=== PATIENT | male | born 1950 | race Asian ===

== ENCOUNTER 2016-05-01 07:50 | Outpatient (CLI) | payer MEDICARE, OTHER | END 2016-05-01 07:51 | disposition home or self-care (01) | DX: E78.5 Hyperlipidemia, unspecified (principal) ==

== ENCOUNTER 2016-05-29 14:27 | Outpatient (CLI) | payer MEDICARE, OTHER | END 2016-05-29 14:28 | disposition home or self-care (01) | DX: S50.02XA Contusion of left elbow, initial encounter (principal); R93.7 Abnormal findings on diagnostic imaging of other parts of musculoskeletal system ==

== ENCOUNTER 2017-12-27 07:02 | Outpatient (CLI) | payer MEDICARE, OTHER ==
[2017-12-27 12:17] LABS: BASOPHILS % (AUTO) 0.5 %; EOSINOPHILS # (AUTO) 0.2 10^3/uL (0.0-0.7); EOSINOPHILS % (AUTO) 2.2 %; LYMPHOCYTES # (AUTO) 3.1 10^3/uL (1.5-3.5); LYMPHOCYTES % (AUTO) 39.8 %; MEAN CORPUSCULAR HEMOGLOBIN 30.8 pg (27.0-31.0); MEAN CORPUSCULAR VOLUME 90.7 fL (80.0-94.0); MEAN PLATELET VOLUME 8.4 fL (7.4-11.4); MONOCYTES # (AUTO) 0.5 10^3/uL (0.0-1.0); MONOCYTES % (AUTO) 6.5 %; RED BLOOD COUNT 4.87 10^6/uL (4.70-6.10); RED CELL DISTRIBUTION WIDTH 14.1 % (12.0-15.0); WHITE BLOOD COUNT 7.8 x10^3/uL (4.8-10.8)
[2017-12-27 12:31] LABS: ALBUMIN 4.2 g/dL (3.2-5.5); ALBUMIN/GLOBULIN RATIO 1.6 (1.0-2.2); ALKALINE PHOSPHATASE 44 IU/L (42-121); ALT ALANINE AMINOTRANSFERASE 23 IU/L (10-60); AST ASPARTATE AMINOTRANSFERASE 22 IU/L (10-42); BILIRUBIN,TOTAL 1.3 mg/dL (0.2-1.0); BUN - BLOOD UREA NITROGEN 20 mg/dL (6-20); CALCIUM 8.8 mg/dL (8.5-10.3); CARBON DIOXIDE - CO2 26 mmol/L (21-32); CHLORIDE 106 mmol/L (101-111); CHOL/HDL RATIO 2.5 (<5.0); CHOLESTEROL 246 mg/dL; CREATININE 1.1 mg/dL (0.6-1.2); GFR - MDRD 67 (>89); GLUCOSE 80 mg/dL (70-100); HDL CHOLESTEROL 100 mg/dL; LDL CHOLESTEROL,CALCULATED 124 mg/dL; LDL/HDL RATIO 1.2 (<3.6); SODIUM 141 mmol/L (135-145); TOTAL PROTEIN 6.8 g/dL (6.7-8.2); VLDL CHOLESTEROL 22 mg/dL
[2017-12-27 18:37] LABS: HB2 TOTAL 15.9 g/dL; HEMOGLOBIN A1C 0.57 g/dL; HEMOGLOBIN A1C % 5.4 % (4.6-6.2)
== END 2017-12-27 07:03 | disposition home or self-care (01) ==
LOC: LAB.WCP 07:02
PROVIDERS: ATTEND Family Medicine
DX: E78.5 Hyperlipidemia, unspecified (principal); R73.01 Impaired fasting glucose
CPT/HCPCS: 36415; 80053; 80061; 83036; 83721; 84443; 85025

== ENCOUNTER 2020-03-07 09:33 | Outpatient (CLI) | payer MEDICARE, OTHER ==
[2020-03-07 12:28] LABS: BASOPHILS % (AUTO) 0.4 %; EOSINOPHILS # (AUTO) 0.2 10^3/uL (0.0-0.7); EOSINOPHILS % (AUTO) 1.8 %; HGB - HEMOGLOBIN 15.2 g/dL (14.0-18.0); LYMPHOCYTES % (AUTO) 18.8 %; MEAN CORPUSCULAR HGB CONC 33.5 g/dL (32.0-36.0); MEAN CORPUSCULAR VOLUME 92.5 fL (80.0-94.0); MONOCYTES # (AUTO) 0.7 10^3/uL (0.0-1.0); NEUTROPHILS # (AUTO) 7.4 10^3/uL (1.5-6.6); NEUTROPHILS % (AUTO) 71.6 %; PLT - PLATELET COUNT 70 10^3/uL (130-450); RED BLOOD COUNT 4.91 10^6/uL (4.70-6.10); RED CELL DISTRIBUTION WIDTH 13.3 % (12.0-15.0); WHITE BLOOD COUNT 10.4 x10^3/uL (4.8-10.8)
[2020-03-07 13:13] LABS: ALBUMIN 4.1 g/dL (3.2-5.5); ALBUMIN/GLOBULIN RATIO 1.5 (1.0-2.2); ALKALINE PHOSPHATASE 49 IU/L (42-121); ALT ALANINE AMINOTRANSFERASE 23 IU/L (10-60); AST ASPARTATE AMINOTRANSFERASE 22 IU/L (10-42); BILIRUBIN,TOTAL 1.1 mg/dL (0.2-1.0); BUN - BLOOD UREA NITROGEN 17 mg/dL (6-20); CALCIUM 9.4 mg/dL (8.5-10.3); CARBON DIOXIDE - CO2 26 mmol/L (21-32); CHLORIDE 105 mmol/L (101-111); CHOL/HDL RATIO 3.1 (<5.0); CHOLESTEROL 239 mg/dL; CREATININE 1.5 mg/dL (0.6-1.2); GLUCOSE 110 mg/dL (70-100); HDL CHOLESTEROL 76 mg/dL; LDL CHOLESTEROL,CALCULATED 138 mg/dL; LDL/HDL RATIO 1.8 (<3.6); SODIUM 143 mmol/L (135-145); TOTAL PROTEIN 6.8 g/dL (6.7-8.2); VLDL CHOLESTEROL 25 mg/dL
== END 2020-03-07 23:59 | disposition home or self-care (01) ==
LOC: LAB.WCP 09:33
PROVIDERS: ATTEND Family Medicine
DX: E78.5 Hyperlipidemia, unspecified (principal)
CPT/HCPCS: 36415; 80053; 80061; 83721; 84443; 85025

== ENCOUNTER 2020-03-09 10:49 | Emergency (ER) | payer MEDICARE ==
--- NOTE | 2020-03-09 11:15 | ED Physician Documentation ---
PD HPI ABD PAIN - Stated complaint Stated Complaint: ABDOMINAL PX - Chief complaint Chief Complaint: Abd Pain - History obtained from History obtained from: Patient - History of Present Illness Timing - onset: How many weeks ago (1) Timing - duration: Weeks (1) Timing - details: Gradual onset, Still present, Waxing and waning Quality: Cramping, Aching, Pain Location: RLQ Radiation: Other (right inguinal/scrotal area), Right flank Improved by: No: Eating Worsened by: No: Eating, Moving, Position Associated symptoms: Nausea. No: Fever, Vomiting, Diarrhea, Constipation, Dysuria, Hematuria Similar symptoms before: Has not had sx before Review of Systems Constitutional: denies: Fever, Chills Nose: denies: Rhinorrhea / runny nose, Congestion Throat: denies: Sore throat Cardiac: denies: Chest pain / pressure Respiratory: denies: Cough GI: denies: Nausea, Vomiting, Diarrhea : reports: Testicular pain (feels pain radiates to testicle at times, but not tender nor swelling in scrotum per se.). denies: Dysuria, Frequency, Testicular mass PD PAST MEDICAL HISTORY - Past Medical History Cardiovascular: None Respiratory: None Neuro: None Endocrine/Autoimmune: None - Present Medications Home Medications: Ambulatory Orders Medication Instructions Recorded Confirmed HYDROcod/ACETAM 5/325 [[place] 5/325] 1 ea PO Q6H PRN #18 tablet 03/09/20 Naproxen [EC-Naproxen] 500 mg PO BID #20 tablet. 03/09/20 Ondansetron Odt [Zofran] 4 mg TL Q6H PRN #10 tablet 03/09/20 - Allergies Allergies/Adverse Reactions: Allergies Allergy/AdvReac Type Severity Reaction Status Date / Time No Known Drug Allergies Allergy Verified 03/09/20 11:02 - Living Situation Living Arrangement: reports: At home - Social History Does the pt drink ETOH?: No - Family History Family history: denies: Aortic aneursym, Aortic dissection PD ED PE NORMAL - Vitals Vital signs reviewed: Yes - General General: Alert and oriented X 3, Well developed/nourished, Other (appears uncomfortable, standing in room and pacing some. ) - Neck Neck: Supple, no meningeal sign, No adenopathy - Cardiac Cardiac: RRR, No murmur - Respiratory Respiratory: Clear bilaterally - Abdomen Abdomen: Normal bowel sounds, Soft, Non distended, No organomegaly, Other (some tender without guarding RLQ. No inguinal masses nor hernias. ) - Male Male : Other (scrotum and testicle not tender and without any swelling. ) - Back Back: Other (mild right CVA tender. No rash nor sores. ) - Derm Derm: Normal color, Warm and dry Results - Vitals Vitals: Vital Signs - 24 hr 03/09/20 03/09/20 10:58 11:27 Temperature 35.6 C L Heart Rate 60 66 Respiratory 16 20 Rate Blood Pressure 177/94 H 151/103 H O2 Saturation 95 95 Oxygen O2 Source Room air - Labs Labs: Laboratory Tests 03/09/20 03/09/20 03/09/20 11:15 11:15 11:55 WBC 13.5 H RBC 4.94 Hgb 15.1 Hct 44.9 MCV 90.9 MCH 30.6 MCHC 33.6 RDW 13.1 Plt Count 222 MPV 9.8 Neut # (Auto) 11.3 H Lymph # (Auto) 1.4 L [place] # (Auto) 0.6 Eos # (Auto) 0.0 Baso # (Auto) 0.1 Absolute Nucleated RBC 0.00 Nucleated RBC % 0.0 Sodium 138 Potassium 3.5 Chloride 103 Carbon Dioxide 23 Anion Gap 12.0 BUN 17 Creatinine 1.4 H Estimated GFR (MDRD) 50 L Glucose 139 H Calcium 9.1 Total Bilirubin 0.9 AST 22 ALT 23 Alkaline Phosphatase 52 Total Protein 7.0 Albumin 4.3 Globulin 2.7 Albumin/Globulin Ratio 1.6 Lipase 22 Urine Color DARK YELLOW Urine Clarity CLEAR Urine pH 5.5 Ur Specific [place] >=1.030 H Urine Protein NEGATIVE Urine Glucose (UA) NEGATIVE Urine Ketones NEGATIVE Urine Occult Blood NEGATIVE Urine Nitrite NEGATIVE Urine Bilirubin NEGATIVE Urine Urobilinogen 0.2 (NORMAL) Ur Leukocyte Esterase NEGATIVE Ur Microscopic Review NOT INDICATED Urine Culture Comments NOT INDICATED - Rads (name of study) abd/pelvic CT Radiology: Prelim report reviewed (normal appendix, no acute process, no stones nor hydronephrosis. ), EMP read contemporaneously (I see some stranding around right kidney and I believe there is 4 mm stone distal right ureter just about to bladder. Differs from Rad reading. ), See rad report PD MEDICAL DECISION MAKING - ED course Complexity details: reviewed results, considered differential (His pain is really right lower quadrant with radiation to the scrotum/testicle and also the right flank. Consideration for kidney stone versus hernia versus right-sided diverticulitis or appendicitis.), d/w patient Departure - Departure Disposition: 01 Home, Self Care Clinical Impression: Abdominal pain Qualifiers: Abdominal location: right lower quadrant Qualified Code(s): R10.31 - Right l ower quadrant pain Condition: Stable Record reviewed to determine appropriate education?: Yes Instructions: ED Abdominal Pain Unkn Cause, ED Stone Renal W Colic Follow-Up: [place] [Provider Group] Prescriptions: Naproxen [EC-Naproxen] 500 mg PO BID #20 tablet. HYDROcod/ACETAM 5/325 [[place] 5/325] 1 ea PO Q6H PRN #18 tablet PRN Reason: Pain Ondansetron Odt [Zofran] 4 mg TL Q6H PRN #10 tablet PRN Reason: Nausea / Vomiting Comments: Urine is normal without any signs of infection. The CT scan read by the radiologist did not show any obvious abnormality to account for the pain. However a slight difference of opinion, I believe I am seeing a small stone at the distal ureter suggesting your pain is coming from passing a kidney stone. At this point it is reasonable to treat your symptoms with anti-inflammatories of naproxen twice daily for 5 to 7 days. Ondansetron if needed for nausea. Stay well-hydrated. Add Tylenol every 4-6 hours or hydrocodone if needed for worse pain. Recheck if not improved well/resolved over the next 2 to 3 days and return sooner if worsening. Discharge Date/Time: 03/09/20 14:11
[2020-03-09 11:23] LABS: BASOPHILS # (AUTO) 0.1 10^3/uL (0.0-0.1); BASOPHILS % (AUTO) 0.4 %; EOSINOPHILS % (AUTO) 0.1 %; HGB - HEMOGLOBIN 15.1 g/dL (14.0-18.0); LYMPHOCYTES # (AUTO) 1.4 10^3/uL (1.5-3.5); LYMPHOCYTES % (AUTO) 10.2 %; MEAN CORPUSCULAR HEMOGLOBIN 30.6 pg (27.0-31.0); MEAN CORPUSCULAR HGB CONC 33.6 g/dL (32.0-36.0); MEAN CORPUSCULAR VOLUME 90.9 fL (80.0-94.0); MEAN PLATELET VOLUME 9.8 fL (7.4-11.4); MONOCYTES # (AUTO) 0.6 10^3/uL (0.0-1.0); MONOCYTES % (AUTO) 4.5 %; NEUTROPHILS # (AUTO) 11.3 10^3/uL (1.5-6.6); NEUTROPHILS % (AUTO) 84.3 %; PLT - PLATELET COUNT 222 10^3/uL (130-450); RED BLOOD COUNT 4.94 10^6/uL (4.70-6.10); RED CELL DISTRIBUTION WIDTH 13.1 % (12.0-15.0); WHITE BLOOD COUNT 13.5 x10^3/uL (4.8-10.8)
[2020-03-09 11:28] VITALS: BP 151/103
[2020-03-09 11:36] LABS: ALBUMIN 4.3 g/dL (3.2-5.5); ALBUMIN/GLOBULIN RATIO 1.6 (1.0-2.2); BILIRUBIN,TOTAL 0.9 mg/dL (0.2-1.0); CALCIUM 9.1 mg/dL (8.5-10.3); CREATININE 1.4 mg/dL (0.6-1.2)
[2020-03-09] MEDS ORDERED: KETOROLAC 30 MG/ML VIAL IVP STA (11:37)
[2020-03-09] MEDS ORDERED: HYDROmorphone 1 MG/ML CARPUJECT IVP STA ×2 (11:37→13:29)
[2020-03-09] MEDS ORDERED: SODIUM CHLORIDE 0.9% 1,000 ML IV STA (11:37)
[2020-03-09 12:31] LABS: BILIRUBIN,URINE NEGATIVE (NEGATIVE); GLUCOSE, URINE (UA) NEGATIVE (NEGATIVE); KETONES,URINE (UA) NEGATIVE (NEGATIVE); LEUKOCYTE ESTERASE, URINE NEGATIVE (NEGATIVE); NITRITE,URINE NEGATIVE (NEGATIVE); OCCULT BLOOD,URINE NEGATIVE (NEGATIVE); PH,URINE 5.5 PH (5.0-7.5); PROTEIN,URINE NEGATIVE (NEGATIVE); UROBILINOGEN,URINE 0.2 (NORMAL) E.U./dL (NORMAL)
[2020-03-09 12:32] LABS: CLARITY,URINE CLEAR (CLEAR)
--- NOTE | 2020-03-09 12:50 | CT Report ---
PROCEDURE: Abdomen/Pelvis WO INDICATIONS: RLQ abd pain TECHNIQUE: Noncontrast 5 mm thick sections acquired from the diaphragms to the symphysis. 5 mm coronal and sagi ttal reformats were then performed. For radiation dose reduction, the following was used: automated exposure control, adjustment of mA and/or kV according to patient size. COMPARISON: None. FINDINGS: Image quality: Somewhat limited by absence of both oral and intravenous contrast. ABDOMEN: Lung bases: Lung bases are clear. Heart size is normal. Solid organs: Liver and spleen are normal in size. Gallbladder appears normal Pancreas is normal i n contours. No adrenal nodules. Kidneys are normal in size, without hydronephrosis or nephrolithias is. Peritoneum and bowel: Unenhanced bowel loops demonstrate normal wall thickness and caliber. No free fluid or air. Nodes and vessels: No retroperitoneal or mesenteric adenopathy by size criteria. Aorta and inferior vena cava are normal in caliber. Miscellaneous: No ventral hernias. PELVIS: Genitourinary: Bladder wall thickness is normal. Miscellaneous: No inguinal hernias or adenopathy. A normal appendix was found at the right lower qu adrant. Additionally, several pelvic phleboliths were seen within the retroperitoneum but no definite urinary tract stone is found. Bones: No suspicious bony lesions. No vertebral body compression fractures. IMPRESSION: No hydronephrosis or nephrolithiasis seen. A normal appendix was found at the right lower quadrant. S ource of current reported right lower quadrant pain is not identified. Reviewed by: Ugo Argueta MD on 03/09/2020 12:49 PM PST Approved by: Ugo Argueta MD on 03/09/2020 12:49 PM PST Station ID: [id number]
== END 2020-03-09 14:11 | disposition home or self-care (01) ==
LOC: ED 10:49
DX: R10.31 Right lower quadrant pain (principal)
CPT/HCPCS: 36415; 74176; 80053; 81003; 83690; 85025; 96374; 96375; 99284; J1170; 81001; 87086

== ENCOUNTER 2020-03-11 08:00 | Outpatient (CLI) | payer MEDICARE, OTHER | END 2020-03-11 23:59 | disposition home or self-care (01) | LOC: LAB.R 08:00 | PROVIDERS: ATTEND Internal Medicine | DX: Z12.11 Encounter for screening for malignant neoplasm of colon (principal) | CPT/HCPCS: 82274 ==

== ENCOUNTER 2020-03-11 08:00 | Outpatient (CLI) | payer MEDICARE, OTHER ==
[2020-03-11 18:46] LABS: BILIRUBIN,URINE NEGATIVE (NEGATIVE); GLUCOSE, URINE (UA) NEGATIVE (NEGATIVE); KETONES,URINE (UA) NEGATIVE (NEGATIVE); LEUKOCYTE ESTERASE, URINE NEGATIVE (NEGATIVE); NITRITE,URINE NEGATIVE (NEGATIVE); OCCULT BLOOD,URINE TRACE-INTA (NEGATIVE); PROTEIN,URINE NEGATIVE (NEGATIVE); UROBILINOGEN,URINE 0.2 (NORMAL) E.U./dL (NORMAL)
[2020-03-11 19:38] LABS: BACTERIA,URINE None Seen /HPF (None Seen); CLARITY,URINE CLEAR (CLEAR); MUCUS,URINE Few Strands; RBC,URINE 0-5 /HPF (0-5); SQUAMOUS EPITHELIAL CELL,UR RARE Squamous (<= Few)
== END 2020-03-11 23:59 | disposition home or self-care (01) ==
LOC: LAB.WCP 08:00
PROVIDERS: ATTEND Internal Medicine
DX: R10.31 Right lower quadrant pain (principal)
CPT/HCPCS: 81001; 87086

== ENCOUNTER 2020-03-14 13:20 | Outpatient (CLI) | payer MEDICARE, OTHER ==
[2020-03-14 09:35] LABS: ABNORMAL LYMPHS % (MANUAL) 0 %; BAND NEUTROPHILS % (MANUAL) 0 %
[2020-03-14 11:38] LABS: BASOPHILS # (AUTO) 0.1 10^3/uL (0.0-0.1); BASOPHILS % (AUTO) 0.6 %; EOSINOPHILS # (AUTO) 0.3 10^3/uL (0.0-0.7); EOSINOPHILS % (AUTO) 3.2 %; HGB - HEMOGLOBIN 15.3 g/dL (14.0-18.0); LYMPHOCYTES # (AUTO) 2.2 10^3/uL (1.5-3.5); LYMPHOCYTES % (AUTO) 23.6 %; MEAN CORPUSCULAR HEMOGLOBIN 30.9 pg (27.0-31.0); MEAN CORPUSCULAR HGB CONC 33.3 g/dL (32.0-36.0); MEAN CORPUSCULAR VOLUME 92.7 fL (80.0-94.0); MEAN PLATELET VOLUME 10.4 fL (7.4-11.4); MONOCYTES # (AUTO) 0.7 10^3/uL (0.0-1.0); NEUTROPHILS # (AUTO) 6.2 10^3/uL (1.5-6.6); NEUTROPHILS % (AUTO) 65.3 %; RED BLOOD COUNT 4.95 10^6/uL (4.70-6.10); WHITE BLOOD COUNT 9.5 x10^3/uL (4.8-10.8)
[2020-03-14 12:11] LABS: EOSINOPHILS # (MANUAL) 0.4 10^3/uL (0-0.7); LYMPHOCYTES # (MANUAL) 2.9 10^3/uL (1.5-3.5); LYMPHOCYTES % (MANUAL) 30 %; MONOCYTES # (MANUAL) 0.5 10^3/uL (0.0-1.0); PLATELET MORPHOLOGY PLATELET CLUMPING (NORMAL); RBC MORPHOLOGY (MULTIPLE) NORMAL APPEARANCE (NORMAL)
[2020-03-14 12:12] LABS: PLATELET ESTIMATE, MANUAL NORMAL (130-450,000) (NORMAL)
[2020-03-14 12:21] LABS: CALCIUM 8.7 mg/dL (8.5-10.3); CREATININE 1.4 mg/dL (0.6-1.2)
[2020-03-14 12:33] LABS: FOLATE 10.08 ng/mL (5.90 - >24.8)
[2020-03-15 12:17] LABS: HEPATITIS B SURFACE ANTIGEN NON-REACTIVE (NON-REACTIVE)
[2020-03-15 12:18] LABS: HEPATITIS C ANTIBODY NON-REACTIVE (NON-REACTIVE)
[2020-03-15 14:01] LABS: HIV AG/AB 4TH GEN NON-REACTIVE (NON-REACTIVE)
== END 2020-03-14 23:58 | disposition home or self-care (01) ==
LOC: LAB.WCP 13:20
PROVIDERS: ATTEND Internal Medicine
DX: R10.31 Right lower quadrant pain (principal); D69.6 Thrombocytopenia, unspecified
CPT/HCPCS: 36415; 80048; 82607; 82746; 85025; 86704; 86803; 87340; G0475; 87389

== ENCOUNTER 2020-03-23 07:57 | Outpatient (CLI) | payer MEDICARE ==
[2020-03-23] MEDS ORDERED: IOVERSOL 320 100 ML VIAL IVP ONE ×2 (08:09→13:53)
[2020-03-23] MEDS ORDERED: IOVERSOL 320 50 ML VIAL ONE (08:09)
--- NOTE | 2020-03-23 10:10 | CT Report ---
PROCEDURE: Abdomen/Pelvis W INDICATIONS: RT LOWER QUAD ABD PAIN CONTRAST: IV CONTRAST: Optiray 320 ml: 100 PO CONTRAST: Optiray 320 ml50 TECHNIQUE: After the administration of iodonated contrast, 5 mm thick sections acquired from the diaphragms to t he symphysis. 5 mm thick coronal and sagittal reformats were acquired. For radiation dose reduction , the following was used: automated exposure control, adjustment of mA and/or kV according to patien t size. COMPARISON: None. FINDINGS: Image quality: Excellent. ABDOMEN: Lung bases: Lung bases are clear. Heart size is normal. Solid organs: Liver and spleen are normal in size and enhancement. Gallbladder is normal. Biliar y system is non dilated. Pancreas enhances normally. No adrenal nodules. Kidneys demonstrate nilesh l size and enhancement, without hydronephrosis. Peritoneum and bowel: Bowel loops demonstrate normal wall thickness and caliber. No free fluid or a ir. There is diverticulosis without evidence of diverticulitis. Nodes and vessels: No retroperitoneal or mesenteric adenopathy by size criteria. The aorta has mild atherosclerosis. Aorta and inferior vena cava are normal in size. Miscellaneous: No ventral hernias. PELVIS: Genitourinary: Bladder wall thickness is normal. Miscellaneous: No inguinal hernias or adenopathy. Bones: No suspicious bony lesions. No vertebral body compression fractures. IMPRESSION: 1. No acute abdominal or pelvic abnormality. 2. Normal appendix. 3. No nephroureteral calculi. 4. Diverticulosis without evidence of diverticulitis. Reviewed by: Johnny Hinojosa on 03/23/2020 10:09 AM [facility] Approved by: Johnny Hinojosa on 03/23/2020 10:09 AM [facility] Station ID: [id number]
[2020-03-23] MEDS ORDERED: IOVERSOL 320 50 ML VIAL PO ONE (13:53)
== END 2020-03-23 07:58 | disposition home or self-care (01) ==
LOC: DI 07:57
PROVIDERS: ATTEND Internal Medicine
DX: K57.90 Diverticulosis of intestine, part unspecified, without perforation or abscess without bleeding (principal)
CPT/HCPCS: 74177; Q9967

== ENCOUNTER 2020-05-13 11:04 | Day surgery (SDC) | payer MEDICARE, OTHER ==
[2020-05-13] MEDS ORDERED: LACTATED RINGERS 1,000 ML IV ONE (11:43)
[2020-05-13] MEDS ORDERED: MIDAZOLAM 2 MG/2 ML VIAL ONE ×2 (14:00→14:26)
[2020-05-13] MEDS ORDERED: fentaNYL 250 MCG/5 ML VIAL ONE (14:00)
--- NOTE | 2020-05-13 14:06 | HISTORY & PHYSICAL EXAMINATION ---
Chief Complaint - Chief Complaint Chief Complaint: right lower quadrant pain Abdominal Pain HPI - History Obtained From History obtained from: Patient Exam limitations: No limitations - History of Present Illness Severity at the worst: Moderate (pain improving) HPI Comment/Other: He has musculoskeletal pain. He has known diverticulosis. He has never had colon cancer screening PMH/PSH - Past Medical History Cardiovascular: positive: None Respiratory: positive: None Neuro: positive: None Endocrine/Autoimmune: positive: None MRSA Hx?: No - Past Surgical History General: positive: Other Social & Family Hx - Social History Does the pt smoke?: No Smoking Status: Never smoker Does the pt drink ETOH?: No Meds/Allgy - Home Medications Home Medications: Ambulatory Orders Medication Instructions Recorded Confirmed Atorvastatin [Lipitor] 20 mg PO DAILY 05/13/20 05/13/20 Finasteride [Proscar] 1.25 mg PO DAILY 05/13/20 05/13/20 - Allergies Allergies/Adverse Reactions: Allergies Allergy/AdvReac Type Severity Reaction Status Date / Time No Known Drug Allergies Allergy Verified 03/09/20 11:02 Review of Systems - Other Findings Other Findings: 10 pt ros as above otherwise unremarkable Exam - Vital Signs Reviewed Vital Signs: Yes Vital Signs: Vital Signs x48h Temp Pulse Resp BP Pulse Ox 05/13/20 11:46 16 126/94 H 05/13/20 11:19 36.1 C L 64 16 139/101 H 98 - Physical Exam General Appearance: positive: No acute distress, Alert Eyes Bilateral: positive: Normal inspection, PERRL, EOMI ENT: positive: No signs of dehydration Neck: positive: No JVD, Trachea midline Respiratory: positive: No respiratory distress Cardiovascular: positive: Regular rate & rhythm Abdomen: positive: Non-tender, No distention Neurologic/Psychiatric: positive: Oriented x3 Impression/Plan - Problem List Problem List: He presents for colon cancer screening. parq held and consent obtained
[2020-05-13] MEDS ORDERED: LACTATED RINGERS 600 ML IV ONE (14:31)
[2020-05-13 15:12] VITALS: BP 108/86
== END 2020-05-13 11:05 | disposition home or self-care (01) ==
LOC: SDS 11:04
PROVIDERS: ATTEND Surgery
DX: R10.31 Right lower quadrant pain (principal); K57.30 Diverticulosis of large intestine without perforation or abscess without bleeding
CPT/HCPCS: 45378; J3010; J7120

== ENCOUNTER 2020-11-30 08:00 | Outpatient (CLI) | payer MEDICARE, OTHER ==
[2020-11-30 12:43] LABS: ESTIMATED AVERAGE GLUCOSE 117 mg/dL (70-100); HEMOGLOBIN A1c% 5.7 % (4.27-6.07)
[2020-11-30 12:52] LABS: ALT ALANINE AMINOTRANSFERASE 36 IU/L (10-60); BUN - BLOOD UREA NITROGEN 20 mg/dL (6-20); CARBON DIOXIDE - CO2 26 mmol/L (21-32); CHLORIDE 108 mmol/L (101-111); CHOL/HDL RATIO 2.3 (<5.0); CHOLESTEROL 186 mg/dL; CREATININE 1.1 mg/dL (0.6-1.2); GFR - MDRD 66 (>89); GLUCOSE 103 mg/dL (70-100); HDL CHOLESTEROL 81 mg/dL; LDL CHOLESTEROL,CALCULATED 90 mg/dL; LDL/HDL RATIO 1.1 (<3.6); POTASSIUM 3.9 mmol/L (3.5-5.0); SODIUM 142 mmol/L (135-145); TRIGLYCERIDES 73 mg/dL; VLDL CHOLESTEROL 15 mg/dL
== END 2020-11-30 23:59 | disposition home or self-care (01) ==
LOC: LAB.WCP 08:00
PROVIDERS: ATTEND Internal Medicine
DX: E78.5 Hyperlipidemia, unspecified (principal); R73.01 Impaired fasting glucose
CPT/HCPCS: 36415; 80048; 80061; 83036; 83721; 84460

== ENCOUNTER 2024-07-01 18:13 | Inpatient (IN) ==
[2024-07-01 21:06] LABS: BASOPHILS # (AUTO) 0.1 10^3/uL (0.0-0.1); BASOPHILS % (AUTO) 0.7 %; EOSINOPHILS # (AUTO) 1.2 10^3/uL (0.0-0.7); EOSINOPHILS % (AUTO) 12.9 %; HCT - HEMATOCRIT 37.5 % (42.0-52.0); HGB - HEMOGLOBIN 12.4 g/dL (14.0-18.0); LYMPHOCYTES # (AUTO) 0.9 10^3/uL (1.5-3.5); LYMPHOCYTES % (AUTO) 9.4 %; MEAN CORPUSCULAR HEMOGLOBIN 31.1 pg (27.0-31.0); MEAN CORPUSCULAR HGB CONC 33.1 g/dL (32.0-36.0); MEAN PLATELET VOLUME 9.1 fL (7.4-11.4); MONOCYTES % (AUTO) 10.3 %; NEUTROPHILS # (AUTO) 6.2 10^3/uL (1.5-6.6); NEUTROPHILS % (AUTO) 66.4 %; PLT - PLATELET COUNT 153 10^3/uL (130-450); RED BLOOD COUNT 3.99 10^6/uL (4.70-6.10); RED CELL DISTRIBUTION WIDTH 19.2 % (12.0-15.0); WHITE BLOOD COUNT 9.4 x10^3/uL (4.8-10.8)
[2024-07-01 21:19] LABS: ALBUMIN 2.7 g/dL (3.2-5.5); CALCIUM 7.5 mg/dL (8.5-10.3); CREATININE 0.9 mg/dL (0.6-1.3); POTASSIUM 3.7 mmol/L (3.5-4.5); TOTAL PROTEIN 5.4 g/dL (6.4-8.9)
[2024-07-01 21:20] LABS: INR 1.4 (0.8-1.2); PT - PROTHROMBIN TIME 14.7 secs (9.9-12.6)
[2024-07-01] MEDS ORDERED: iohexoL-300 100 ML VIAL ONE (21:20)
[2024-07-01 21:34] LABS: DIFFERENTIAL COMMENT MANUAL=AUTO DIFF; PLATELET ESTIMATE, MANUAL NORMAL (130-450,000) (NORMAL); PLATELET MORPHOLOGY NORMAL APPEARANCE (NORMAL); RBC MORPHOLOGY (MULTIPLE) 1+ OVALOCYTES (NORMAL); WBC MORPHOLOGY (MULTIPLE) 1+ SMUDGE CELLS (NORMAL)
[2024-07-01] MEDS: iohexoL-300 100 ML VIAL IVP ONE (21:55)
--- NOTE | 2024-07-01 22:04 | ED Physician Documentation ---
History of Present Illness Stated complaint Stated Complaint: BILAT LEG PX Chief complaint Chief Complaint: Ext Problem History obtained from History obtained from: Patient and Family (spouse who is present in the room) Additonal information Additional information: Patient is a 73-year-old male presenting to the emergency department with bilateral lower leg swelling. Patient has past medical history remarkable for stage IV lung cancer. Patient was only diagnosed a few months ago. He was diagnosed with non-small cell lung carcinoma he is currently undergoing palliative radiation and chemotherapy of capmatinib with Dr. Olmedo's office. Patient has mets to L-spine and T-spine on PET scan in April. He has findings of right lung collapse secondary to pleural effusion as well. He has had bilateral lower leg swelling going on for about a week but notes is at the worst it can be at this point. He can walk but has significant swelling associated with that he was scheduled for an ultrasound of his lower extremities today. The residential pest control technician saw significant bilateral clot burden and called the ER where he was sent after significant finding. Patient is not on blood thinners no adverse reactions to blood thinners in the past no history of GI bleeds. He has some shortness of breath that has been going on for about a week as well. He has no fevers or chills no redness to his legs. No numbness or tingling. Meds/Allgy Home Medications Ambulatory Orders Medication Instructions Recorded Confirmed magnesium gluconate 27 mg 27 mg PO BID 02/17/24 06/24/24 magnesium (500 mg) tablet mv-mn-folic 200 mcg-vit K 15 1 cap PO DAILY 02/17/24 06/24/24 mcg-lutein 5 mg-zeaxanthin 1 mg capsule (PreserVision AREDS 2 Plus Multivit) omega-3 fatty acids 1,000 mg 1,000 mg PO QDAY 02/17/24 06/24/24 capsule vit B complex 100 combo no.2 100 1 tab PO DAILY 02/17/24 06/24/24 mg tablet,extended release (B-100 Complex ER) finasteride 5 mg tablet 1.25 mg PO DAILY 02/18/24 06/24/24 magnesium oxide-magnesium amino 4 cap PO QDAY 03/23/24 06/24/24 acid chelate 300 mg capsule pantoprazole 40 mg tablet,delayed 40 mg PO BID #90 tabs 03/25/24 06/24/24 release (Protonix) folic acid 1 mg tablet 1 mg PO QDAY #90 tabs 05/01/24 06/24/24 lorazepam 0.5 mg tablet 0.5 mg PO ONCE PRN anxiety #7 tabs 05/05/24 06/24/24 oxycodone 10 mg tablet 20 mg (2 x 10 mg) PO Q3H PRN pain 05/08/24 06/24/24 #480 tabs capmatinib 150 mg tablet 300 mg (2 x 150 mg) PO BID #120 05/26/24 06/24/24 tabs Permanent Disabled Placard #1 ea 05/27/24 06/24/24 prochlorperazine maleate 10 mg 10 mg PO Q6H PRN nausea and 06/07/24 06/24/24 tablet vomiting #120 tabs fentanyl 100 mcg/hr transdermal 1 patch transdermal Q72H #10 ea 06/08/24 06/24/24 patch ondansetron 4 mg disintegrating 4 mg PO Q6H PRN nausea and 06/08/24 06/24/24 tablet vomiting #60 tabs fentanyl 75 mcg/hr transdermal 1 patch transdermal Q72H #5 ea 06/19/24 06/24/24 patch fluconazole 100 mg tablet 100 mg PO QDAY #1 tab 06/19/24 06/24/24 (Diflucan) nystatin 100,000 unit/mL oral 5 ml PO QID #200 mL 06/19/24 06/24/24 suspension sucralfate 1 gram tablet See Rx Instructions .Route 06/30/24 .COMPLEX #400 tabs Allergies Allergies Allergy/AdvReac Type Severity Reaction Status Date / Time No Known Drug Allergies Allergy Verified 07/01/24 18:26 PFSH Active Problems All Active Problems Encounter for antineoplastic chemotherapy (Acute) Leg swelling (Acute) Dyspnea (Acute) Muscle weakness (generalized) (Acute) Stage II pressure ulcer of buttock (Acute) Oral candidiasis (Acute) Obstructive pneumonia (Acute) Obstructive airway disease (Acute) Dehydration (Acute) Back pain (Acute) Collapse of right lung (Acute) Non-small cell lung cancer metastatic to liver (Acute) Spondylosis (Acute) Advance care planning (Acute) Cancer associated pain (Acute) Healthcare maintenance (Acute) 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(Acute) Anxiety (Acute) Constipation due to opioid therapy (Acute) Caregiver burden (Acute) Counseling regarding advance care planning and goals of care (Acute) Anorexia (Acute) Endobronchial mass (Acute) Helicobacter pylori gastritis (Acute) Epigastric pain (Acute) Allergic arthritis of right knee (Acute) Acute arthritis (Acute) Rotator cuff impingement syndrome (Acute) Diverticulitis, colon (Acute) Thrombocytopenia (Acute) DJD (degenerative joint disease), lumbar (Acute) Mixed hyperlipidemia (Acute) Medical History Medical History Gastritis Skin nodule Angular cheilitis Inflamed seborrheic keratosis Onychomycosis Chronic rhinitis Right upper quadrant abdominal pain Male pattern alopecia Exposure to hepatitis B 02/2020, + core antibody and - surface antigen Degenerative joint disease (DJD) of lumbar spine Hyperlipidemia History of diverticulosis Surgical History Surgical History H/O endoscopy History of esophagogastroduodenoscopy (EGD) (~03/25/24) gastritis, no ulcer History of hydrocelectomy History of colonoscopy Family History Family History Mother Diabetes Father CVA (cerebral vascular accident) Brother Diabetes Aunt Breast cancer Son Arthritis Social History Social History Smoking Status: Former smoker If you are a former smoker, when did you quit? (Date/Year): 1999 Number of Years Smoked: 20 How many cigarettes a day do you smoke? (20 cigarettes=1 Pk): 10 Second hand tobacco smoke exposure: No Do you dip or chew tobacco?: No Do you vape?: No Initiate information on smoking cessation: No Living arrangement: At home Marital Status: Living Condition: With spouse/s.o. 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: Yes Known occupational exposures/hazards (Current/Previous): toxins w/ pest control work Service: No POLST Patient has POLST: No Exam Constitutional normal general appearance HENMT normocephalic, head/scalp atraumatic and hearing grossly normal bilaterally Eyes PERRL, EOMs intact bilaterally and conjunctivae normal Neck/C-Spine visual inspection normal Lymph no lymphadenopathy noted Chest inspection of chest normal Respiratory breath sounds equal bilaterally and normal respiratory effort Diminished breath sound on right lungs, no pitting edema, no crackles, no wheeze or rales Cardiovascular normal heart rate noted, regular rhythm noted and no gallop Gastrointestinal abdomen normal to inspection Extremities . Patient 17-year-old female brought in by her boyfriend after she was trying to get into the car when she slipped and fell rolled her ankle and her knee. She thought her patella dislocated. She notes this happened before but when she was picked by up by her boyfriend she felt it pop back into place she has persistent pain to her left knee and left ankle. No numbness sensation no previous injury to this knee but she did dislocate her patella on her right leg. She took 2 ibuprofen before coming to the ER no head injury no LOC. Patient denies being . Capillary refill intact Skin skin color normal Results Vitals Vitals: Vital Signs - 24 hr 07/01/24 18:26 07/01/24 21:14 Temperature 37 C Temperature Source Temporal Artery Scan Pulse Rate 85 87 Respiratory Rate 18 16 Blood Pressure 107/78 111/72 O2 Saturation 98 95 O2 Source Room air Room air Pain Intensity 9 6 Oxygen O2 Source Room air Labs Labs: Laboratory Tests 07/01/24 21:00 WBC 9.4 RBC 3.99 L Hgb 12.4 L Hct 37.5 L MCV 94.0 MCH 31.1 H MCHC 33.1 RDW 19.2 H Plt Count 153 MPV 9.1 Neut # (Auto) 6.2 Lymph # (Auto) 0.9 L [place] # (Auto) 1.0 Eos # (Auto) 1.2 H Baso # (Auto) 0.1 Absolute Nucleated RBC 0.00 Band Neuts % (Manual) Not Reportable Abnorm Lymph % (Manual) Not Reportable Nucleated RBC % 0.0 Neutrophils # (Manual) Not Reportable Lymphocytes # (Manual) Not Reportable Monocytes # (Manual) Not Reportable Eosinophils # (Manual) Not Reportable Basophils # (Manual) Not Reportable Differential Comment MANUAL=AUTO DIFF WBC Morphology 1+ SMUDGE CELLS Platelet Estimate NORMAL (130-450,000) Platelet Morphology NORMAL APPEARANCE RBC Morph Micro Appear 1+ OVALOCYTES PT 14.7 H INR 1.4 H Sodium 135 Potassium 3.7 Chloride 104 Carbon Dioxide 28 Anion Gap 3.0 L BUN 16 Creatinine 0.9 Estimated GFR (MDRD) 82 L Glucose 139 H Calcium 7.5 L Total Bilirubin 1.0 AST 20 ALT 20 Alkaline Phosphatase 538 H Troponin I High Sens 11.3 Total Protein 5.4 L Albumin 2.7 L Globulin 2.7 Albumin/Globulin Ratio 1.0 Rads (name of study) CT/PE: Relevant Findings:: Prelim report reviewed and EMP independent interpretation of test PD Medical Decision Making ED course Complexity details: reviewed old records and reviewed results ED course: Patient 73-year-old male presents with bilateral lower leg swelling he had an ultrasound done outpatient for swelling going on for the past week that did show significant clots in bilateral legs. Patient has been having shortness of breath so he was sent to the ER. He has no chest pain only increased shortness of breath he is able to walk on bilateral lower legs he has extensive metastatic cancer from stage IV non-small cell lung cancer. He is currently undergoing palliative treatment at this time with Dr. Olmedo's office. CBC and CMP are unremarkable. CTA chest: Left lower lobe subsegmental pulmonary emboli. RV LV ratios is greater than 1, which can be a CT sign of right heart strain. This was called to the [facility] emergency department. Moderate right pleural effusion is new. This may be malignant. Right middle lobe collapse with bronchial occlusion again seen. Liver lesions, adrenal nodule, diffuse bone metastases again seen, not well evaluated on this study. Consider dedicated future oncologic surveillance imaging. ROMARIO score pending based on the troponin. Patient in no acute distress. Patient signed out to Dr. Valero. Discharge Plan Discharge Prescriptions: No Action finasteride 5 mg tablet 1.25 mg PO DAILY oxycodone 10 mg tablet 20 mg PO Q3H PRN (Reason: pain) Qty: 480 0RF capmatinib 150 mg tablet 300 mg PO BID Qty: 120 5RF prochlorperazine maleate 10 mg tablet 10 mg PO Q6H PRN (Reason: nausea and vomiting) Qty: 120 0RF fluconazole [Diflucan] 100 mg tablet 100 mg PO QDAY Qty: 1 0RF nystatin 100,000 unit/mL suspension 5 ml PO QID Qty: 200 2RF Rx Instructions: swish and swallow new RX today fentanyl 75 mcg/hr patch 72 hour 1 patch transdermal Q72H Qty: 5 0RF sucralfate 1 gram tablet See Rx Instructions .ROUTE .COMPLEX Qty: 400 6RF Dose Instruction: take 1 tablet by mouth before meals and at bedtime TOTAL 4 TIMES DAILY Rx Instructions: take 1 tablet by mouth before meals and at bedtime TOTAL 4 TIMES DAILY pantoprazole [Protonix] 40 mg tablet,delayed release (DR/EC) 40 mg PO BID Qty: 90 3RF folic acid 1 mg tablet 1 mg PO QDAY Qty: 90 1RF magnesium gluconate 27 mg magnesium (500 mg) tablet 27 mg PO BID B-100 Complex 100 mg tablet extended release 1 tab PO DAILY omega-3 fatty acids 1,000 mg capsule 1,000 mg PO QDAY PreserVision AREDS 2 Plus MV 200 mcg-15 mcg- 5 mg-1 mg capsule 1 cap PO DAILY magnesium oxide-Mg AA chelate 300 mg capsule 4 cap PO QDAY lorazepam 0.5 mg tablet 0.5 mg PO ONCE PRN (Reason: anxiety) Qty: 7 0RF Rx Instructions: to use one hour before imaging or procedures for anxiety (DME) Permanent Disabled Placard Misc See Rx Instructions .ROUTE .MEDSUPPLY Qty: 1 0RF Rx Instructions: As directed ondansetron 4 mg tablet,disintegrating 4 mg PO Q6H PRN (Reason: nausea and vomiting) Qty: 60 3RF fentanyl 100 mcg/hr patch 72 hour 1 patch transdermal Q72H Qty: 10 0RF Print Language: [place] Stand Alone Forms: PCP List
--- NOTE | 2024-07-01 22:29 | CT Report ---
PROCEDURE: CT Angio Chest INDICATIONS: sob, with BE dvts CONTRAST: 70CC [id number] TECHNIQUE: After the administration of intravenous contrast, 2 mm axial images were acquired from the pulmonary apices to the posterior costophrenic angles during the arterial phase. In addition, 1 mm lung kernel and 5 mm soft tissue kernel reconstructions were performed. 3-dimensional coronal oblique maximum int ensity projection (MIP) reformats, 8 mm axial MIP, and 5 mm coronal and sagittal MPR reformats were t hen performed through the thorax. For radiation dose reduction, the following was used: automated exp osure control, adjustment of mA and/or kV according to patient size. COMPARISON: 03/31/2024 FINDINGS: Image quality: Diagnostic Lungs and pleura:Moderate right pleural effusion, new. Right middle lobe complete atelectasis again s een, with bronchial occlusion. No dense airspace disease in the left lung. Lingular scarring/atelecta sis is present. Mediastinum, heart, and esophagus: Left lower lobe subsegmental pulmonary emboli. Normal heart size. Prominent subcarinal lymph node measures 1.1 cm. RV LV ratios is greater than 1. Chest wall and thyroid: Unremarkable Upper abdomen: Liver lesions again seen, not well assessed on this study. Right adrenal nodule again seen Bones: Diffuse bone metastases. IMPRESSION: Left lower lobe subsegmental pulmonary emboli. RV LV ratios is greater than 1, which can be a CT sign of right heart strain. This was called to the [facility] emergency department. Moderate right pleural effusion is new. This may be malignant. Right middle lobe collapse with bronch ial occlusion again seen. Liver lesions, adrenal nodule, diffuse bone metastases again seen, not well evaluated on this study. Consider dedicated future oncologic surveillance imaging. Reviewed by: Rodri Negrete MD on 07/01/2024 10:27 PM PDT Approved by: Rodri Negrete MD on 07/01/2024 10:27 PM PDT Station ID: [id number]
[2024-07-01] MEDS: ENOXAPARIN 100 MG/ML SYRINGE SUBQ SCH (22:42)
[2024-07-01] MEDS ORDERED: SUCRALFATE 1 GM SCH (23:30)
--- NOTE | 2024-07-01 23:36 | HISTORY & PHYSICAL EXAMINATION ---
Chief Complaint Chief Complaint Chief Complaint: Leg swelling and shortness of breath History of Present Illness Admitted From Admitted From:: Home History Obtained From Records Reviewed: Yes History obtained from: patient, family at bedside,ED physician Exam Limitations: Telemedicine History of Present Illness HPI Comment/Other: Mr. Christian presented to the ED for follow up of lower extremity swelling. Doppler ultrasound demonstrated bilateral lower extremity DVTs. Patient also reported shortness of breath that has been associated with his lower extremity edema and has progressively worsened over the past week. He denied cough or chest pain. CT was obtained in the ED and demonstrated right subsegmental PE. patient vitals were stable on room air, he was without chest pain. Troponin and EKG within normal limits. Hospitalist asked to admit for observation and intiation of anticoagulation. Review of Systems Status of ROS: 10 or more systems reviewed and unremarkable except as noted in history and below PFSH Active Problems All Active Problems (Updated 07/01/24 @ 23:15 by Amena Newsome PA-C) Pulmonary embolism on left (Acute) Acute bilateral deep vein thrombosis (DVT) of popliteal veins (Acute) Encounter for antineoplastic chemotherapy (Acute) Leg swelling (Acute) Dyspnea (Acute) Muscle weakness (generalized) (Acute) Stage II pressure ulcer of buttock (Acute) Oral candidiasis (Acute) Obstructive pneumonia (Acute) Obstructive airway disease (Acute) Dehydration (Acute) Back pain (Acute) Collapse of right lung (Acute) Non-small cell lung cancer metastatic to liver (Acute) Spondylosis (Acute) Advance care planning (Acute) Cancer associated pain (Acute) Healthcare maintenance (Acute) 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(Acute) Anxiety (Acute) Constipation due to opioid therapy (Acute) Caregiver burden (Acute) Counseling regarding advance care planning and goals of care (Acute) Anorexia (Acute) Endobronchial mass (Acute) Helicobacter pylori gastritis (Acute) Epigastric pain (Acute) Allergic arthritis of right knee (Acute) Acute arthritis (Acute) Rotator cuff impingement syndrome (Acute) Diverticulitis, colon (Acute) Thrombocytopenia (Acute) DJD (degenerative joint disease), lumbar (Acute) Mixed hyperlipidemia (Acute) Medical History Medical History (Updated 07/01/24 @ 23:15 by Amena Newsome PA-C) Gastritis Skin nodule Angular cheilitis Inflamed seborrheic keratosis Onychomycosis Chronic rhinitis Right upper quadrant abdominal pain Male pattern alopecia Exposure to hepatitis B 02/2020, + core antibody and - surface antigen Degenerative joint disease (DJD) of lumbar spine Hyperlipidemia History of diverticulosis Surgical History Surgical History H/O endoscopy History of esophagogastroduodenoscopy (EGD) (~03/25/24) gastritis, no ulcer History of hydrocelectomy History of colonoscopy Family History Family History Mother Diabetes Father CVA (cerebral vascular accident) Brother Diabetes Aunt Breast cancer Son Arthritis Social History Social History Smoking Status: Former smoker If you are a former smoker, when did you quit? (Date/Year): 1999 Number of Years Smoked: 20 How many cigarettes a day do you smoke? (20 cigarettes=1 Pk): 10 Second hand tobacco smoke exposure: No Do you dip or chew tobacco?: No Do you vape?: No Initiate information on smoking cessation: No Living arrangement: At home Marital Status: Living Condition: With spouse/s.o. 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 work Service: No POLST Patient has POLST: No Meds/Allgy Home Medications Ambulatory Orders Medication Instructions Recorded Confirmed magnesium gluconate 27 mg 27 mg PO BID 02/17/24 06/24/24 magnesium (500 mg) tablet mv-mn-folic 200 mcg-vit K 15 1 cap PO DAILY 02/17/24 06/24/24 mcg-lutein 5 mg-zeaxanthin 1 mg capsule (PreserVision AREDS 2 Plus Multivit) omega-3 fatty acids 1,000 mg 1,000 mg PO QDAY 02/17/24 06/24/24 capsule vit B complex 100 combo no.2 100 1 tab PO DAILY 02/17/24 06/24/24 mg tablet,extended release (B-100 Complex ER) finasteride 5 mg tablet 1.25 mg PO DAILY 02/18/24 06/24/24 magnesium oxide-magnesium amino 4 cap PO QDAY 03/23/24 06/24/24 acid chelate 300 mg capsule pantoprazole 40 mg tablet,delayed 40 mg PO BID #90 tabs 03/25/24 06/24/24 release (Protonix) folic acid 1 mg tablet 1 mg PO QDAY #90 tabs 05/01/24 06/24/24 lorazepam 0.5 mg tablet 0.5 mg PO ONCE PRN anxiety #7 tabs 05/05/24 06/24/24 oxycodone 10 mg tablet 20 mg (2 x 10 mg) PO Q3H PRN pain 05/08/24 06/24/24 #480 tabs capmatinib 150 mg tablet 300 mg (2 x 150 mg) PO BID #120 05/26/24 06/24/24 tabs Permanent Disabled Placard #1 ea 05/27/24 06/24/24 prochlorperazine maleate 10 mg 10 mg PO Q6H PRN nausea and 06/07/24 06/24/24 tablet vomiting #120 tabs fentanyl 100 mcg/hr transdermal 1 patch transdermal Q72H #10 ea 06/08/24 06/24/24 patch ondansetron 4 mg disintegrating 4 mg PO Q6H PRN nausea and 06/08/24 06/24/24 tablet vomiting #60 tabs fentanyl 75 mcg/hr transdermal 1 patch transdermal Q72H #5 ea 06/19/24 06/24/24 patch fluconazole 100 mg tablet 100 mg PO QDAY #1 tab 06/19/24 06/24/24 (Diflucan) nystatin 100,000 unit/mL oral 5 ml PO QID #200 mL 06/19/24 06/24/24 suspension sucralfate 1 gram tablet See Rx Instructions .Route 06/30/24 .COMPLEX #400 tabs Allergies Allergies Allergy/AdvReac Type Severity Reaction Status Date / Time No Known Drug Allergies Allergy Verified 07/01/24 18:26 Exam Exam Physical examination as recorded was obtained from patient reported information, finding reported by onsite staff, and peripheral observation. Constitutional no apparent distress Chest inspection of chest normal and palpation of chest normal Respiratory normal respiratory effort and no use of accessory muscles Cardiovascular normal heart rate noted and regular rhythm noted Extremities abnormal to inspection (bilateral edema to the level of the knee. No erythma noted), tenderness noted and full ROM Skin no rash Conclusion/Plan Problem List (1) Pulmonary embolism on left: Plan: Shortness of breath of acute onset, worsening for a week. CT reviewed by myself demonstrating subsegmental left lobe pulmonary emboli, with possible right heart strain. will continue to manage as follows: - initiate anticoagulation management with subcutaneous lovenox at 1mg/kg, monitor for clincial signs of bleeding, h and h, platelets and coags adjust to avoid toxicity -ECHO to evaluate further for right heart strain -close monitoring on continuous telmetry -supplemental oxygen as needed (2) Acute bilateral deep vein thrombosis (DVT) of popliteal veins: Plan: Progressive lower extremity swelling for a week. Outside Doppler ultrasound of bilateral lower extremity demonstrating DVTs in both legs, continue to manage as follows: -continue with anticoagulation with Lovenox, monitor as noted above -monitor peripheral pulses (3) Non-small cell lung cancer metastatic to liver: Plan: Metastatic stage 4.stable RML atelectasis, new effusion. On palliative chemoradiation -will continue prescribe regimen of capmatinib -continue pain mangement with fentanyl pathch and oxycodone, monitor vitals and clinical response to avoid toxicity -incentive spirometry and supplemental oxygen as tolerated. Lab Results 07/01/24 21:00 07/01/24 21:00 Core Measures Anticipated LOS I expect patient to be DC'd or transferred within 96 hours.: Yes DVT/VTE - Prophylaxis VTE/DVT Device ordered at admit?: Yes VTE/DVT Prophylaxis med ordered at admit?: Yes Telemedicine Consult Details Provider Location & Consult Time Telemedicine consultation conducted via videoconferencing?: Yes
[2024-07-01] MEDS: FENTANYL 75 MCG/HR TD SCH (23:53)
[2024-07-02] MEDS ORDERED: ACETAMINOPHEN 325 MG TABLET PO PRN (00:47)
[2024-07-02] MEDS ORDERED: SODIUM CHLORIDE FLUSH 0.9% 10 ML SYRINGE IVP PRN (00:47)
[2024-07-02] MEDS: oxyCODONE 5 MG TABLET PO PRN (01:19)
[2024-07-02] MEDS: ONDANSETRON 4 MG/2 ML VIAL IVP PRN (01:19)
[2024-07-02] MEDS: MIRTAZAPINE 15 MG TABLET PO SCH (01:58)
[2024-07-02] MEDS: SODIUM CHLORIDE FLUSH 0.9% 10 ML SYRINGE IVP SCH (01:59)
[2024-07-02 05:41] LABS: HCT - HEMATOCRIT 31.2 % (42.0-52.0); HGB - HEMOGLOBIN 10.4 g/dL (14.0-18.0); MEAN CORPUSCULAR HEMOGLOBIN 31.1 pg (27.0-31.0); MEAN CORPUSCULAR HGB CONC 33.3 g/dL (32.0-36.0); MEAN CORPUSCULAR VOLUME 93.4 fL (80.0-94.0); MEAN PLATELET VOLUME 9.9 fL (7.4-11.4); RED BLOOD COUNT 3.34 10^6/uL (4.70-6.10); RED CELL DISTRIBUTION WIDTH 19.1 % (12.0-15.0); WHITE BLOOD COUNT 8.3 x10^3/uL (4.8-10.8)
[2024-07-02 05:55] LABS: CALCIUM 6.9 mg/dL (8.5-10.3); CREATININE 0.8 mg/dL (0.6-1.3); POTASSIUM 3.8 mmol/L (3.5-4.5)
[2024-07-02] MEDS: SUCRALFATE 1 GM/10 ML UDC PO SCH (07:40)
[2024-07-02] MEDS: PANTOPRAZOLE 40 MG TABLET PO SCH (09:21)
[2024-07-02] MEDS: ENOXAPARIN 100 MG/ML SYRINGE SUBQ SCH (09:22)
[2024-07-02] MEDS ORDERED: ONDANSETRON ODT 4 MG TABLET PO PRN (09:41)
[2024-07-02] MEDS: fentaNYL 50 MCG PATCH TOP SCH (11:45)
[2024-07-02] MEDS: FOLIC ACID 1 MG TABLET PO SCH (11:45)
--- NOTE | 2024-07-02 12:22 | PROVIDER PROGRESS NOTE ---
Subjective Subjective Subjective: Patient is a 73-year-old male with a history of non-small cell lung cancer with widely metastatic disease who presented for dyspnea, lower extremity leg swelling. He was found to have bilateral DVTs, as well as left lower lobe segmental pulmonary embolism. CT also showed a moderate right pleural effusion, which is new. He also has a right middle lobe collapse with bronchial occlusion. He was started on therapeutic Lovenox. Echo was ordered to assess for right heart strain. Patient states that he noticed lower extremity swelling over the last few days. Then started having pain in his legs. He is also had worsening dyspnea, at rest and with exertion. This morning, he is very sleepy and tired. He is able to tell me the above history, but falls asleep mid conversation. His is at bedside. She spoke with palliative care today. The patient follows closely with palliative care. We did discuss hospice briefly, she would like more information about this. Mattrafat, with palliative care, was spoken with as well; she will speak with the . Current Medications Current Medications Current Medications: Current Medications Generic Name Dose Route Start Last Admin Trade Name Freq PRN Reason Stop Dose Admin Acetaminophen 650 mg 07/02/24 00:47 Acetaminophen 325 Mg Tablet PO Q4HR PRN Pain 1 to 4, or Fever Enoxaparin Sodium 70 mg 07/02/24 09:00 07/02/24 09:22 Enoxaparin 100 Mg/Ml Syringe 1 mg/kg (70 mg) 70 mg SUBQ Administration BID KINGS Fentanyl 2 patch 07/02/24 11:00 07/02/24 11:45 Fentanyl 50 Mcg Patch TOP 2 patch Q72H KINGS Administration Finasteride 1.25 mg 07/03/24 09:00 Finasteride 5 Mg Tablet PO DAILY KINGS Folic Acid 1 mg 07/02/24 10:00 07/02/24 11:45 Folic Acid 1 Mg Tablet PO 1 mg DAILY KINGS Administration Mirtazapine 15 mg 07/02/24 02:00 07/02/24 01:58 Mirtazapine 15 Mg Tablet PO 15 mg QPM KINGS Administration Nystatin 5 ml 07/02/24 13:00 Nystatin 934594 Units/5 Ml Udc PO QID KINGS Ondansetron HCl 4 mg 07/02/24 00:47 07/02/24 01:19 Ondansetron 4 Mg/2 Ml Vial IVP 4 mg Q6HR PRN Administration Nausea / Vomiting Ondansetron HCl 4 mg 07/02/24 09:41 Ondansetron Odt 4 Mg Tablet PO Q6H PRN nausea and vomiting Oxycodone HCl 20 mg 07/01/24 23:42 07/02/24 01:19 Oxycodone 5 Mg Tablet PO 20 mg Q3HR PRN Administration PAIN >8 Pantoprazole Sodium 40 mg 07/02/24 09:00 07/02/24 09:21 Pantoprazole 40 Mg Tablet PO 40 mg BID KINGS Administration Patient Own Med ( 2 each 07/02/24 11:30 07/02/24 11:45 Capmatinib 150 Mg PO 2 each Tablet) 1130,2200 KINGS Administration Sodium Chloride 10 ml 07/02/24 00:47 Sodium Chloride Flush 0.9% 10 Ml Syringe IVP PRN PRN NEEDED PER PROVIDER ORDERS Sodium Chloride 10 ml 07/02/24 01:00 07/02/24 09:22 Sodium Chloride Flush 0.9% 10 Ml Syringe IVP 10 ml 0100,0900,1700 KINGS Administration Sucralfate 1 gm 07/02/24 07:00 07/02/24 11:45 Sucralfate 1 Gm/10 Ml Udc PO 1 gm 0700,1100,1600,2200 KINGS Administration Objective Vital Signs/Intake & Output Reviewed Vital Signs: Yes Vital Signs: Vital Signs x48h Temp Pulse Resp BP Pulse Ox 07/02/24 08:48 98.8 F 82 18 111/73 95 07/02/24 05:37 97.9 F 92 20 99/61 93 Intake & Output: Intake & Output 06/29/24 06/30/24 07/01/24 07/02/24 23:59 23:59 23:59 23:59 Intake Total 200 / 200 Balance 200 / 200 Weight (kg) 67.132 kg 68 kg Objective General Appearance: positive No acute distress, Alert and Lethargic Eyes Bilateral: positive Normal inspection, PERRL, EOMI and Other (Cachectic in appearance) ENT: positive ENT inspection nml, Pharynx nml and No signs of dehydration Neck: positive Nml inspection, Thyroid nml and No JVD Respiratory: positive Chest non-tender, No respiratory distress and Other (Diminished breath sounds in right lung arguelles, upper and lower; diffuse mild Rales noted) Cardiovascular: positive Regular rate & rhythm and No murmur; negative Tachycardia Abdomen: positive Non-tender; negative Guarding, Rebound, Hepatomegaly, Splenomegaly or Mass Back: positive Nml inspection; negative CVA tenderness (R) or CVA tenderness (L) Skin: positive Color nml, No rash, Warm and Dry Extremities: positive Non-tender, Full ROM, Nml appearance and No pedal edema Neurologic/Psychiatric: positive Oriented x3, Motor nml, Sensation nml and Mood/affect nml Lab Results 07/02/24 04:56 07/02/24 04:56 Other Labs: Lab Results x24hrs 07/02/24 07/01/24 Range/Units 04:56 21:00 WBC 8.3 9.4 (4.8-10.8) x10^3/uL RBC 3.34 L 3.99 L (4.70-6.10) 10^6/uL Hgb 10.4 L 12.4 L (14.0-18.0) g/dL Hct 31.2 L 37.5 L (42.0-52.0) % MCV 93.4 94.0 (80.0-94.0) fL MCH 31.1 H 31.1 H (27.0-31.0) pg MCHC 33.3 33.1 (32.0-36.0) g/dL RDW 19.1 H 19.2 H (12.0-15.0) % Plt Count 128 L 153 (130-450) 10^3/uL MPV 9.9 9.1 (7.4-11.4) fL Neut # (Auto) 6.2 (1.5-6.6) 10^3/uL Lymph # (Auto) 0.9 L (1.5-3.5) 10^3/uL Amelia # (Auto) 1.0 (0.0-1.0) 10^3/uL Eos # (Auto) 1.2 H (0.0-0.7) 10^3/uL Baso # (Auto) 0.1 (0.0-0.1) 10^3/uL Absolute Nucleated RBC 0.00 x10^3/uL Band Neuts % (Manual) Not Reportable Abnorm Lymph % (Manual) Not Reportable Nucleated RBC % 0.0 /100WBC Neutrophils # (Manual) Not Reportable Lymphocytes # (Manual) Not Reportable Monocytes # (Manual) Not Reportable Eosinophils # (Manual) Not Reportable Basophils # (Manual) Not Reportable Differential Comment MANUAL=AUTO DIFF WBC Morphology 1+ SMUDGE CELLS (NORMAL) Platelet Estimate NORMAL (130-450,000) (NORMAL) Platelet Morphology NORMAL APPEARANCE (NORMAL) RBC Morph Micro Appear 1+ OVALOCYTES (NORMAL) PT 14.7 H (9.9-12.6) secs INR 1.4 H (0.8-1.2) Sodium 136 135 (135-145) mmol/L Potassium 3.8 3.7 (3.5-4.5) mmol/L Chloride 107 104 (101-111) mmol/L Carbon Dioxide 26 28 (21-32) mmol/L Anion Gap 3.0 L 3.0 L (6-13) BUN 14 16 (6-20) mg/dL Creatinine 0.8 0.9 (0.6-1.3) mg/dL Estimated GFR (MDRD) 94 82 L (>89) Glucose 116 H 139 H (74-104) mg/dL Calcium 6.9 L 7.5 L (8.5-10.3) mg/dL Total Bilirubin 1.0 (0.2-1.0) mg/dL AST 20 (10-42) IU/L ALT 20 (10-60) IU/L Alkaline Phosphatase 538 H (42-121) IU/L Troponin I High Sens 11.3 (2.3-19.7) ng/L B-Natriuretic Peptide 34 (5-100) pg/mL Total Protein 5.4 L (6.4-8.9) g/dL Albumin 2.7 L (3.2-5.5) g/dL Globulin 2.7 (2.1-4.2) g/dL Albumin/Globulin Ratio 1.0 (1.0-2.2) Diagnostic Imaging Diagnostic Imaging Results: positive Final report reviewed Assessment/Plan Problem List (1) Pulmonary embolism on left: Impression: Patient has history of non-small cell lung cancer with diffuse metastasis. Underlying hypercoagulable state. Ultrasound shows bilateral DVTs, as well as PE. Continue Lovenox. I have reached out to Dr. Olmedo, his oncologist, for further recommendations on anticoagulation moving forward. (2) Acute bilateral deep vein thrombosis (DVT) of popliteal veins: Impression: Patient has history of non-small cell lung cancer with diffuse metastasis. Underlying hypercoagulable state. Ultrasound shows bilateral DVTs, as well as PE. Continue Lovenox. I have reached out to Dr. Olmedo, his oncologist, for further recommendations on anticoagulation moving forward. (3) Non-small cell lung cancer metastatic to liver: Impression: Patient follows up with palliative care, as well as oncology, Dr. Olmedo. Currently on treatment. Patient has very poor functional reserve, appears very frail, and has stage IV disease. Likely great candidate for hospice. Awaiting discussion with palliative care. (4) Pleural effusion, right: Impression: New right-sided pleural effusion, likely postobstructive from cancer. Patient remains on room air, and has no dyspnea at rest. Continue to monitor. (5) Cancer associated pain: Impression: Continue fentanyl, oxycodone as needed, per home regimen. (6) Oral candidiasis: Impression: Continue nystatin.
--- NOTE | 2024-07-02 12:31 | PHARMACY PROGRESS NOTE ---
Best Possible Medication History Admit Date and Time: 07/02/24 1145 Home Medications Medication Instructions Recorded Confirmed Type magnesium gluconate 27 mg 27 mg PO BID 02/17/24 07/02/24 History magnesium (500 mg) tablet mv-mn-folic 200 mcg-vit K 15 1 cap PO DAILY 02/17/24 07/02/24 History mcg-lutein 5 mg-zeaxanthin 1 mg capsule (PreserVision AREDS 2 Plus Multivit) omega-3 fatty acids 1,000 mg 1,000 mg PO QDAY 02/17/24 07/02/24 History capsule vit B complex 100 combo no.2 100 1 tab PO DAILY 02/17/24 07/02/24 History mg tablet,extended release (B-100 Complex ER) magnesium oxide-magnesium amino 4 cap PO QDAY 03/23/24 07/02/24 History acid chelate 300 mg capsule pantoprazole 40 mg tablet,delayed 40 mg PO BID #90 tabs 03/25/24 07/02/24 Rx release (Protonix) folic acid 1 mg tablet 1 mg PO QDAY #90 tabs 05/01/24 07/02/24 Rx lorazepam 0.5 mg tablet 0.5 mg PO ONCE PRN anxiety #7 tabs 05/05/24 07/02/24 Rx capmatinib 150 mg tablet 300 mg (2 x 150 mg) PO BID #120 05/26/24 07/02/24 Rx tabs Permanent Disabled Placard #1 ea 05/27/24 06/24/24 Rx ondansetron 4 mg disintegrating 4 mg PO Q6H PRN nausea and 06/08/24 07/02/24 Rx tablet vomiting #60 tabs fentanyl 75 mcg/hr transdermal 1 patch transdermal Q72H #5 ea 06/19/24 07/02/24 Rx patch nystatin 100,000 unit/mL oral 5 ml PO QID #200 mL 06/19/24 07/02/24 Rx suspension sucralfate 1 gram tablet See Rx Instructions .Route 06/30/24 07/02/24 Rx .COMPLEX #400 tabs mirtazapine 15 mg tablet 15 mg PO QPM 07/02/24 07/02/24 History oxycodone 10 mg tablet 10 mg PO Q3H PRN pain 07/02/24 07/02/24 History Processed by: Pharmacy Medications reviewed in ED?: No Medication History completed: Yes Patient Interview: Completed Secondary Source(s): Spouse/Significant other, Pharmacy records and Insurance records [facility] Statement: As the person ultimately responsible for medication therapy, providers are able to order a medication from an existing home medication list in [facility] via the "Reconcile Routine" prior to Confirmation of that medication by network and threat support specialist. Such practice is discouraged except when the physician, in their clinical judgment, deems that a medical need exists for a medication without regard to previous use.
[2024-07-02] MEDS: NYSTATIN 500000 UNITS/5 ML UDC PO SCH (13:25)
[2024-07-02] MEDS: FENTANYL 75 MCG/HR TOP SCH (19:55)
[2024-07-03 05:37] LABS: HCT - HEMATOCRIT 30.8 % (42.0-52.0); HGB - HEMOGLOBIN 10.2 g/dL (14.0-18.0); MEAN CORPUSCULAR HEMOGLOBIN 31.2 pg (27.0-31.0); MEAN CORPUSCULAR HGB CONC 33.1 g/dL (32.0-36.0); MEAN CORPUSCULAR VOLUME 94.2 fL (80.0-94.0); RED BLOOD COUNT 3.27 10^6/uL (4.70-6.10); RED CELL DISTRIBUTION WIDTH 19.3 % (12.0-15.0)
[2024-07-03 06:01] LABS: CALCIUM 6.7 mg/dL (8.5-10.3); CREATININE 0.9 mg/dL (0.6-1.3); POTASSIUM 3.7 mmol/L (3.5-4.5)
[2024-07-03] MEDS: SENNA 8.6 MG TABLET PO SCH (10:01)
[2024-07-03] MEDS: FINASTERIDE 5 MG TABLET PO SCH (10:03)
--- NOTE | 2024-07-03 11:44 | Discharge Summary ---
"Discharge Summary Admit Date: 07/01/24 Discharge Date: 07/03/24 Discharging Provider: Dr. Ingris Romero Primary Care Provider: Dr. Olmedo - Oncology, Joyce Gómez - Palliative Code Status: Do Not Attempt Resuscitation Discharge Facility Name: Home with home health DIAGNOSES Admission Diagnoses: Pulmonary embolism on left Acute bilateral deep venous thrombosis of popliteal veins Non-small cell lung cancer with metastasis to the liver Discharge Diagnoses with Status of Each Condition: Pulmonary embolism on leftpatient has history of non-small cell lung cancer with diffuse metastasis. He spends more than half of his day in bed or in his reclining chair. Ultrasound shows bilateral DVTs as well as PE. Echo does not show any evidence of right heart strain. Lovenox was transition to oral Eliquis. He is to complete a week of Eliquis 10 mg twice a day, followed by 5 mg twice a day. He already has an appointment with his oncologist on Saturday, advised to keep this up appointment. Acute bilateral DVT of popliteal veinssee above. Non-small cell lung cancer with metastasis to the liverpatient does follow-up with palliative care, as well as oncology. He has stage IV disease, is on immunotherapy, and completed palliative radiation. I did have the hospice team speak with him and his , and provide information. They would like to talk with Dr. Olmedo first about neck steps prior to enrolling in hospice. Pleural effusion, rightnew right-sided pleural effusion likely postobstructive from cancer. Patient remains on room air and has no dyspnea at rest. Will hold off on thoracentesis, but may require therapeutic thoracentesis if continues to have dyspnea. Cancer associated paincontinue fentanyl, oxycodone as needed. Oral candidiasiscontinue nystatin. Severe protein calorie malnutritionpatient is on mirtazapine for appetite stimulation. He just has a poor appetite at this time. HPI History of Present Illness: Per Dr. Parker: Mr. Christian presented to the ED for follow up of lower extremity swelling. Doppler ultrasound demonstrated bilateral lower extremity DVTs. Patient also reported shortness of breath that has been associated with his lower extremity edema and has progressively worsened over the past week. He denied cough or chest pain. CT was obtained in the ED and demonstrated right subsegmental PE. patient vitals were stable on room air, he was without chest pain. Troponin and EKG within normal limits. Hospitalist asked to admit for observation and intiation of anticoagulation. 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 Ultrasound revealed DVT of bilateral lower extremities, and CTA showed pulmonary emboli. Echo was completed which does not demonstrate any heart strain. While he was here, goals of care discussion was had with him and his . Hospice informational was provided. Patient and his would like to speak with oncology, they have an appointment set up already for Saturday before making any further decisions. Patient was transition from Lovenox subcu to oral Eliquis on discharge. Spoke with his pharmacy, and it was covered. He will complete a 7-day loading dose of Eliquis with 10 mg twice daily, and then will be on 5 mg twice daily. He will likely need indefinite anticoagulation due to his high risk of clotting with his underlying malignancy. ALLERGIES Allergies Allergy/AdvReac Type Severity Reaction Status Date / Time No Known Drug Allergies Allergy Verified 07/01/24 18:26 MEDICATIONS Ambulatory Orders Medication Instructions Recorded Confirmed magnesium gluconate 27 mg 27 mg PO BID 02/17/24 07/02/24 magnesium (500 mg) tablet mv-mn-folic 200 mcg-vit K 15 1 cap PO DAILY 02/17/24 07/02/24 mcg-lutein 5 mg-zeaxanthin 1 mg capsule (PreserVision AREDS 2 Plus Multivit) omega-3 fatty acids 1,000 mg 1,000 mg PO QDAY 02/17/24 07/02/24 capsule vit B complex 100 combo no.2 100 1 tab PO DAILY 02/17/24 07/02/24 mg tablet,extended release (B-100 Complex ER) magnesium oxide-magnesium amino 4 cap PO QDAY 03/23/24 07/02/24 acid chelate 300 mg capsule pantoprazole 40 mg tablet,delayed 40 mg PO BID #90 tabs 03/25/24 07/02/24 release (Protonix) folic acid 1 mg tablet 1 mg PO QDAY #90 tabs 05/01/24 07/02/24 lorazepam 0.5 mg tablet 0.5 mg PO ONCE PRN anxiety #7 tabs 05/05/24 07/02/24 capmatinib 150 mg tablet 300 mg (2 x 150 mg) PO BID #120 05/26/24 07/02/24 tabs Permanent Disabled Placard #1 ea 05/27/24 06/24/24 ondansetron 4 mg disintegrating 4 mg PO Q6H PRN nausea and 06/08/24 07/02/24 tablet vomiting #60 tabs fentanyl 75 mcg/hr transdermal 1 patch transdermal Q72H #5 ea 06/19/24 07/02/24 patch nystatin 100,000 unit/mL oral 5 ml PO QID #200 mL 06/19/24 07/02/24 suspension sucralfate 1 gram tablet See Rx Instructions .Route 06/30/24 07/02/24 .COMPLEX #400 tabs mirtazapine 15 mg tablet 15 mg PO QPM 07/02/24 07/02/24 oxycodone 10 mg tablet 10 mg PO Q3H PRN pain 07/02/24 07/02/24 apixaban 5 mg tablet (Eliquis) 5 mg PO BID #60 tabs 07/03/24 apixaban 5 mg tablet (Eliquis) 10 mg (2 x 5 mg) PO BID 5 days #20 07/03/24 tabs PHYSICAL EXAM AT DISCHARGE General Appearance: positive No acute distress, Alert, Lethargic and Other (Cachectic in appearance); negative Anxious Eyes Bilateral: positive Normal inspection, PERRL, EOMI and Conjunctivae nml ENT: positive ENT inspection nml, Pharynx nml and Dry mucous membranes Neck: positive Nml inspection, Thyroid nml and No JVD Respiratory: positive Chest non-tender, No respiratory distress, Rhonchi and Other (diminished breath sounds in RLL) Cardiovascular: positive Regular rate & rhythm, No murmur and No gallop Peripheral Pulses: positive 2+ Abdomen: positive Non-tender; negative Tenderness, Guarding, Rebound, Splenomegaly or Mass Back: positive Nml inspection; negative CVA tenderness (R) or CVA tenderness (L) Skin: positive Color nml, No rash, Warm and Dry Extremities: positive Non-tender, Full ROM, Pedal edema and Calf tenderness Neurologic/Psychiatric: positive Oriented x3 and Mood/affect nml LABS 07/03/24 05:25 07/03/24 05:25 DIAGNOSTIC IMAGING Diagnostic Imaging Results: Final report reviewed FOLLOW UP Follow Up: Follow-up with oncology. Follow-up with primary care provider. Follow-up with palliative care. TIME SPENT Time Spent in Discharge (Minutes): 35 Discharge Plan Discharge Patient Disposition: 06 Home Health Service Condition: Stable Prescriptions: New Eliquis 5 mg Tablet 10 mg PO BID 5 Days Qty: 20 0RF Eliquis 5 mg tablet 5 mg PO BID Qty: 60 2RF Continued capmatinib 150 mg tablet 300 mg PO BID Qty: 120 5RF nystatin 100,000 unit/mL suspension 5 ml PO QID Qty: 200 2RF Rx Instructions: swish and swallow new RX today fentanyl 75 mcg/hr patch 72 hour 1 patch transdermal Q72H Qty: 5 0RF sucralfate 1 gram tablet See Rx Instructions .ROUTE .COMPLEX Qty: 400 6RF Dose Instruction: take 1 tablet by mouth before meals and at bedtime TOTAL 4 TIMES DAILY Rx Instructions: take 1 tablet by mouth before meals and at bedtime TOTAL 4 TIMES DAILY pantoprazole [Protonix] 40 mg tablet,delayed release (DR/EC) 40 mg PO BID Qty: 90 3RF mirtazapine 15 mg tablet 15 mg PO QPM oxycodone 10 mg tablet 10 mg PO Q3H PRN (Reason: pain) folic acid 1 mg tablet 1 mg PO QDAY Qty: 90 1RF magnesium gluconate 27 mg magnesium (500 mg) tablet 27 mg PO BID B-100 Complex 100 mg tablet extended release 1 tab PO DAILY omega-3 fatty acids 1,000 mg capsule 1,000 mg PO QDAY PreserVision AREDS 2 Plus MV 200 mcg-15 mcg- 5 mg-1 mg capsule 1 cap PO DAILY magnesium oxide-Mg AA chelate 300 mg capsule 4 cap PO QDAY lorazepam 0.5 mg tablet 0.5 mg PO ONCE PRN (Reason: anxiety) Qty: 7 0RF Rx Instructions: to use one hour before imaging or procedures for anxiety (DME) [place]ermanent Dis[place] [facility] [place] .ROUTE .MEDSUPPLY Qty: 1 0RF Rx Instructions: As directed ondansetron 4 mg tablet,disintegrating 4 mg PO Q6H PRN (Reason: nausea and vomiting) Qty: 60 3RF Activity Restrictions: Activity as Tolerated Diet: Regular Health Concerns: You came in because you had some swelling in your legs. You are found to have clots in both your legs, as well as a blood clot in your lungs. We started you on injections for this, and I have now switched you to a pill called Eliquis. You will take a higher dose 10 mg twice a day for 5 more days, as a loading dose. After this, you will be on your maintenance dose of 5 mg twice a day indefinitely. With such a large clot in your lungs, we worry about strain on your heart. As such, we got an ultrasound of your heart. We do not see evidence of this at this time. We talked about your goals of care, you mentioned that you wanted a little more information about hospice. We set up a hospice informational for you while you are here. We hope you continue to feel better. Thank you for allowing us to take care of you. Print Language: Kazakh Patient Instructions: Apixaban oral tablets, Embolism Pulmonary Dc Stand Alone Forms: PCP List Follow-up Care: Neil Stearns MD [Primary Care Provider] -"
[2024-07-03] MEDS: APIXABAN 5 MG TABLET PO SCH (11:59)
[2024-07-03] MEDS ORDERED: oxyCODONE 5 MG TABLET PO PRN (12:18)
[2024-07-03 14:50] VITALS: BP 96/62; TEMP 97.9; O2SAT 93
--- NOTE | 2024-07-03 16:53 | Palliative Care ---
CC HPI Chief Complaint Chief Complaint: fatigue, blood clots History Obtained From Records Reviewed: oncology notes; previous notes; labs History obtained from: and patient Exam Limitations: patient very quiet History of Present Illness HPI: This is a frail, 73-year-old elderly, gentleman with Stage IV Lung Cancer with extensive bone and liver mets, with obstructing tumor of RML. I am visiting Branden and , Chantal, inpatient. He is peacefully sleeping in bed. Chantal tells me everything started on Saturday. Branden continued to have increased swelling in both feet. Dr. Olmedo ordered a venous duplex US 06/24/24 and they finally went in 07/01/24 to have it done. US showed "extensive bilateral DVT. On the right, there is DVT which is near occlusive in the popliteal vein and occlusive over a long segment of the deep vein of the thigh (also known as the superficial femoral vein). On the left, there is popliteal vein DVT, and DVT involving veins." Chest XR 07/01/24 showed "left lower lobe subsegmental pulmonary emboli. Moderate right pleural effusion is new. This may be malignant. Right middle lobe collapse with bronchial occlusion again seen. Liver lesions, adrenal nodule, diffuse bone metastases again seen, not well evaluated on this study." He was then admitted from the ED straight to the hospital late Saturday night. He is currently receiving Lovenox injections and being held for monitoring. ECHO was ordered for possible right heart strain. This showed mild concentric LVH with normal systolic function EF 60-65% and mild pulmonary hypertension. He remains weak, fatigued, short of breath, and slightly painful. Rudy believes Branden is eating more and having less pain. States he is now able to eat half a bowl of soup with rice instead of just a couple bites. Chantal states she had to bring his oral cancer medication capmatinib to the hospital to give to him. This is a compound oral chemotherapy medication. She believes this is going to help heal him. Sacrum/tailbone wound is healed according to Chantal. Currently denies pain while lying in bed. Pain continues to be managed with fentanyl patch 100 mcg and oxycodone 10 mg every 3-4 hrs PRN. Chantal states her sister is coming from the [facility] next month and waiting for her work visa, so she can come and help Chantal take care of Branden. Chantal is his primary caregiver. I suggested she hire a formal caregiver, but she said not unless it is covered by Medicare. States she's already spent money to buy things at home to help with function and doesn't want to spend anymore. Chantal tells me about their 2 sons, 1 in his 40's lives in [place], and another son is in [place], [place] with his own children. Chantal states Brandne's brother and sister have been calling him from [place]. She also brings up their son, Flaco, who had committed suicide back in 2005 over a failed relationship with a high school girlfriend. This has been something in their family that continues to haunt them. Normal truly believes Branden is going to be healed by God. She has multiple prayer circles and churches praying for him. She donates money to the synagogue to make sure people are praying for him. She believes he is getting stronger and can "beat the cancer. I'm hoping for another 5 years. I am not ready yet," she states. States she made him promise her "not to give up, like their wedding vows; in sickness and in health." She states "I'm going to quote Joyce here; it's a failed medical system." She blames Branden's cancer getting worse if because he's had to wait so long for everything to get in motion and this is why Branden got so sick in the meantime. Her plan is to take him to [facility] at the end of September. "A holy place where they are having 40-years if shedding pain and suffering." She has been there in the past and wants to go again. She wants Branden to fly there with her and planning for him to travel. Branden wanted to get up and use the restroom. She started to help him and I said we need to call staff to help also. This was a 10 minute ordeal. He was exhausted by the time he got back into bed, and didn't have the strength to arrange himself in bed. He has no strength to be traveling. He states, " I have no strength to do therapy and I get short of breath easily. Normal tells him this will improve due to blood thinner that started. Meds/Allgy Home Medications Ambulatory Orders Medication Instructions Recorded Confirmed magnesium gluconate 27 mg 27 mg PO BID 02/17/24 07/02/24 magnesium (500 mg) tablet mv-mn-folic 200 mcg-vit K 15 1 cap PO DAILY 02/17/24 07/02/24 mcg-lutein 5 mg-zeaxanthin 1 mg capsule (PreserVision AREDS 2 Plus Multivit) omega-3 fatty acids 1,000 mg 1,000 mg PO QDAY 02/17/24 07/02/24 capsule vit B complex 100 combo no.2 100 1 tab PO DAILY 02/17/24 07/02/24 mg tablet,extended release (B-100 Complex ER) magnesium oxide-magnesium amino 4 cap PO QDAY 03/23/24 07/02/24 acid chelate 300 mg capsule pantoprazole 40 mg tablet,delayed 40 mg PO BID #90 tabs 03/25/24 07/02/24 release (Protonix) folic acid 1 mg tablet 1 mg PO QDAY #90 tabs 05/01/24 07/02/24 lorazepam 0.5 mg tablet 0.5 mg PO ONCE PRN anxiety #7 tabs 05/05/24 07/02/24 capmatinib 150 mg tablet 300 mg (2 x 150 mg) PO BID #120 05/26/24 07/02/24 tabs Permanent Disabled Placard #1 ea 05/27/24 06/24/24 ondansetron 4 mg disintegrating 4 mg PO Q6H PRN nausea and 06/08/24 07/02/24 tablet vomiting #60 tabs fentanyl 75 mcg/hr transdermal 1 patch transdermal Q72H #5 ea 06/19/24 07/02/24 patch nystatin 100,000 unit/mL oral 5 ml PO QID #200 mL 06/19/24 07/02/24 suspension sucralfate 1 gram tablet See Rx Instructions .Route 06/30/24 07/02/24 .COMPLEX #400 tabs mirtazapine 15 mg tablet 15 mg PO QPM 07/02/24 07/02/24 oxycodone 10 mg tablet 10 mg PO Q3H PRN pain 07/02/24 07/02/24 apixaban 5 mg tablet (Eliquis) 5 mg PO BID #60 tabs 07/03/24 apixaban 5 mg tablet (Eliquis) 10 mg (2 x 5 mg) PO BID 5 days #20 07/03/24 tabs Allergies Allergies Allergy/AdvReac Type Severity Reaction Status Date / Time No Known Drug Allergies Allergy Verified 07/01/24 18:26 Palliative Care Performance Status Performance status: Uses 4WW for ambulation. Continues to be extremely fatigued, malnourished, and not able to breathe as well now. Pain contributes to his fatigue and depressed mood. States she would like to have a wheelchair and hospital bed for him, but she is unable to pay for these. She is going to ask Dr. Stearns to provide a prescription so she can try to obtain them through Medicare. Palliative Care Discussion: I asked Chantal if she feels Branden has the strength to keep doing what he has been. She states "I hope he can get stronger and travel with me." I did bring up with the [facility] and hospice and she does not want either of those. I asked if she thought he was suffering at all. Chantal could not answer this question directly. We discussed the POLST form and she stated when they talked to the doctor on the video monitor Saturday night, Branden told the doctor he did not want to be resuscitated. I asked if she would honor his wishes if he passed in his sleep and she said "yes" she would. She does not want to go against his wishes. She explained everything to me that has been happening the past couple weeks since April 2024. Timeline might be slightly off, but she has a good memory with the chain of events that have occurred. She wants him to continue to take his oral chemo medication and hoping it works so he can live another 5 years. I did state stage IV cancer is palliative treatment, meaning he will always have to be doing some sort of treatment for the rest of his life while he is alive. This is what she wants him to do for her and seems he will to do so. Impression Impression: This is a 73-year-old elderly, gentleman who has metastatic lung cancer, widely spread metastatic disease, currently on oral cancer medication. Branden is now has bilateral DVTs in each of leg, PE in left lower lobe, and new right sided small pleural effusion. Having more difficulty breathing, but not on O2. Fluid and oral intake is still low. Palliative care will continue to provide weekly support for pain and symptom management, Advance care planning, coordination of care, and anticipatory guidance. Vitals Vital Signs 07/01/24 18:26 07/01/24 21:14 07/01/24 21:15 07/01/24 23:00 07/02/24 00:47 07/02/24 01:39 07/02/24 05:37 07/02/24 08:48 07/02/24 12:48 07/02/24 16:07 07/02/24 19:59 07/03/24 00:27 07/03/24 06:01 07/03/24 07:36 07/03/24 11:50 07/03/24 14:49 07/04/24 14:13 Height 5 ft 10 in 5 ft 10 in 5 ft 10 in Weight 67.132 kg 68 kg 68 kg BMI 21.5 BP 107/78 111/72 106/76 138/85 H 99/61 111/73 91/65 103/69 88/64 L 10 103/60 97/61 99/65 96/62 Respiration 18 16 12 24 20 18 16 16 16 18 16 18 18 16 Pulse 85 87 97 104 H 92 82 91 81 82 84 82 86 89 78 Temp 37 C 36.8 C 36.3 C L 36.6 C 37.1 C 37.1 C 36.9 C 36.6 C 36.9 C 36.5 C 37.2 C 36.9 C 36.6 C Temp Source Temporal Artery Scan Oral Skin Skin Temporal Artery Scan Tem poral Artery Scan Temporal Artery Scan Temporal Artery Scan Temporal Artery Scan Temporal Artery Scan Temporal Artery Scan Temporal Artery Scan Temporal Artery Scan Pulse Oximetry 98 95 94 95 93 95 95 94 93 92 91 L 92 92 93 PFSH Active Problems All Active Problems (Updated 07/04/24 @ 16:53 by MICHAEL Juilan) Edema of both lower extremities (Acute) Non-small cell cancer of right lung (Acute) Pleural effusion, right (Acute) Pulmonary embolism on left (Acute) Acute bilateral deep vein thrombosis (DVT) of popliteal veins (Acute) Encounter for antineoplastic chemotherapy (Acute) Leg swelling (Acute) Dyspnea (Acute) Muscle weakness (generalized) (Acute) Stage II pressure ulcer of buttock (Acute) Oral candidiasis (Acute) Obstructive pneumonia (Acute) Obstructive airway disease (Chronic) Dehydration (Acute) Back pain (Acute) Collapse of right lung (Acute) Non-small cell lung cancer metastatic to liver (Chronic) Spondylosis (Acute) Advance care planning (Acute) Cancer associated pain (Acute) Healthcare maintenance (Acute) 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(Chronic) Anxiety (Acute) Constipation due to opioid therapy (Acute) Caregiver burden (Acute) Counseling regarding advance care planning and goals of care (Acute) Anorexia (Acute) Endobronchial mass (Acute) Helicobacter pylori gastritis (Acute) Epigastric pain (Acute) Allergic arthritis of right knee (Acute) Acute arthritis (Acute) Rotator cuff impingement syndrome (Acute) Diverticulitis, colon (Acute) Thrombocytopenia (Acute) DJD (degenerative joint disease), lumbar (Acute) Mixed hyperlipidemia (Acute) Medical History Medical History (Updated 07/04/24 @ 16:53 by MICHAEL Julian) Gastritis Skin nodule Angular cheilitis Inflamed seborrheic keratosis Onychomycosis Chronic rhinitis Right upper quadrant abdominal pain Male pattern alopecia Exposure to hepatitis B 02/2020, + core antibody and - surface antigen Degenerative joint disease (DJD) of lumbar spine Hyperlipidemia History of diverticulosis Surgical History Surgical History H/O endoscopy History of esophagogastroduodenoscopy (EGD) (~03/25/24) gastritis, no ulcer History of hydrocelectomy History of colonoscopy Family History Family History Mother Diabetes Father CVA (cerebral vascular accident) Brother Diabetes Aunt Breast cancer Son Arthritis Social History Social History Smoking Status: Never smoker If you are a former smoker, when did you quit? (Date/Year): 1999 Number of Years Smoked: 20 How many cigarettes a day do you smoke? (20 cigarettes=1 Pk): 10 Second hand tobacco smoke exposure: No Do you dip or chew tobacco?: No Do you vape?: No Patient requests smoking cessation consult: No Initiate information on smoking cessation: No Living arrangement: At home Marital Status: Living Condition: With spouse/s.o. 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 control work Service: No POLST Patient has POLST: No Review of Systems Constitutional Reports: Fatigue, Changes in appetite or eating habits, Poor appetite and Weight loss; Denies: Fever Cardiovascular Reports: edema, swelling of feet/ankles, shortness of breath with exertion and shortness of breath when lying down Respiratory Reports: Shortness of breath, Pleuritic pain, SOB with exertion and other (bringing up less phelgm); Denies: Wheezing or Chest congestion Gastrointestinal Reports: Poor appetite, Constipation (2 day no BM) and other (anorexia) Musculoskeletal Reports: Back pain, Joint pain, Stiffness, Muscle pain, Muscle aches and Muscle weakness Neurological Reports: General weakness, Weakness in extremities, Abnormal gait and Lack of coordination; Denies: Headache or Numbness in extremities Psychiatric Reports: Difficulty concentrating Endocrine Reports: Fatigue and Cold intolerance Hematologic/Lymphatic Reports: Easy bruising and Blood clots Allergic/Immunologic Denies: Wheezing Exam Constitutional abnormal general appearance (chronically ill), (lethargic) and (frail appearing) Petite, elderly man lying in bed. Sleeping off and on, malaise HENMT Wearing camel colored Carhart stocking hat Eyes Eyes closed due to vision issues Neck/C-Spine visual inspection normal and supple Respiratory breath sounds equal bilaterally (very quiet breath sounds), abnormal respiratory effort (shallow breathing), clear to auscultation bilaterally, no wheezes, no rales and no use of accessory muscles Cardiovascular normal heart rate noted, regular rhythm noted, no murmur and peripheral pulses 2+ throughout 1+ edema BLE and right upper extremity Gastrointestinal abdomen soft to palpation, nontender to palpation and nondistended Decrease BT Extremities upper and lower extremity muscle wasting; needing assist from sitting to standing; amb short distances with walker Neurology Patient with weak voice, withdrawn, appears sedated, able to arouse. Appropriate responses when asked. Using walker for ambulation with help from Chantal and SALES [employer] SERVICE AGENT Psychiatry Depressed, sad affect Skin skin color normal, skin turgor normal and no jaundice Assessment & Plan Assessment & Plan (1) Pulmonary embolism on left: Code(s): I26.99 - Other pulmonary embolism without acute cor pulmonale Plan: New discovery on chest CT. Started on Lovenox injections and hospitals and will go home with apixaban 5 mg twice daily. Continue current plan of care. (2) Acute bilateral deep vein thrombosis (DVT) of popliteal veins: Code(s): I82.433 - Acute embolism and thrombosis of popliteal vein, bilateral Plan: Bilateral DVTs; started on Lovenox injections in hospital. Will probably discharge on apixaban 5 mg twice daily. Continue current plan of care. (3) Counseling regarding advance care planning and goals of care: Code(s): Z71.89 - Other specified counseling Plan: Discussed POLST form with Chantal, but he was not awake. She told me Branden would want to be DNR, but does not feel comfortable filling it in without him. States they told the on-call physician on the teleprompter Saturday night, he would be DNR also. She promises to honor his wishes if he does pass away in his sleep at the hospital. She would not go against his wishes. Need to have continued conversation regarding quality of life with comfort versus extending life in pain and suffering. (4) Non-small cell cancer of right lung: Code(s): C34.91 - Malignant neoplasm of unspecified part of right bronchus or lung Plan: Continues to take oral chemotherapy pill Capmatinib 300 mg BID. He will continue to take this as long as this is the plan and Chantal ask him to. Continue to monitor for side effects. (5) Edema of both lower extremities: Code(s): R60.0 - Localized edema Plan: Not on any diuretics due to low BP and intake overall. More risk for falls. Will hopefully have decreased swelling as the blood clots continue to dissipate. Will monitor and continue current plan of care. Plan Will go home as soon as he is able on oral anticoagulation apixaban 5 mg BID. Will continue to take chemotherapy drug daily per 's request. Still need to discuss further POLST form and what wishes are. This may change things after hospitalization. This might be a new opportunity considering what he has now been through. will not be able to see him if she were to take him to a snf facility, and he doesn't feel he would have the strength to do therapies. Continues to be very weak and frail. Medications: New apixaban 10 mg (2 x 5 mg) PO BID 5 days 20 tabs 0RF Ingris Romero MD I26.99 - Other pulmonary embolism without acute cor pulmonale apixaban 5 mg PO BID 60 tabs 2RF Ingris Romero MD I26.99 - Other pulmonary embolism without acute cor pulmonale Discontinued fluconazole Discontinued Reason: Completed therapy 100 mg PO QDAY 1 tab 0RF prochlorperazine maleate Discontinued Reason: Completed therapy 10 mg PO Q6H PRN 120 tabs 0RF nausea and vomiting fentanyl 100 mcg/hr Discontinued Reason: Completed therapy 1 patch transdermal Q72H 10 ea 0RF C34.90 - Malignant neoplasm of unspecified part of unspecified bronchus or lung, C78.7 - Secondary malignant neoplasm of liver and intrahepatic bile duct, G89.3 - Neoplasm related pain (acute) (chronic) Resumed folic acid 1 mg PO QDAY 90 tabs 1RF Quincy Olmedo MD magnesium gluconate 27 mg PO BID vit B complex 100 combo no.2 ER 1 tab PO DAILY omega-3 fatty acids 1,000 mg PO QDAY magnesium oxide-Mg AA chelate 300 mg 4 caps PO QDAY
== END 2024-07-03 15:15 | disposition home health service (06) | DRG 175 ==
LOC: MS2 18:13 → ED 18:13 → MS2 07-02 00:33
PROVIDERS: ADMIT Hospitalist; ATTEND Hospitalist

== ENCOUNTER 2024-08-01 13:05 | Inpatient (IN) ==
--- NOTE | 2024-08-01 13:11 | ED Physician Documentation ---
History of Present Illness Stated complaint Stated Complaint: GENERAL WEAKNESS Chief complaint Chief Complaint: Neuro Additonal information Additional information: 73-year-old male with history of lung cancer currently undergoing treatment getting oral chemo was recently admitted to the hospital for pneumothorax of right lung caused by thoracentesis done for pleural effusion. Also has a history of pulmonary embolism anticoagulated on Eliquis, stage II pressure ulcer of buttocks, spondylosis, degenerative joint disease presents to emergency department via EMS for concerns of profound weakness. Patient was sitting on the toilet and was unable to get up He ended up bringing himself to the ground tried crawling out of the bathroom and his called 911. He did not have any fall did not hit his head. Patient is very poor historian he speaks minimally due to profound weakness fatigue and lethargy. Patient's says that he just recently had a normal brain MRI as well as normal cytology so she is under the impression that patient no longer has cancer and thinks overall that he is doing better. Patient has not been ambulating not getting out of bed not eating or drinking much. Raman Coma Scale Assess Eye opening: To Voice Verbal response: Oriented Motor response: Obeys Commands Total score: 14 Meds/Allgy Home Medications Ambulatory Orders Medication Instructions Recorded Confirmed mv-mn-folic 200 mcg-vit K 15 1 cap PO DAILY 02/17/24 08/02/24 mcg-lutein 5 mg-zeaxanthin 1 mg capsule (PreserVision AREDS 2 Plus Multivit) pantoprazole 40 mg tablet,delayed 40 mg PO BID #90 tabs 03/25/24 08/02/24 release (Protonix) folic acid 1 mg tablet 1 mg PO QDAY #90 tabs 05/01/24 08/02/24 Permanent Disabled Placard #1 ea 05/27/24 07/23/24 mirtazapine 15 mg tablet 7.5 mg PO QPM 07/02/24 08/02/24 magnesium oxide-magnesium amino 4 cap PO QDAY 07/08/24 08/02/24 acid chelate 300 mg capsule omega-3 fatty acids 1,000 mg 1,000 mg PO QDAY 07/08/24 08/02/24 capsule fentanyl 75 mcg/hr transdermal 1 patch transdermal Q72H Pain #10 07/17/24 08/02/24 patch ea ondansetron 4 mg disintegrating 4 mg PO Q6H PRN nausea and 07/17/24 08/02/24 tablet vomiting #60 tabs oxycodone 10 mg tablet 10 mg PO Q3H PRN pain #240 tabs 07/17/24 08/02/24 apixaban 5 mg tablet (Eliquis) 5 mg PO BID #180 tabs 07/21/24 08/02/24 capmatinib 150 mg tablet 300 mg PO BID 08/01/24 08/02/24 Allergies Allergies Allergy/AdvReac Type Severity Reaction Status Date / Time No Known Drug Allergies Allergy Verified 07/22/24 12:35 PFSH Active Problems All Active Problems (Updated 08/01/24 @ 18:01 by Magdi Johns DNP) Cancer, metastatic to liver (Acute) Cancer, metastatic to bone (Acute) Anasarca (Acute) Anasarca (Acute) Elevated WBC count (Acute) Urinary frequency (Acute) Thrombophilia (Acute) Diplopia (Acute) Pneumothorax on right (Acute) Pain due to neoplasm (Acute) Stage I decubitus ulcer and pressure area (Acute) Edema of both lower extremities (Acute) Non-small cell cancer of right lung (Acute) Pleural effusion, right (Acute) Pulmonary embolism on left (Acute) Acute bilateral deep vein thrombosis (DVT) of popliteal veins (Acute) Encounter for antineoplastic chemotherapy (Acute) Leg swelling (Acute) Dyspnea (Acute) Muscle weakness (generalized) (Acute) Stage II pressure ulcer of buttock (Acute) Obstructive pneumonia (Acute) Obstructive airway disease (Chronic) Dehydration (Acute) Back pain (Acute) Collapse of right lung (Acute) Non-small cell lung cancer metastatic to liver (Chronic) Spondylosis (Acute) Advance care planning (Acute) Cancer associated pain (Acute) Healthcare maintenance (Acute) 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(Chronic) Anxiety (Acute) Constipation due to opioid therapy (Acute) Caregiver burden (Acute) Counseling regarding advance care planning and goals of care (Acute) Anorexia (Acute) Endobronchial mass (Acute) Epigastric pain (Acute) Allergic arthritis of right knee (Acute) Acute arthritis (Acute) Rotator cuff impingement syndrome (Acute) Diverticulitis, colon (Acute) Thrombocytopenia (Acute) DJD (degenerative joint disease), lumbar (Acute) Mixed hyperlipidemia (Acute) Medical History Medical History (Updated 08/01/24 @ 18:01 by Magdi Johns DNP) Oral candidiasis Helicobacter pylori gastritis Gastritis Skin nodule Angular cheilitis Inflamed seborrheic keratosis Onychomycosis Chronic rhinitis Right upper quadrant abdominal pain Male pattern alopecia Exposure to hepatitis B 02/2020, + core antibody and - surface antigen Degenerative joint disease (DJD) of lumbar spine Hyperlipidemia History of diverticulosis Surgical History Surgical History H/O endoscopy History of esophagogastroduodenoscopy (EGD) (~03/25/24) gastritis, no ulcer History of hydrocelectomy History of colonoscopy Family History Family History Mother Diabetes Father CVA (cerebral vascular accident) Brother Diabetes Aunt Breast cancer Son Arthritis Social History Social History Smoking Status: Former smoker If you are a former smoker, when did you quit? (Date/Year): 2004 Number of Years Smoked: 20 How many cigarettes a day do you smoke? (20 cigarettes=1 Pk): 10 Second hand tobacco smoke exposure: Yes Do you dip or chew tobacco?: No Do you vape?: No Patient requests smoking cessation consult: No Initiate information on smoking cessation: No Smoking Status Details: quit 30 years ago Living arrangement: At home Marital Status: Living Condition: With spouse/s.o. 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 Known occupational exposures/hazards (Current/Previous): toxins w/ pest control work Service: No POLST Patient has POLST: Yes POLST Status: DNR (Selected treatments) Exam Exam Vital Signs: Vital Signs x48h Temp Pulse Resp BP Pulse Ox 08/01/24 17:51 82 16 97/72 96 08/01/24 16:51 97 20 103/77 96 08/01/24 16:30 86 16 103/77 96 08/01/24 16:15 73 17 90/64 97 08/01/24 15:30 76 17 106/65 96 08/01/24 15:15 80 19 110/78 96 08/01/24 15:00 81 18 92/69 96 08/01/24 14:45 78 18 92/69 96 08/01/24 14:30 79 20 90/68 96 08/01/24 14:21 80 20 88/67 L 95 08/01/24 14:06 82 20 93/66 96 08/01/24 13:51 78 20 98/72 96 08/01/24 13:36 77 20 94/68 94 08/01/24 13:21 94 20 93/67 97 08/01/24 13:10 36.6 C 86 22 85/65 L 95 Constitutional abnormal general appearance (chronically ill), (lethargic), (appears older than stated age) and (frail appearing), no apparent distress, abnormal body habitus (underweight), no limitations and alert HENMT normocephalic and head/scalp atraumatic Eyes PERRL Chest inspection of chest normal and palpation of chest normal Respiratory breath sounds equal bilaterally and normal respiratory effort Diminished breath sounds bilaterally Cardiovascular heart rate abnormal (tachycardic), no murmur and edema noted (3+ pitting edema throughout body) Distant heart sounds Gastrointestinal abdomen soft to palpation Pitting edema throughout abdomen Genitourinary no CVA tenderness Neurology no movement abnormality noted and coordination normal Profound weakness Skin skin color abnormal (pale) Results Vitals Vitals: Oxygen O2 Source Room air Labs Labs: Microbiology 08/01/24 16:45 Blood Culture - Preliminary Blood - Right Hand NO GROWTH AFTER 2 DAYS 08/01/24 15:05 Blood Culture - Preliminary Blood NO GROWTH AFTER 2 DAYS Laboratory Tests 08/01/24 13:21 WBC 18.9 H RBC 4.05 L Hgb 13.0 L Hct 39.9 L MCV 98.5 H MCH 32.1 H MCHC 32.6 RDW 17.2 H Plt Count 156 MPV 9.7 Neut # (Auto) Not Reportable Lymph # (Auto) Not Reportable [place] # (Auto) Not Reportable Eos # (Auto) Not Reportable Baso # (Auto) Not Reportable Absolute Nucleated RBC Not Reportable Total Counted 100 Band Neuts % (Manual) 7 Abnorm Lymph % (Manual) 0 Nucleated RBC % Not Reportable Neutrophils # (Manual) 14.6 H Lymphocytes # (Manual) 0.6 L Monocytes # (Manual) 1.3 H Eosinophils # (Manual) 2.5 H Basophils # (Manual) 0.0 Differential Comment MANUAL DIFFERENTIAL Manual Slide Review Indicated Platelet Estimate NORMAL (130-450,000) Platelet Morphology NORMAL APPEARANCE RBC Morph Micro Appear NORMAL APPEARANCE Sodium 134 L Potassium 4.0 Chloride 102 Carbon Dioxide 23 Anion Gap 9.0 BUN 21 H Creatinine 1.0 Estimated GFR (MDRD) 73 L Glucose 130 H Calcium 7.4 L Magnesium 2.1 Total Bilirubin 0.9 AST 19 ALT 18 Alkaline Phosphatase 297 H B-Natriuretic Peptide 54 Total Protein 4.6 L Albumin 2.0 L Globulin 2.6 Albumin/Globulin Ratio 0.8 L TSH 13.70 H Free T4 Direct 0.91 Rads (name of study) CT angio with contrast the chest: Relevant Findings:: Final report received and EMP independent interpretation of test Interpretation: Moderate to large right pleural effusion moderate left pleural effusion with near complete atelectasis of bilateral lower lobe and segmental atelectasis in posterior aspect of bilateral upper lobes with right middle lobe. Ill-defined soft tissue density in the right infrahilar region which may represent malignant process given patient's history. Small anterior right pneumothorax. Suggestion of mediastinal or hilar lymphadenopathy cardiomegaly no pericardial effusion. Generalized anasarca. Extensive bony mets CT abdomen pelvis with contrast: Relevant Findings:: Final report received and EMP independent interpretation of test Interpretation: Interval progression of liver metastases as above. Cholelithiasis. No CT evidence of acute cholecystitis. Generalized anasarca. No bowel obstruction or abnormal bowel wall thickening no abscess collection no free fluid or free air. Extensive bony mets significantly progressed since previous study on 07/17. No gross pathologic fracture. Ill-defined heterogeneously enhancing bilateral adrenal nodules more prominent on the right side concerning for adrenal metastases PD Medical Decision Making ED course ED course: 73-year-old male presents to emergency department for concerns of Generalized weakness. Patient has not been eating or drinking at home he is got significant anasarca and was originally telling me that patient no longer has cancer because the brain MRI was normal and the cytology from the thoracentesis did not have any cancerous cells. CT abdomen pelvis with contrast as well as CT chest with contrast is complete for further evaluation and shows significant progression of cancer just since the . He has significant advancement in metastatic cancer to his liver as well as bony mets. I believe that patient is reaching end-of-life when I try to talk with his about my concerns that the cancer is significantly progressing has very poor insight unfortunately she asked questions about why cannot we just start him back on chemo again and why he will need to start him on radiation again. I spoke with nurse practitioner Joyce Gómez who is his palliative care provider and she said this has been similar to previous conversations she is also had with at this point in time they are not willing to transition to hospice would like to work on admitting patient for fluid volume overload and nutrition to see if they can try to get patient back in recovery again. WBCs trending up to 18.9 today 2 sets of blood cultures were collected for further evaluation of this. Patient's having a hard time coping with things for now we will admit the patient for anasarca and tried to help with some fluid volume overload and continue end-of-life discussion with goals of care in mind. Discharge Plan Discharge Patient Disposition: [facility] DC/Xfer Condition: Poor Clinical Impression: Anasarca, Cancer, metastatic to bone, Cancer, metastatic to liver Interventions: ED Admission Assessment Last Done: 08/01/24 19:19
[2024-08-01 13:26] LABS: BASOPHILS % (AUTO) 0.5 %; EOSINOPHILS % (AUTO) 8.4 %; HCT - HEMATOCRIT 39.9 % (42.0-52.0); LYMPHOCYTES % (AUTO) 3.6 %; MEAN CORPUSCULAR HEMOGLOBIN 32.1 pg (27.0-31.0); MEAN CORPUSCULAR HGB CONC 32.6 g/dL (32.0-36.0); MEAN CORPUSCULAR VOLUME 98.5 fL (80.0-94.0); MEAN PLATELET VOLUME 9.7 fL (7.4-11.4); MONOCYTES % (AUTO) 8.1 %; NEUTROPHILS % (AUTO) 78.6 %; PLT - PLATELET COUNT 156 10^3/uL (130-450); RED BLOOD COUNT 4.05 10^6/uL (4.70-6.10); RED CELL DISTRIBUTION WIDTH 17.2 % (12.0-15.0); WHITE BLOOD COUNT 18.9 x10^3/uL (4.8-10.8)
--- OUTSIDE RECORDS SUMMARY | 2024-08-01 13:27 | EXTERNAL MEDICAL SUMMARY RPT | Continuity of Care Document ---
Author Organization [place] Address [address] [place] [id number] Phone Problems date description facility 2024-05-01 08:15 Malignant neoplasm o f unspecified part of right bronchus or lung [facility] 2024-05-01 08:20 Malignant neoplasm o f unspecified part of right bronchus or lung [facility] 2024-05-01 08:20 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[facility] 2024-05-01 08:20 Spondylosis, unspecified [facility] 2024-05-01 08:21 Malignant neoplasm o f unspecified part of unspecified bronchus or lung [facility] 2024-05-01 08:21 Secondary malignant neoplasm of liver and intrahepatic bile duct [facility] 2024-05-01 08:21 Spondylosis, unspecified [facility] 2024-05-01 08:21 Pain in thoracic spine [facility] 2024-05-01 08:22 Malignant neoplasm o f unspecified part of right bronchus or lung [facility] 2024-05-01 08:22 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[facility] 2024-05-01 08:22 Spondylosis, unspecified [facility] 2024-05-01 08:24 Malignant neoplasm o f unspecified part of right bronchus or lung [facility] 2024-05-01 08:26 Malignant neoplasm o f unspecified part of right bronchus or lung [facility] 2024-05-01 08:28 Malignant neoplasm o f unspecified part of right bronchus or lung [facility] 2024-05-01 08:28 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[facility] 2024-05-01 08:28 Spondylosis, unspecified [facility] 2024-05-01 08:29 Malignant neoplasm o f unspecified part of unspecified bronchus or lung [facility] 2024-05-01 08:29 Secondary malignant neoplasm of liver and intrahepatic bile duct [facility] 2024-05-01 08:29 Spondylosis, unspecified [facility] 2024-05-01 08:29 [facility] 08:30 Malignant neoplasm o f unspecified part of right bronchus or lung [facility] 2024-05-01 08:30 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[facility] 2024-05-01 08:30 Spondylosis, unspecified [facility] 2024-05-06 08:39 Malignant neoplasm o f unspecified part of right bronchus or lung [facility] 2024-05-07 00:02 Malignant neoplasm o f unspecified part of right bronchus or lung [facility] 2024-05-07 12:34 Malignant neoplasm of middle lo be, bronchus or lung [facility] 2024-05-07 12:34 Malignant neoplasm o f unspecified part of right bronchus or lung [facility] 2024-05-07 12:34 An[facility] disorder, [facility] 12:34 Neoplasm related pain (acute) ( chronic) [facility] 2024-05-07 12:34 [facility] 12:34 [facility] 12:34 Adverse effect of other opioids , initial encounter [facility] 2024-05-12 08:24 Malignant neoplasm o f unspecified part of right bronchus or lung [facility] 2024-05-12 08:24 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[facility] 2024-05-12 08:24 Spondylosis, unspecified [facility] [employer] 2024-05-12 08:29 Malignant neoplasm o f unspecified part of unspecified bronchus or lung [facility] 2024-05-12 08:29 Secondary malignant neoplasm of liver and intrahepatic bile duct [facility] 2024-05-12 08:29 Spondylosis, unspecified [facility] 2024-05-12 08:29 Pain in thoracic spine [facility] 2024-05-12 10:37 Malignant neoplasm o f unspecified part of right bronchus or lung [employer] 2024-05-13 00:02 Malignant neoplasm o f unspecified part of unspecified bronchus or lung [facility] 2024-05-13 00:02 Malignant neoplasm o f unspecified part of right bronchus or lung [facility] 2024-05-13 00:02 Secondary malignant neoplasm of liver and intrahepatic bile duct [facility] 2024-05-13 00:02 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[facility] 2024-05-13 00:02 Spondylosis, unspecified [facility] 2024-05-13 00:02 Pain in thoracic spine [facility] 2024-05-13 09:42 Malignant neoplasm o f unspecified part of unspecified bronchus or lung [facility] 2024-05-13 09:42 Malignant neoplasm o f unspecified part of right bronchus or lung [facility] 2024-05-13 10:40 Malignant neoplasm o f unspecified part of unspecified bronchus or lung [facility] 2024-05-13 10:40 Malignant neoplasm o f unspecified part of right bronchus or lung [facility] 2024-05-13 13:25 Malignant neoplasm o f unspecified part of unspecified bronchus or lung [facility] 2024-05-13 13:25 Malignant neoplasm o f unspecified part of right bronchus or lung [facility] 2024-05-14 13:42 Malignant neoplasm o f unspecified part of unspecified bronchus or lung [facility] 2024-05-14 13:42 Malignant neoplasm o f unspecified part of right bronchus or lung [facility] 2024-05-18 12:46 Malignant neoplasm o f unspecified part of unspecified bronchus or lung [facility] 2024-05-18 12:46 Malignant neoplasm o f unspecified part of right bronchus or lung [facility] 2024-05-18 15:09 Malignant neoplasm o f unspecified part of unspecified bronchus or lung [facility] 2024-05-18 15:09 Malignant neoplasm o f unspecified part of right bronchus or lung [facility] 2024-05-20 14:30 Malignant neoplasm o f unspecified part of unspecified bronchus or lung [facility] 2024-05-20 14:30 Malignant neoplasm o f unspecified part of right bronchus or lung [facility] 2024-05-20 15:17 Malignant neoplasm o f unspecified part of unspecified bronchus or lung [facility] 2024-05-20 15:17 Malignant neoplasm o f unspecified part of right bronchus or lung [facility] 2024-05-20 15:18 Malignant neoplasm o f unspecified part of unspecified bronchus or lung [facility] 2024-05-20 15:18 Malignant neoplasm o f unspecified part of right bronchus or lung [facility] 2024-05-21 06:30 Malignant neoplasm o f unspecified part of right bronchus or lung [facility] 2024-05-21 08:17 Malignant neoplasm o f unspecified part of right bronchus or lung [facility] 2024-05-21 09:01 Malignant neoplasm o f unspecified part of right bronchus or lung [facility] 2024-05-21 10:26 Malignant neoplasm o f unspecified part of right bronchus or lung [facility] 2024-05-21 10:39 Malignant neoplasm o f unspecified part of right bronchus or lung [facility] 2024-05-21 11:36 Malignant neoplasm o f unspecified part of right bronchus or lung [facility] 2024-05-22 07:50 Malignant neoplasm o f unspecified part of right bronchus or lung [facility] 2024-05-22 08:26 Malignant neoplasm o f unspecified part of right bronchus or lung [facility] 2024-05-26 15:05 Malignant neoplasm o f unspecified part of unspecified bronchus or lung [facility] 2024-05-26 15:05 Malignant neoplasm o f unspecified part of right bronchus or lung [facility] 2024-05-27 13:17 Malignant neoplasm o f unspecified part of unspecified bronchus or lung [facility] 2024-05-27 13:17 Malignant neoplasm o f unspecified part of right bronchus or lung [facility] 2024-05-27 13:17 Secondary malignant neoplasm of liver and intrahepatic bile duct [facility] 2024-05-27 13:17 Dehydration [facility] 2024-05-27 13:17 Neoplasm related pain (acute) ( chronic) [facility] 2024-05-27 13:17 Drug induced constipation [employer] 2024-05-27 13:17 Anorexia [facility] 2024-05-27 13:17 Adverse effect of other opioids , [facility] 13:17 Encounter for palliative care [employer] 2024-05-28 10:10 Malignant neoplasm o f unspecified part of right bronchus or lung [facility] 2024-05-29 08:06 Malignant neoplasm o f unspecified part of right bronchus or lung [facility] 2024-05-29 08:09 Malignant neoplasm o f unspecified part of right bronchus or lung [facility] 2024-05-29 10:40 Malignant neoplasm o f unspecified part of right bronchus or lung [facility] 2024-05-29 10:41 Malignant neoplasm o f unspecified part of right bronchus or lung [facility] 2024-05-30 00:01 Malignant neoplasm o f unspecified part of unspecified bronchus or lung [facility] 2024-05-30 00:01 Secondary malignant neoplasm of liver and intrahepatic bile duct [facility] 2024-05-30 00:01 Counseling, unspecified [facility] 2024-06-01 08:48 Malignant neoplasm o f unspecified part of right bronchus or lung [facility] 2024-06-01 08:48 Neoplasm related pain (acute) ( chronic) [facility] 2024-06-01 08:48 [facility] 08:48 Anorexia [facility] 2024-06-01 08:48 Adverse effect of other opioids , initial encounter [facility] 2024-06-01 08:48 Encounter for palliative care [employer] 2024-06-01 14:09 Malignant neoplasm o f unspecified part of right bronchus or lung [facility] 2024-06-02 09:51 Malignant neoplasm o f unspecified part of right bronchus or lung [facility] 2024-06-02 10:29 Malignant neoplasm o f unspecified part of right bronchus or lung [facility] 2024-06-02 11:40 Malignant neoplasm o f unspecified part of right bronchus or lung [facility] 2024-06-02 12:14 Malignant neoplasm o f unspecified part of unspecified bronchus or lung [facility] 2024-06-02 12:14 Secondary malignant neoplasm of liver and intrahepatic bile duct [facility] 2024-06-02 12:14 Dehydration [facility] 2024-06-05 07:44 Malignant neoplasm o f unspecified part of right bronchus or lung [facility] 2024-06-05 11:37 Malignant neoplasm o f unspecified part of right bronchus or lung [facility] 2024-06-05 12:28 Malignant neoplasm o f unspecified part of right bronchus or lung [facility] 2024-06-11 08:06 Malignant neoplasm o f unspecified part of right bronchus or lung [facility] 2024-06-11 09:13 Malignant neoplasm o f unspecified part of unspecified bronchus or lung [facility] 2024-06-11 10:20 Malignant neoplasm o f unspecified part of unspecified bronchus or lung [facility] 2024-06-11 10:20 Secondary malignant neoplasm of liver and intrahepatic bile duct [facility] 2024-06-11 10:34 Malignant neoplasm o f unspecified part of unspecified bronchus or lung [facility] 2024-06-11 10:35 Malignant neoplasm o f unspecified part of unspecified bronchus or lung [facility] 2024-06-11 11:17 Malignant neoplasm o f unspecified part of unspecified bronchus or lung [facility] 2024-06-11 11:18 Malignant neoplasm o f unspecified part of unspecified bronchus or lung [facility] 2024-06-11 11:18 Malignant neoplasm o f unspecified part of right bronchus or lung [facility] 2024-06-11 14:59 Malignant neoplasm o f unspecified part of unspecified bronchus or lung [facility] 2024-06-11 15:00 Malignant neoplasm o f unspecified part of unspecified bronchus or lung [facility] 2024-06-11 15:22 Malignant neoplasm o f unspecified part of right bronchus or lung [facility] 2024-06-12 00:03 Malignant neoplasm o f unspecified part of unspecified bronchus or lung [facility] 2024-06-12 00:03 Secondary malignant neoplasm of liver and intrahepatic bile duct [facility] 2024-06-15 08:59 Malignant neoplasm o f unspecified part of unspecified bronchus [facility] lung [facility] 2024-06-15 12:38 Malignant neoplasm of middle lo be, bronchus or lung [facility] 2024-06-15 12:38 Malignant neoplasm o f unspecified part of unspecified bronchus or lung [facility] 2024-06-15 12:39 Malignant neoplasm o f unspecified part of unspecified bronchus or lung [facility] 2024-06-15 12:39 Secondary malignant neoplasm of liver and intrahepatic bile duct [facility] 2024-06-15 12:39 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[facility] 2024-06-15 12:39 Atelectasis [facility] 2024-06-15 12:39 Pain in thoracic spine [facility] 2024-06-15 12:39 Encounter for genera l adult medical examination without abnormal findings [facility] 2024-06-15 14:51 Malignant neoplasm of middle lo be, bronchus or lung [facility] 2024-06-15 14:51 Malignant neoplasm o f unspecified part of unspecified bronchus or lung [facility] 2024-06-15 14:51 Secondary malignant neoplasm of liver and intrahepatic bile duct [facility] 2024-06-15 14:51 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[facility] 2024-06-15 14:51 [facility]asis [facility] 14:51 Constipation, unspecified [facility] 2024-06-15 14:51 Pain in thoracic spine [facility] 2024-06-15 14:51 Other chest pain [facility] 14:51 Right upper quadrant pain [facility] 2024-06-15 14:51 Unspecified abdominal pain id [facility] 2024-06-15 14:51 Vomiting, unspecified [facility] 2024-06-15 14:51 Encounter for genera l adult medical examination without abnormal findings [facility] 2024-06-19 08:05 Malignant neoplasm o f unspecified part of right bronchus or lung [facility] 2024-06-19 10:54 Malignant neoplasm o f unspecified part of right bronchus or lung [facility] 2024-06-19 12:27 Malignant neoplasm o f unspecified part of unspecified bronchus or lung [facility] 2024-06-19 12:27 Malignant neoplasm o f unspecified part of right bronchus or lung [facility] 2024-06-19 12:27 Secondary malignant neoplasm of liver and intrahepatic bile duct [facility] 2024-06-19 12:27 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[facility] 2024-06-23 10:39 Malignant neoplasm o f unspecified part of unspecified bronchus or lung [facility] 2024-06-23 10:39 Malignant neoplasm o f unspecified part of right bronchus or lung [facility] 2024-06-23 10:39 Secondary malignant neoplasm of liver and intrahepatic bile duct [facility] 2024-06-23 10:39 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[facility] 2024-06-24 08:25 Malignant neoplasm o f unspecified part of unspecified bronchus or lung [facility] 2024-06-24 08:25 Malignant neoplasm o f unspecified part of right bronchus or lung [facility] 2024-06-24 08:25 Secondary malignant neoplasm of liver and intrahepatic bile duct [facility] 2024-06-24 08:25 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[facility] 2024-06-24 09:18 Malignant neoplasm o f unspecified part of unspecified bronchus or lung [facility] 2024-06-24 09:18 Secondary malignant neoplasm of liver and intrahepatic bile duct [facility] 2024-06-24 09:30 Malignant neoplasm o f unspecified part of unspecified bronchus or lung [facility] 2024-06-24 09:30 Malignant neoplasm o f unspecified part of right bronchus or lung [facility] 2024-06-24 09:30 Secondary malignant neoplasm of liver and intrahepatic bile duct [facility] 2024-06-24 09:30 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[facility] 2024-06-24 09:31 Malignant neoplasm o f unspecified part of unspecified bronchus or lung [facility] 2024-06-24 09:31 Malignant neoplasm o f unspecified part of right bronchus or lung [facility] 2024-06-24 09:31 Secondary malignant neoplasm of liver and intrahepatic bile duct [facility] 2024-06-24 09:31 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[facility] 2024-06-24 10:32 Malignant neoplasm o f unspecified part of unspecified bronchus or lung [facility] 2024-06-24 10:32 Malignant neoplasm o f unspecified part of right bronchus or lung [facility] 2024-06-24 10:32 Secondary malignant neoplasm of liver and intrahepatic bile duct [facility] 2024-06-24 10:32 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[facility] 2024-06-24 11:47 Malignant neoplasm o f unspecified part of unspecified bronchus or lung [facility] 2024-06-24 13:22 Malignant neoplasm o f unspecified part of unspecified bronchus or lung [facility] 2024-06-24 13:22 Malignant neoplasm o f unspecified part of right bronchus or lung [facility] 2024-06-24 13:22 Secondary malignant neoplasm of liver and intrahepatic bile duct [facility] 2024-06-24 13:22 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[facility] 2024-06-24 14:43 Malignant neoplasm o f unspecified part of unspecified bronchus or lung [facility] 2024-06-24 14:43 Malignant neoplasm o f unspecified part of right bronchus or lung [facility] 2024-06-24 14:43 Secondary malignant neoplasm of liver and intrahepatic bile duct [facility] 2024-06-24 14:43 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[facility] 2024-06-25 00:03 Malignant neoplasm o f unspecified part of unspecified bronchus or lung [facility] 2024-06-25 00:03 Secondary malignant neoplasm of liver and intrahepatic bile duct [facility] 2024-06-26 05:49 Other specified soft tissue dis orders [facility] 2024-06-26 09:09 Other specified [facility]26 09:15 Other specified soft tissue dis orders [facility] 2024-06-29 07:40 Malignant neoplasm o f unspecified part of unspecified bronchus or lung [facility] 2024-07-01 16:46 Other specified soft tissue dis orders [facility] 2024-07-01 18:26 Other specified soft tissue dis orders [facility] 2024-07-02 00:01 Other specified soft tissue dis orders [facility] 2024-07-02 00:03 Malignant neoplasm o f unspecified part of unspecified bronchus or lung [facility] 2024-07-02 00:03 Secondary malignant neoplasm of liver and intrahepatic bile duct [facility] 2024-07-02 00:03 Other pulmonary embolism withou t acute cor pulmonale [facility] 2024-07-02 00:03 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, bilateral [facility] 2024-07-02 00:57 Malignant neoplasm o f unspecified part of unspecified bronchus or lung [facility] 2024-07-02 00:57 Secondary malignant neoplasm of liver and intrahepatic bile duct [facility] 2024-07-02 00:57 Other pulmonary embolism withou t acute cor pulmonale [facility] 2024-07-02 00:57 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, [facility] 2024-07-02 01:08 Malignant neoplasm o f unspecified part of unspecified bronchus or lung [facility] 2024-07-02 01:08 Secondary malignant neoplasm of liver and intrahepatic bile duct [facility] 2024-07-02 01:08 Other pulmonary embolism withou t acute cor pulmonale [facility] 2024-07-02 01:08 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, bilateral [facility] 2024-07-02 05:08 Malignant neoplasm o f unspecified part of unspecified bronchus or lung [facility] 2024-07-02 05:08 Secondary malignant neoplasm of liver and intrahepatic bile duct [facility] 2024-07-02 05:08 Other pulmonary embolism withou t acute cor pulmonale [facility] 2024-07-02 05:08 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, bilateral [facility] 2024-07-02 05:08 Constipation, unspecified [facility] 2024-07-02 05:08 Other chest pain [facility] 2024-07-02 05:08 Right upper quadrant pain [facility] 2024-07-02 05:08 Unspecified abdominal pain [facility] 2024-07-02 05:08 [facility]omiting, unspecified [facility] 2024-07-02 09:35 Malignant neoplasm o f unspecified part of unspecified bronchus or lung [facility] 2024-07-02 09:35 Secondary malignant neoplasm of liver and intrahepatic bile duct [facility] 2024-07-02 09:35 Other pulmonary embolism withou t acute cor pulmonale [facility] 2024-07-02 09:35 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, bilateral [facility] 2024-07-02 09:53 Malignant neoplasm o f unspecified part of unspecified bronchus or lung [facility] 2024-07-02 09:53 Secondary malignant neoplasm of liver and intrahepatic bile duct [facility] 2024-07-02 09:53 Other pulmonary embolism withou t acute cor pulmonale [facility] 2024-07-02 09:53 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, [facility] 2024-07-02 11:51 Malignant neoplasm o f unspecified part of unspecified bronchus or lung [facility] 2024-07-02 11:51 Secondary malignant neoplasm of liver and intrahepatic bile duct [facility] 2024-07-02 11:51 Other pulmonary embolism withou t acute cor pulmonale [facility] 2024-07-02 11:51 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, bilateral [facility] 2024-07-02 11:52 Malignant neoplasm o f unspecified part of unspecified bronchus or lung [facility] 2024-07-02 11:52 Secondary malignant neoplasm of liver and intrahepatic bile duct [facility] 2024-07-02 11:52 Other pulmonary embolism withou t acute cor pulmonale [facility] 2024-07-02 11:52 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, bilateral [facility] 2024-07-03 11:44 Candidal stomatitis [facility] 2024-07-03 11:44 Malignant neoplasm o f unspecified part of unspecified bronchus or lung [facility] 2024-07-03 11:44 Secondary malignant neoplasm of liver and intrahepatic bile duct [facility] 2024-07-03 11:44 Neoplasm related pain (acute) ( chronic) [facility] 2024-07-03 11:44 Other pulmonary embolism withou t acute cor pulmonale [facility] 2024-07-03 11:44 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, bilateral [facility] 2024-07-03 11:44 Other diseases of the pleura ([id number]) [facility] 2024-07-03 12:18 Candidal stomatitis aissatou [facility] 2024-07-03 12:18 Malignant neoplasm o f unspecified part of unspecified bronchus or lung [facility] 2024-07-03 12:18 Secondary malignant neoplasm of liver and intrahepatic bile duct [facility] 2024-07-03 12:18 Neoplasm related pain (acute) ( chronic) [facility] 2024-07-03 12:18 Other pulmonary embolism withou t acute cor pulmonale [facility] 2024-07-03 12:18 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, bilateral [facility] 2024-07-03 12:18 Other diseases of the pleura ([id number]) [facility] 2024-07-03 12:20 Candidal stomatitis [facility] 2024-07-03 12:20 Malignant neoplasm o f unspecified part of unspecified bronchus or lung [facility] 2024-07-03 12:20 Secondary malignant neoplasm of liver and intrahepatic bile duct [facility] 2024-07-03 12:20 Neoplasm related pain (acute) ( chronic) [facility] 2024-07-03 12:20 Other pulmonary embolism withou t acute cor pulmonale [facility] 2024-07-03 12:20 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, bilateral [facility] 2024-07-03 12:20 Other diseases of the pleura ([id number]) [facility] 2024-07-03 12:27 Candidal stomatitis aissatou [facility] 2024-07-03 12:27 Malignant neoplasm o f unspecified part of unspecified bronchus or lung [facility] 2024-07-03 12:27 Secondary malignant neoplasm of liver and intrahepatic bile duct [facility] 2024-07-03 12:27 Neoplasm related pain (acute) ( chronic) [facility] 12:27 Other pulmonary embolism withou t acute cor pulmonale [facility] 2024-07-03 12:27 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, bilateral [facility]-03 12:27 Other diseases of the pleura (J 90-J94) [facility] 2024-07-03 15:53 Candidal stomatitis aissatou [facility] 2024-07-03 15:53 Malignant neoplasm o f unspecified part of unspecified bronchus or lung [facility] 2024-07-03 15:53 Secondary malignant neoplasm of liver and intrahepatic bile duct [facility] 2024-07-03 15:53 Neoplasm related pain (acute) ( chronic) [facility] 2024-07-03 15:53 Other pulmonary embolism withou t acute cor pulmonale [facility] 2024-07-03 15:53 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, bilateral [facility] 2024-07-03 15:53 Other diseases of the pleura (J 90-J94) [facility] 2024-07-03 16:42 Candidal stomatitis [facility] 2024-07-03 16:42 Malignant neoplasm o f unspecified part of unspecified bronchus or lung [facility] 2024-07-03 16:42 Secondary malignant neoplasm of liver and intrahepatic bile duct [facility] 2024-07-03 16:42 Neoplasm related pain (acute) ( chronic) [facility] 2024-07-03 16:42 Other pulmonary embolism withou t acute cor pulmonale [facility] 2024-07-03 16:42 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, bilateral [facility] 2024-07-03 16:42 Other diseases of the pleura (J 90-J94) [facility] 2024-07-07 12:33 [facility]07 12:33 Malignant neoplasm o f unspecified part of unspecified bronchus or lung [facility] 2024-07-07 12:33 Malignant neoplasm o f unspecified part of right bronchus or lung [facility] 2024-07-07 12:33 Secondary malignant neoplasm of liver and intrahepatic bile duct [facility] 2024-07-07 12:33 Neoplasm related pain (acute) ( chronic) [facility] 2024-07-07 12:33 Other pulmonary embolism withou t acute cor pulmonale [facility] 2024-07-07 12:33 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 [employer] 2024-07-07 12:33 Vomiting, unspecified [facility] 2024-07-07 12:33 Localized edema [facility] 2024-07-07 12:33 Other specified counseling [facility] [employer] 2024-07-08 13:06 Malignant neoplasm o f unspecified part of unspecified bronchus or lung [facility] 2024-07-08 13:06 Malignant neoplasm o f unspecified part of right bronchus or lung [facility] 2024-07-08 13:06 Secondary malignant neoplasm of liver and intrahepatic bile duct [facility] 2024-07-08 13:06 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[facility] 15:37 Candidal stomatitis [facility] 2024-07-08 15:37 Malignant neoplasm o f unspecified part of unspecified bronchus or lung [facility] 2024-07-08 15:37 Malignant neoplasm o f unspecified part of right bronchus or lung [facility] 2024-07-08 15:37 Secondary malignant neoplasm of liver and intrahepatic bile duct [facility] 2024-07-08 15:37 Neoplasm related pain (acute) ( chronic) [facility] 2024-07-08 15:37 Other pulmonary embolism withou t acute cor pulmonale [facility] 2024-07-08 15:37 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 [employer] 2024-07-08 15:37 Vomiting, unspecified [facility] 2024-07-08 15:37 Localized edema [facility] 2024-07-08 15:37 Other specified counseling [facility] [employer] 2024-07-10 07:03 Candidal stomatitis [facility] 2024-07-10 07:03 Malignant neoplasm o f unspecified part of right bronchus or lung [facility] 2024-07-10 07:03 Neoplasm related pain (acute) ( chronic) [facility] 2024-07-10 07:03 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, bilateral [facility] 2024-07-10 07:03 Pressure ulcer of unspecified s ite, stage 1 [facility] 07:03 Muscle weakness (generalized) [employer] 2024-07-10 07:03 Localized edema [facility] 2024-07-10 07:03 Anorexia [facility] 2024-07-10 07:03 Encounter for palliative care [facility] 2024-07-10 07:03 Other specified counseling [facility] 2024-07-16 12:26 Malignant neoplasm o f unspecified part of unspecified bronchus or lung [facility] 2024-07-16 12:26 Secondary malignant neoplasm of liver and intrahepatic bile duct [facility] 2024-07-16 13:38 Malignant neoplasm o f unspecified part of unspecified bronchus or lung [facility] 2024-07-16 13:38 Malignant neoplasm o f unspecified part of right bronchus or lung [facility] 2024-07-16 13:38 Secondary malignant neoplasm of liver and intrahepatic bile duct [facility] 2024-07-16 13:38 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[facility] 2024-07-16 14:38 Shortness of breath [facility] 2024-07-16 14:39 Shortness of breath [facility] 2024-07-16 14:42 Shortness of breath [facility] 2024-07-17 00:00 Malignant neoplasm o f unspecified part of unspecified bronchus or lung [facility] 2024-07-17 00:00 Secondary malignant neoplasm of liver and intrahepatic bile duct [facility] 2024-07-17 00:00 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[facility] 2024-07-17 00:00 Diplopia [facility] 2024-07-17 00:00 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, bilateral [facility] 2024-07-17 00:00 Atelectasis [facility] 2024-07-17 00:00 Pain in thoracic spine [facility] 2024-07-17 00:00 Shortness of breath [facility] 2024-07-17 00:00 Encounter for genera l adult medical examination without abnormal findings [facility] 2024-07-17 00:00 Encounter for antineoplastic ch emotherapy [facility] 2024-07-17 00:02 Shortness of breath [facility] 2024-07-17 00:04 Malignant neoplasm o f unspecified part of unspecified bronchus or lung [facility] 2024-07-17 00:04 Secondary malignant neoplasm of liver and intrahepatic bile duct [facility] 2024-07-17 00:04 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, bilateral [facility] 2024-07-17 00:04 Encounter for antineoplastic ch emotherapy [facility] 2024-07-17 09:20 Malignant neoplasm o f unspecified part of unspecified bronchus or lung [facility] 2024-07-17 17:05 Malignant neoplasm o f unspecified part of unspecified bronchus or lung [facility] 2024-07-17 17:05 Secondary malignant neoplasm of liver and intrahepatic bile duct [facility] 2024-07-17 17:05 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[facility] 2024-07-17 17:05 Diplopia [facility] 2024-07-17 17:05 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, bilateral [facility] 2024-07-17 17:05 Atelectasis [facility] 2024-07-17 17:05 Pain in thoracic spine [facility] 2024-07-17 17:05 Shortness of breath [facility] 2024-07-17 17:05 Encounter for genera l adult medical examination without abnormal findings [facility] 2024-07-17 17:05 Encounter for antineoplastic ch emotherapy [facility] 2024-07-18 15:03 Malignant neoplasm o f unspecified part of right bronchus or lung [facility] 2024-07-18 15:03 Other pulmonary embolism withou t acute cor pulmonale [facility] 2024-07-18 15:03 Pneumothorax, unspecified [facility] 2024-07-18 15:03 Localized edema [facility] 2024-07-18 15:06 Malignant neoplasm o f unspecified part of right bronchus or lung [facility] 2024-07-18 15:06 Other pulmonary embolism withou t acute cor pulmonale [facility] 2024-07-18 15:06 Pneumothorax, unspecified [facility] 2024-07-18 15:06 Localized edema [facility] 2024-07-18 15:08 Malignant neoplasm o f unspecified part of right bronchus or lung [facility] 2024-07-18 15:08 Other pulmonary embolism withou t acute cor pulmonale [facility] 2024-07-18 15:08 Pneumothorax, unspecified [facility] 2024-07-18 15:08 Localized edema [facility] 2024-07-18 15:26 Malignant neoplasm o f unspecified part of right bronchus or lung [facility] 2024-07-18 15:26 Other pulmonary embolism withou t acute cor pulmonale [facility] 2024-07-18 15:26 Pneumothorax, unspecified [facility] 2024-07-18 15:26 Localized edema [facility] 2024-07-18 15:33 Malignant neoplasm o f unspecified part of right bronchus or lung [facility] 2024-07-18 15:33 Other pulmonary embolism withou t acute cor pulmonale [facility] 2024-07-18 15:33 Pneumothorax, unspecified [facility] 2024-07-18 15:33 Localized edema [facility] 2024-07-18 15:56 Malignant neoplasm o f unspecified part of right bronchus or lung [facility] 2024-07-18 15:56 Other pulmonary embolism withou t acute cor pulmonale [facility] 2024-07-18 15:56 Pneumothorax, unspecified [facility] 2024-07-18 15:56 Localized edema [facility] 2024-07-18 16:15 Malignant neoplasm o f unspecified part of right bronchus or lung [facility] 2024-07-18 16:15 Other pulmonary embolism withou t acute cor pulmonale [facility] 2024-07-18 16:15 Pneumothorax, unspecified [facility] 2024-07-18 16:15 Localized edema [facility] 2024-07-18 17:22 Malignant neoplasm o f unspecified part of right bronchus or lung [facility] 2024-07-18 17:22 Other pulmonary embolism withou t acute cor pulmonale [facility] 2024-07-18 17:22 Pneumothorax, unspecified [facility] 2024-07-18 17:22 Localized edema [facility] 2024-07-18 17:33 Malignant neoplasm o f unspecified part of right bronchus or lung [facility] 2024-07-18 17:33 Other pulmonary embolism withou t acute cor pulmonale [facility] 2024-07-18 17:33 [facility] 17:33 Localized edema [facility] 2024-07-20 05:38 Malignant pleural effusion [facility] 2024-07-20 13:59 Malignant neoplasm of middle lo be, bronchus or lung [facility] 2024-07-21 12:41 Candidal stomatitis [facility] 2024-07-21 12:41 Malignant neoplasm o f unspecified part of unspecified bronchus or lung [facility] 2024-07-21 12:41 Malignant neoplasm o f unspecified part of right bronchus or lung [facility] 2024-07-21 12:41 Secondary malignant neoplasm of liver and intrahepatic bile duct [facility] 2024-07-21 12:41 Neoplasm related pain (acute) ( chronic) [facility] 2024-07-21 12:41 Other pulmonary embolism withou t acute cor pulmonale [facility] 2024-07-21 12:41 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, bilateral [facility] 2024-07-21 12:41 Other diseases of the pleura (J 90-J94) [facility] 2024-07-21 12:41 Shortness of breath [facility] 2024-07-21 12:41 Localized swelling, mass and lump, lower limb, bilateral [facility] 2024-07-21 12:41 Localized edema [facility] 2024-07-21 12:41 Other specified counseling [facility] 2024-07-21 12:55 Candidal stomatitis [facility] 2024-07-21 12:55 Malignant neoplasm o f unspecified part of unspecified bronchus or lung [facility] 2024-07-21 12:55 Malignant neoplasm o f unspecified part of right bronchus or lung [facility] 2024-07-21 12:55 Secondary malignant neoplasm of liver and intrahepatic bile duct [facility] 2024-07-21 12:55 Neoplasm related pain (acute) ( chronic) [facility] 2024-07-21 12:55 Single subsegmental thrombotic pulmonary embolism without acute cor pulmonale [facility] 2024-07-21 12:55 Other pulmonary embolism withou t acute cor pulmonale [facility] 2024-07-21 12:55 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, bilateral [facility] 2024-07-21 12:55 Other diseases of the pleura (J 90-J94) [facility] 2024-07-21 12:55 Shortness of breath [facility]21 12:55 Localized swelling, mass and lump, lower limb, bilateral [facility] 2024-07-21 12:55 Localized edema [facility] 2024-07-21 12:55 Other specified counseling [facility] [employer] 2024-07-22 10:38 Malignant neoplasm o f unspecified part of unspecified bronchus or lung [facility] 2024-07-22 10:38 Malignant neoplasm o f unspecified part of right bronchus or lung [facility] 2024-07-22 10:38 Secondary malignant neoplasm of liver and intrahepatic bile duct [facility] 2024-07-22 10:38 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[facility] 2024-07-22 14:40 Malignant neoplasm o f unspecified part of unspecified bronchus or lung [facility] 2024-07-22 14:40 Secondary malignant neoplasm of liver and intrahepatic bile duct [facility] 2024-07-22 14:40 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[facility] 2024-07-22 15:46 Malignant neoplasm o f unspecified part of unspecified bronchus or lung [facility] 2024-07-22 15:46 Malignant neoplasm o f unspecified part of right bronchus or lung [facility] 2024-07-22 15:46 Secondary malignant neoplasm of liver and intrahepatic bile duct [facility] 2024-07-22 15:46 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[facility] 2024-07-23 00:00 Malignant neoplasm o f unspecified part of unspecified bronchus or lung [facility] 00:00 Malignant neoplasm o f unspecified part of right bronchus or lung [facility]24-[facility] 00:00 Secondary malignant neoplasm of liver and intrahepatic bile duct [facility] 2024-07-23 00:00 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[facility] 2024-07-23 00:00 Other primary thrombophilia [facility] [employer] 2024-07-23 00:00 Diplopia [facility] 2024-07-23 00:00 Other diseases of the pleura (J 90-J94) [facility] 2024-07-23 00:00 Pneumothorax, unspecified [facility] [employer] 2024-07-23 00:00 Pain in thoracic spine [facility] 00:00 Encounter for antineoplastic ch emotherapy [facility] 2024-[facility]23 00:03 Malignant neoplasm o f unspecified part of unspecified bronchus or lung [facility] 2024-07-23 00:03 Secondary malignant neoplasm of liver and intrahepatic bile duct [facility] 2024-07-23 00:03 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[facility] 2024-07-23 05:37 Malignant neoplasm o f unspecified part of unspecified bronchus or lung [facility] 2024-07-23 05:37 Secondary malignant neoplasm of liver and intrahepatic bile duct [facility] 2024-07-23 05:37 Diplopia [facility] 2024-07-23 09:08 Malignant neoplasm o f unspecified part of unspecified bronchus or lung [facility] 2024-07-23 09:08 Malignant neoplasm o f unspecified part of right bronchus or lung [facility] 2024-07-23 09:08 Secondary malignant neoplasm of liver and intrahepatic bile duct [facility] 2024-07-23 09:08 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[facility] 2024-07-23 09:[address] [facility] [employer] 2024-07-23 10:[address] [facility] [employer] 2024-07-24 10:49 Malignant neoplasm o f unspecified part of unspecified bronchus or lung [facility] 2024-07-24 10:49 Secondary malignant neoplasm of liver and intrahepatic bile duct [facility]24-[facility]24 10:49 Diplopia [facility] 2024-07-24 15:38 Malignant neoplasm o f unspecified part of unspecified bronchus or lung [facility] 2024-07-24 15:38 Secondary malignant neoplasm of liver and intrahepatic bile duct [facility] 2024-07-24 15:38 Other diseases of the pleura (J 90-J94) [facility] 2024-07-24 15:38 Pneumothorax, unspecified [facility] 2024-07-24 15:41 Malignant neoplasm o f unspecified part of unspecified bronchus or lung [facility] 2024-[facility]-24 15:41 Secondary malignant neoplasm of liver and intrahepatic bile duct [facility] 2024-07-24 15:41 Other diseases of the pleura (J 90-J94) [facility] 2024-07-24 15:41 Pneumothorax, unspecified [facility] 2024-07-24 15:44 Malignant neoplasm o f unspecified part of unspecified bronchus or lung [facility] 2024-[facility]-24 15:44 Secondary malignant neoplasm of liver and intrahepatic bile duct [facility] 2024-07-24 15:44 Other diseases of the pleura (J 90-J94) [facility] 2024-[facility]-24 15:44 Pneumothorax, unspecified [facility] 2024-07-27 10:46 Candidal stomatitis [facility] 2024-07-27 10:46 Malignant neoplasm o f unspecified part of unspecified bronchus or lung [facility] 2024-07-27 10:46 Malignant neoplasm o f unspecified part of right bronchus or lung [facility] 2024-07-27 10:46 Secondary malignant neoplasm of liver and intrahepatic bile duct [facility] 2024-07-27 10:46 Neoplasm related pain (acute) ( chronic) [facility] 2024-07-27 10:46 Diplopia [facility] 2024-07-27 10:46 Single subsegmental thrombotic pulmonary embolism without acute cor pulmonale [facility] 2024-07-27 10:46 Other pulmonary embolism withou t acute cor pulmonale [facility] 2024-07-27 10:46 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, bilateral [facility] 2024-07-27 10:46 Other diseases of the pleura (J 90-J94) [facility] 2024-07-27 10:46 Malignant pleural effusion [facility] 2024-07-27 10:46 Constipation, unspecified [facility] 2024-07-27 10:46 [facility]ness [facility] 10:46 Other chest pain [facility] 2024-07-27 10:46 Right upper quadrant pain [facility] 2024-07-27 10:46 Unspecified abdominal pain [facility] 2024-07-27 10:46 Vomiting, unspecified [facility] 2024-07-27 10:46 Localized swelling, mass and lump, lower limb, bilateral [facility] 2024-07-27 10:46 Localized edema [facility] 2024-07-27 10:46 Other specified counseling [facility] 2024-07-27 12:29 Malignant neoplasm of middle lo be, bronchus or lung [facility] 2024-07-27 12:29 Malignant neoplasm o f unspecified part of unspecified bronchus or lung [facility] 2024-07-27 12:29 Malignant neoplasm o f unspecified part of right bronchus or lung [facility] 2024-07-27 12:29 Secondary malignant neoplasm of liver and intrahepatic bile duct [facility] 2024-07-27 12:29 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[facility] 2024-07-27 12:29 Other primary thrombophilia Replaced by [facility] 2024-07-27 12:29 Diplopia [facility] 2024-07-27 12:29 Other diseases of the pleura (J 90-J94) [facility] 2024-07-27 12:29 Pneumothorax, unspecified [facility] 2024-07-27 12:29 Pain in thoracic spine [facility] 2024-07-27 12:29 Encounter for antineoplastic ch emotherapy [facility] 2024-07-27 14:31 Malignant pleural effusion [facility] 2024-07-28 00:02 Malignant pleural effusion [facility] 2024-07-28 13:05 Malignant neoplasm o f unspecified part of unspecified bronchus or lung [facility] 2024-07-28 13:05 Other diseases of the pleura (J 90-J94) [facility] 2024-07-28 13:05 Pneumothorax, unspecified [facility] 2024-07-28 16:37 Malignant neoplasm o f unspecified part of unspecified bronchus or lung [facility] 2024-07-28 16:37 Secondary malignant neoplasm of liver and intrahepatic bile duct [facility] 2024-07-28 16:37 Diplopia [facility] 2024-07-29 00:01 Malignant neoplasm o f unspecified part of unspecified bronchus or lung [facility] 2024-07-29 00:01 Secondary malignant neoplasm of liver and intrahepatic bile duct [facility] 2024-07-29 00:01 Diplopia [facility] 2024-07-30 13:28 Malignant neoplasm o f unspecified part of right bronchus or lung [facility] 2024-07-30 13:28 Anemia, unspecified [facility] 2024-07-30 15:38 Frequency of micturition [facility] 2024-07-31 00:04 Malignant neoplasm o f unspecified part of right bronchus or lung [facility] 2024-07-31 00:04 Anemia, unspecified [facility] 2024-07-31 08:55 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, bilateral [facility] 2024-07-31 08:55 Other specified soft tissue dis orders [facility] 2024-07-31 09:21 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, [facility] 2024-07-31 09:21 Other specified soft tissue dis orders [facility] 2024-07-31 09:29 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, bilateral [facility] 2024-07-31 09:29 Other specified soft tissue dis orders [facility] 2024-07-31 15:11 Other diseases of the pleura ([id number]) [employer] Results/Labs test date facility value unit notes Result panel 1 LDH - LACTATE DEHYDROGENASE 2024-04-30 13:45 [employer] 355 iu/l Called supa Worthy RN/CHRISTIANE by Shantal Holm M.T.([facility]) at 1150 06/19/24. @Test reordered(Y/N)? yes As of October 2022 testing method has changed, this may include reference ranges. Result panel 2 NUCLEATED RED BLOOD CELLS AUTO 2024-06-11 10:31 [employer] 0.0 /100wbc (missing) NRBC ABSOLUTE COUNT (AUTO) 2024-06-11 10:31 [employer] 0.00 x10 3/ul (missing) BASOPHILS # (AUTO) 2024-06-11 10:31 [employer] 0.1 10 3/ul (missing) MONOCYTES # (AUTO) 2024-06-11 10:31 [employer] 0.9 10 3/ul (missing) WBC MORPHOLOGY (MULTIPLE) 2024-06-11 10:31 [employer] 1+ REACTIVE LYMPHS (missing) (missing) WBC MORPHOLOGY (MULTIPLE) 2024-06-11 10:31 [employer] 1+ VACUOLATION (missing) (missing) ALBUMIN/GLOBULIN RATIO 2024-06-11 10:31 [employer] 1.0 (missing) (missing) LYMPHOCYTES # (AUTO) 2024-06-11 10:31 [employer] 1.0 10 3/ul (missing) CREATININE 2024-06-11 10:31 [employer] 1.1 mg/dl As of October 2022 testing method has changed, this may include reference ranges. BILIRUBIN,TOTAL 2024-06-11 10:31 [employer] 1.2 mg/dl As of October 2022 testing method has changed, this may include reference ranges. CHLORIDE 2024-06-11 10:31 [employer] 105 mmol/l As of October 2022 testing method has changed, this may include reference ranges. HGB - HEMOGLOBIN 2024-06-11 10:31 [employer] 12.6 g/dl (missing) TRIGLYCERIDES 2024-06-11 10:31 [employer] 137 mg/dl Social History date description facility 2024-05-07 12:34 (unavailable) [facility] 2024-05-27 13:17 (unavailable) [facility] 2024-06-01 08:48 (unavailable) [facility]
[2024-08-01] MEDS: SODIUM CHLORIDE 0.9% 1,000 ML IV STA (13:39)
[2024-08-01 13:43] LABS: MAGNESIUM 2.1 mg/dL (1.7-2.3)
[2024-08-01 13:49] LABS: ALBUMIN/GLOBULIN RATIO 0.8 (1.0-2.2); BILIRUBIN,TOTAL 0.9 mg/dL (0.2-1.0); CALCIUM 7.4 mg/dL (8.5-10.3); TOTAL PROTEIN 4.6 g/dL (6.4-8.9)
[2024-08-01 14:09] LABS: SLIDE REVIEW? Indicated
[2024-08-01 14:10] LABS: ABNORMAL LYMPHS % (MANUAL) 0 %
[2024-08-01 14:37] LABS: BAND NEUTROPHILS % (MANUAL) 7 %; EOSINOPHILS # (MANUAL) 2.5 10^3/uL (0-0.7); LYMPHOCYTES # (MANUAL) 0.6 10^3/uL (1.5-3.5); LYMPHOCYTES % (MANUAL) 3 %; MONOCYTES # (MANUAL) 1.3 10^3/uL (0.0-1.0); NEUTROPHILS # (MANUAL) 14.6 10^3/uL (1.5-6.6)
[2024-08-01 14:40] LABS: DIFFERENTIAL COMMENT MANUAL DIFFERENTIAL; PLATELET ESTIMATE, MANUAL NORMAL (130-450,000) (NORMAL); PLATELET MORPHOLOGY NORMAL APPEARANCE (NORMAL); RBC MORPHOLOGY (MULTIPLE) NORMAL APPEARANCE (NORMAL); THYROID STIMULATING HORMONE 13.7 uIU/mL (0.34-5.60)
[2024-08-01] MEDS: SODIUM CHLORIDE 0.9% 500 ML IV STA (14:48)
[2024-08-01] MEDS ORDERED: iohexoL-300 100 ML VIAL ONE (15:29)
[2024-08-01] MEDS: iohexoL-300 100 ML VIAL IVP ONE (16:13)
--- NOTE | 2024-08-01 18:20 | HISTORY & PHYSICAL EXAMINATION ---
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 Other history of DVT on Eliquis. He had a recent admission after a thoracentesis when he developed a pneumo. He was discharged home with his on 07/18/2024. He comes back today with severe generalized weakness, unable to get up out of the bed. He also has swelling in all of his extremities and on his flank. In the ER, CT chest was performed which showed moderate large right pleural effusion, moderate left pleural effusion with near complete atelectasis of bilateral lower lobe and segmental atelectasis. Also with small anterior right pneumothorax. It also shows soft tissue density in right infrahilar region which is likely malignant. And with bony mets. CT abdomen/pelvis was performed which showed interval progression of liver mets. The largest lesion in his right hepatic dome measures 4 x 4.6 cm. He also has adrenal nodules which are suspicious for cancer and extensive bony mets again identified He has severe swelling all over, and is weak enough that his cannot take care of him at home. Hospitalist was contacted for admission for generalized weakness and anasarca preventing ambulation as well as cancer pain Meds/Allgy Home Medications Ambulatory Orders Medication Instructions Recorded Confirmed mv-mn-folic 200 mcg-vit K 15 1 cap PO DAILY 02/17/24 08/01/24 mcg-lutein 5 mg-zeaxanthin 1 mg capsule (PreserVision AREDS 2 Plus Multivit) vit B complex 100 combo no.2 100 1 tab PO DAILY 02/17/24 08/01/24 mg tablet,extended release (B-100 Complex ER) pantoprazole 40 mg tablet,delayed 40 mg PO BID #90 tabs 03/25/24 08/01/24 release (Protonix) folic acid 1 mg tablet 1 mg PO QDAY #90 tabs 05/01/24 08/01/24 Permanent Disabled Placard #1 ea 05/27/24 07/23/24 mirtazapine 15 mg tablet 15 mg PO QPM 07/02/24 08/01/24 magnesium oxide-magnesium amino 4 cap PO QDAY 07/08/24 08/01/24 acid chelate 300 mg capsule omega-3 fatty acids 1,000 mg 1,000 mg PO QDAY 07/08/24 08/01/24 capsule fentanyl 75 mcg/hr transdermal 1 patch transdermal Q72H Pain #10 07/17/24 08/01/24 patch ea ondansetron 4 mg disintegrating 4 mg PO Q6H PRN nausea and 07/17/24 08/01/24 tablet vomiting #60 tabs oxycodone 10 mg tablet 10 mg PO Q3H PRN pain #240 tabs 07/17/24 08/01/24 apixaban 5 mg tablet (Eliquis) 5 mg PO BID #180 tabs 07/21/24 08/01/24 capmatinib 150 mg tablet 300 mg PO BID 08/01/24 Allergies Allergies Allergy/AdvReac Type Severity Reaction Status Date / Time No Known Drug Allergies Allergy Verified 07/22/24 12:35 PFSH Active Problems All Active Problems (Updated 08/01/24 @ 18:01 by Magdi Johns DNP) Cancer, metastatic to liver (Acute) Cancer, metastatic to bone (Acute) Anasarca (Acute) Anasarca (Acute) Elevated WBC count (Acute) Urinary frequency (Acute) Thrombophilia (Acute) Diplopia (Acute) Pneumothorax on right (Acute) Pain due to neoplasm (Acute) Stage I decubitus ulcer and pressure area (Acute) Edema of both lower extremities (Acute) Non-small cell cancer of right lung (Acute) Pleural effusion, right (Acute) Pulmonary embolism on left (Acute) Acute bilateral deep vein thrombosis (DVT) of popliteal veins (Acute) Encounter for antineoplastic chemotherapy (Acute) Leg swelling (Acute) Dyspnea (Acute) Muscle weakness (generalized) (Acute) Stage II pressure ulcer of buttock (Acute) Obstructive pneumonia (Acute) Obstructive airway disease (Chronic) Dehydration (Acute) Back pain (Acute) Collapse of right lung (Acute) Non-small cell lung cancer metastatic to liver (Chronic) Spondylosis (Acute) Advance care planning (Acute) Cancer associated pain (Acute) Healthcare maintenance (Acute) 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(Chronic) Anxiety (Acute) Constipation due to opioid therapy (Acute) Caregiver burden (Acute) Counseling regarding advance care planning and goals of care (Acute) Anorexia (Acute) Endobronchial mass (Acute) Epigastric pain (Acute) Allergic arthritis of right knee (Acute) Acute arthritis (Acute) Rotator cuff impingement syndrome (Acute) Diverticulitis, colon (Acute) Thrombocytopenia (Acute) DJD (degenerative joint disease), lumbar (Acute) Mixed hyperlipidemia (Acute) Medical History Medical History (Updated 08/01/24 @ 18:01 by Magdi Johns DNP) Oral candidiasis Helicobacter pylori gastritis Gastritis Skin nodule Angular cheilitis Inflamed seborrheic keratosis Onychomycosis Chronic rhinitis Right upper quadrant abdominal pain Male pattern alopecia Exposure to hepatitis B 02/2020, + core antibody and - surface antigen Degenerative joint disease (DJD) of lumbar spine Hyperlipidemia History of diverticulosis Surgical History Surgical History H/O endoscopy History of esophagogastroduodenoscopy (EGD) (~03/25/24) gastritis, no ulcer History of hydrocelectomy History of colonoscopy Family History Family History Mother Diabetes Father CVA (cerebral vascular accident) Brother Diabetes Aunt Breast cancer Son Arthritis Social History Social History Smoking Status: Former smoker If you are a former smoker, when did you quit? (Date/Year): 2004 Number of Years Smoked: 20 How many cigarettes a day do you smoke? (20 cigarettes=1 Pk): 10 Second hand tobacco smoke exposure: Yes Do you dip or chew tobacco?: No Do you vape?: No Patient requests smoking cessation consult: No Initiate information on smoking cessation: No Smoking Status Details: quit 30 years ago Living arrangement: At home Marital Status: Living Condition: With spouse/s.o. 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: Yes Known occupational exposures/hazards (Current/Previous): toxins w/ pest control work Service: No POLST Patient has POLST: Yes POLST Status: DNR (Selected treatments) Review of Systems Status of ROS: 10 or more systems reviewed and unremarkable except as noted in history and below Constitutional Denies: Fever or Chills Cardiovascular Reports: other (Pain in his ribs); Denies: Irregular heart rate, chest pain, palpitations or shortness of breath with exertion Respiratory Denies: Shortness of breath, Cough or Sputum production Gastrointestinal Reports: Abdominal pain Musculoskeletal Reports: Other (Rib pain) Exam Exam Vital Signs: Vital Signs x48h Temp Pulse Resp BP BP Pulse Ox O2 Flow Rate 08/01/24 19:54 36.7 C 14 96/68 95 94 08/01/24 18:21 79 16 90/64 96 08/01/24 17:51 82 16 97/72 96 08/01/24 16:51 97 20 103/77 96 08/01/24 16:30 86 16 103/77 96 08/01/24 16:15 73 17 90/64 97 08/01/24 15:30 76 17 106/65 96 08/01/24 15:15 80 19 110/78 96 08/01/24 15:00 81 18 92/69 96 08/01/24 14:45 78 18 92/69 96 08/01/24 14:30 79 20 90/68 96 08/01/24 14:21 80 20 88/67 L 95 08/01/24 14:06 82 20 93/66 96 08/01/24 13:51 78 20 98/72 96 Constitutional Frail, ill-appearing elderly male in no acute distress [facility] normocephalic and head/scalp atraumatic Cachectic with bitemporal wasting Eyes PERRL Neck/C-Spine visual inspection normal Lymph no lymphadenopathy noted Respiratory breath sounds equal bilaterally Breath sounds diminished Cardiovascular normal heart rate noted and edema noted (Gross edema throughout all extremities and in his trunk) Gastrointestinal tender to palpation (mild) Back/Pelvis spine normal to inspection Neurology GCS 15 Psychiatry oriented x3 Withdrawn, prefers to let his speak for him Skin skin color normal Conclusion/Plan Problem List (1) Anasarca: Plan: Secondary to his extensive cancer Lasix 20 mg IV twice daily Strict intake and output He had an echocardiogram last month that showed EF 60% (2) Cancer, metastatic to liver: Plan: Established with Dr. Olmedo/Jany Bransom On capmatinib for his lung cancer He is already established with palliative care He had a recent informational visit with hospice, but he and his declined at that time CT scans today show grossly worsening metastatic disease, with mets to lymph, bone, adrenals, and liver Given his worsening metastatic disease, is agreeable to another informational visit with hospice (3) Pneumothorax on right: Plan: Small pneumothorax likely residual from thoracentesis at last hospitalization On room air Surgical management is neither necessary nor advisable at this time Plan Admit inpatient med floor DNR/DNI His is his surrogate decision-maker POLST on file showing DNR/DNI with selective treatment Lab Results Lab results reviewed: Yes 08/01/24 13:21 08/01/24 13:21 Diagnostic Imaging Results Diagnostic Imaging Results: positive Final report reviewed Diagnostic Imaging Results Comments: CT chest, abdomen, pelvis as described above Core Measures Anticipated LOS I expect patient to be DC'd or transferred within 96 hours.: Yes DVT/VTE - Prophylaxis VTE/DVT Prophylaxis med ordered at admit?: Yes
--- OUTSIDE RECORDS SUMMARY | 2024-08-01 19:03 | EXTERNAL MEDICAL SUMMARY RPT | Continuity of Care Document ---
Author Organization [place] Address [address] [place] [id number] Phone Problems date description facility 2024-05-01 08:15 [...] neoplasm of liver and intrahepatic bile duct [facility] 2024-05-01 08:29 Spondylosis, unspecified [facility] 2024-05-01 08:29 Pain in thoracic spine [facility] 2024-05-01 08:30 Malignant neoplasm o f unspecified part of right bronchus or lung [facility] 2024-05-01 08:30 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[facility] 2024-05-01 08:30 Spondylosis, unspecified [facility] 2024-05-06 08:39 Malignant neoplasm o f unspecified part of right bronchus or lung [facility] 2024-05-07 00:02 Malignant neoplasm o f unspecified part of right bronchus or lung [facility] 2024-05-07 12:34 Malignant neoplasm of middle lo be, bronchus or lung [facility] 2024-05-07 12:34 Malignant neoplasm o f unspecified part of right bronchus or lung [facility] 2024-05-07 12:34 Anxiety disorder, unspecified [facility] 2024-05-07 12:34 Neoplasm related pain (acute) ( chronic) [facility] 2024-05-07 12:34 [facility] 12:34 Anorexia [facility] 2024-05-07 12:34 Adverse effect of other opioids , initial encounter [facility] 2024-05-12 08:24 Malignant neoplasm o f unspecified part of right bronchus or lung [facility] 2024-05-12 08:24 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[facility] 2024-05-12 08:24 Spondylosis, unspecified [facility] [employer] 2024-05-12 08:29 Malignant neoplasm o f unspecified part of unspecified bronchus or lung [facility] 2024-05-12 08:29 Secondary malignant neoplasm of liver and intrahepatic bile duct [facility] 2024-05-12 08:29 Spondylosis, unspecified [facility] 2024-05-12 08:29 Pain in thoracic spine [facility] 2024-05-12 10:37 Malignant neoplasm o f unspecified part of right bronchus or lung [employer] 2024-05-13 00:02 Malignant neoplasm o f unspecified part of unspecified bronchus or lung [facility] 2024-05-13 00:02 Malignant neoplasm o f unspecified part of right bronchus or lung [facility] 2024-05-13 00:02 Secondary malignant neoplasm of liver and intrahepatic bile duct [facility] 2024-05-13 00:02 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[facility] 2024-05-13 00:02 Spondylosis, unspecified [facility] 2024-05-13 00:02 Pain in thoracic spine [facility] 2024-05-13 09:42 Malignant neoplasm o f [...] 13:17 Neoplasm related pain (acute) ( chronic) [facility] 2024-05-27 13:17 Drug induced constipation [employer] 2024-05-27 13:17 Anorexia [facility] 2024-05-27 13:17 Adverse effect of other opioids , initial encounter [facility] 2024-05-27 13:17 Encounter for palliative care [employer] 2024-05-28 10:10 Malignant neoplasm o f unspecified part of right bronchus or lung [facility] 2024-05-29 08:06 Malignant neoplasm o f unspecified part of right bronchus or lung [employer] [facility] 2024-05-29 08:09 Malignant neoplasm o f unspecified part of right bronchus or lung [employer] [facility] 2024-05-29 10:40 Malignant neoplasm o f unspecified part of right bronchus or lung [employer] [facility] 2024-05-29 10:41 Malignant neoplasm o f unspecified part of right bronchus or lung [employer] [facility] 2024-05-30 00:01 Malignant neoplasm o f unspecified part of unspecified bronchus or lung [employer] [facility] 2024-05-30 00:01 Secondary malignant neoplasm of liver and intrahepatic bile duct [facility] 2024-05-30 00:01 Counseling, unspecified [facility] 2024-06-01 08:48 Malignant neoplasm o f unspecified part of right bronchus or lung [employer] [facility] 2024-06-01 08:48 Neoplasm related pain (acute) ( chronic) [facility] 2024-06-01 08:48 [facility]01 08:48 Anorexia [facility] 2024-06-01 08:48 Adverse effect of other opioids , initial encounter [facility] 2024-06-01 08:48 Encounter for palliative care [employer] 2024-06-01 14:09 Malignant neoplasm o f unspecified part of right bronchus or lung [facility] 2024-06-02 09:51 Malignant neoplasm o f unspecified part of right bronchus or lung [employer] [facility] 2024-06-02 10:29 Malignant neoplasm o f unspecified part of right bronchus or lung [facility] 2024-06-02 11:40 Malignant neoplasm o f unspecified [...] unspecified part of unspecified bronchus or lung [facility] 2024-06-12 00:03 Secondary malignant neoplasm of liver and intrahepatic bile duct [employer] [facility] 2024-06-15 08:59 Malignant neoplasm o f unspecified part of unspecified bronchus or lung [facility] 2024-06-15 12:38 Malignant neoplasm of middle lo be, bronchus or lung [facility] 2024-06-15 12:38 Malignant neoplasm o f unspecified part of unspecified bronchus or lung [employer] [facility] 2024-06-15 12:39 Malignant neoplasm o f unspecified part of unspecified bronchus or lung [employer] 2024-06-15 12:39 Secondary malignant neoplasm of liver and intrahepatic bile duct [facility] 2024-06-15 12:39 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[employer] [facility] 2024-06-15 12:39 Atelectasis [facility] 2024-06-15 12:39 Pain in thoracic spine [facility] 2024-06-15 12:39 Encounter for genera l adult medical examination without abnormal findings [facility] 2024-06-15 14:51 Malignant neoplasm of middle lo be, bronchus or lung [facility] 2024-06-15 14:51 Malignant neoplasm o f unspecified part of unspecified bronchus or lung [employer] [facility] 2024-06-15 14:51 Secondary malignant neoplasm of liver and intrahepatic bile duct [employer] [facility] 2024-06-15 14:51 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[employer] [facility] 2024-06-15 14:51 Atelectasis [facility] 2024-06-15 14:51 Constipation, unspecified [employer] [employer] 2024-06-15 14:51 Pain in thoracic spine [facility] 2024-06-15 14:51 Other chest pain [facility] 2024-06-15 14:51 Right upper quadrant pain [employer] [employer] 2024-06-15 14:51 Unspecified abdominal pain [facility] 2024-06-15 14:51 Vomiting, unspecified [facility] 2024-06-15 14:51 Encounter for genera l adult medical examination without abnormal findings [facility] 2024-06-19 08:05 Malignant neoplasm o f unspecified [...] 2024-06-19 12:27 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[facility] 2024-06-23 10:39 Malignant neoplasm o f unspecified part of unspecified bronchus or lung [facility] 2024-06-23 10:39 Malignant neoplasm o f unspecified part of right bronchus or lung [facility] 2024-06-23 10:39 Secondary malignant neoplasm of liver and intrahepatic bile duct [facility] 2024-06-23 10:39 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[facility] 2024-06-24 08:25 Malignant neoplasm o f unspecified part of unspecified bronchus or lung [facility] 2024-06-24 08:25 Malignant neoplasm o f unspecified part of right bronchus or lung [facility] 2024-06-24 08:25 Secondary malignant neoplasm of liver and intrahepatic bile duct [facility] 2024-06-24 08:25 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[facility] 2024-06-24 09:18 Malignant neoplasm o f [...] 2024-06-24 09:30 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[facility] 2024-06-24 09:31 Malignant neoplasm o f unspecified part of unspecified bronchus or lung [facility] 2024-06-24 09:31 Malignant neoplasm o f unspecified part of right bronchus or lung [facility] 2024-06-24 09:31 Secondary malignant neoplasm of liver and intrahepatic bile duct [facility] 2024-06-24 09:31 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[facility] 2024-06-24 10:32 Malignant neoplasm o f unspecified part of unspecified bronchus or lung [facility] 2024-06-24 10:32 Malignant neoplasm o f unspecified part of right bronchus or lung [facility] 2024-06-24 10:32 Secondary malignant neoplasm of liver and intrahepatic bile duct [facility] 2024-06-24 10:32 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[facility] 2024-06-24 11:47 Malignant neoplasm o f unspecified part of unspecified bronchus or lung [facility] 2024-06-24 13:22 Malignant neoplasm o f unspecified part of unspecified bronchus or lung [facility] 2024-06-24 13:22 Malignant neoplasm o f unspecified part of right bronchus or lung [facility] 2024-06-24 13:22 Secondary malignant neoplasm of liver and intrahepatic bile duct [facility] 2024-06-24 13:22 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[facility] 2024-06-24 14:43 Malignant neoplasm o f unspecified part of unspecified bronchus or lung [facility] 2024-06-24 14:43 Malignant neoplasm o f unspecified part of right bronchus or lung [facility] 2024-06-24 14:43 Secondary malignant neoplasm of liver and intrahepatic bile duct [facility] 2024-06-24 14:43 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[facility] 2024-06-25 00:03 Malignant neoplasm o f unspecified part of unspecified bronchus or lung [facility] 2024-06-25 00:03 Secondary malignant neoplasm of liver and intrahepatic bile duct [facility] 2024-06-26 05:49 Other specified soft tissue dis orders [facility] 2024-06-26 09:09 Other specified soft tissue dis orders [facility] 2024-[facility]-26 09:15 Other specified soft tissue dis orders [facility] 2024-06-29 07:40 Malignant neoplasm o f unspecified part of unspecified bronchus or lung [facility] 2024-07-01 16:46 Other specified soft tissue dis orders [facility] 2024-07-01 18:26 Other specified soft tissue dis orders [facility] 2024-07-02 00:01 Other specified soft tissue dis orders [facility] 2024-07-02 00:03 Malignant neoplasm o f unspecified part of unspecified bronchus or lung [facility] 2024-07-02 00:03 Secondary malignant neoplasm of liver and intrahepatic bile duct [facility] 2024-07-02 00:03 Other pulmonary embolism withou t acute cor pulmonale [facility] 2024-07-02 00:03 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, bilateral [facility] 2024-07-02 00:57 Malignant neoplasm o f unspecified part of unspecified bronchus or lung [facility] 2024-07-02 00:57 Secondary malignant neoplasm of liver and intrahepatic bile duct [facility] 2024-07-02 00:57 Other pulmonary embolism withou t acute cor pulmonale [facility] 2024-07-02 00:57 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, [facility] 2024-07-02 01:08 Malignant neoplasm o f unspecified part of unspecified bronchus or lung [facility] 2024-07-02 01:08 Secondary malignant neoplasm of liver and intrahepatic bile duct [facility] 2024-07-02 01:08 Other pulmonary embolism withou t acute cor pulmonale [facility] 2024-07-02 01:08 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, bilateral [facility] 2024-07-02 05:08 Malignant neoplasm o f unspecified part of unspecified bronchus or lung [facility] 2024-07-02 05:08 Secondary malignant neoplasm of liver and intrahepatic bile duct [facility] 2024-07-02 05:08 Other pulmonary embolism withou t acute cor pulmonale [facility] 2024-07-02 05:08 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, bilateral [facility] 2024-07-02 05:08 Constipation, unspecified [facility] 2024-07-02 05:08 Other chest pain [facility] 2024-07-02 05:08 Right upper quadrant pain [facility] 2024-07-02 05:08 Unspecified abdominal pain [facility] 2024-07-02 05:08 Vomiting, unspecified [facility] 2024-07-02 09:35 Malignant neoplasm o f unspecified part of unspecified bronchus or lung [facility] 2024-07-02 09:35 Secondary malignant neoplasm of liver and intrahepatic bile duct [facility] 2024-07-02 09:35 Other pulmonary embolism withou t acute cor pulmonale [facility] 2024-07-02 09:35 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, bilateral [facility] 2024-07-02 09:53 Malignant neoplasm o f unspecified part of unspecified bronchus or lung [facility] 2024-07-02 09:53 Secondary malignant neoplasm of liver and intrahepatic bile duct [facility] 2024-07-02 09:53 Other pulmonary embolism withou t acute cor pulmonale [facility] 2024-07-02 09:53 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, [place] [facility] 2024-07-02 11:51 Malignant neoplasm o f unspecified part of unspecified bronchus or lung [facility] 2024-07-02 11:51 Secondary malignant neoplasm of liver and intrahepatic bile duct [facility] 2024-07-02 11:51 Other pulmonary embolism withou t acute cor pulmonale [facility] 2024-07-02 11:51 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, bilateral [facility] 2024-07-02 11:52 Malignant neoplasm o f unspecified part of unspecified bronchus or lung [facility] 2024-07-02 11:52 Secondary malignant neoplasm of liver and intrahepatic bile duct [facility] 2024-07-02 11:52 Other pulmonary embolism withou t acute cor pulmonale [facility] 2024-07-02 11:52 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, bilateral [facility] 2024-07-03 11:44 Candidal stomatitis aissatou Lopez [facility] 2024-07-03 11:44 Malignant neoplasm o f unspecified part of unspecified bronchus or lung [facility] 2024-07-03 11:44 Secondary malignant neoplasm of liver and intrahepatic bile duct [facility] 2024-07-03 11:44 Neoplasm related pain (acute) ( chronic) [facility] 2024-07-03 11:44 Other pulmonary embolism withou t acute cor pulmonale [facility] 2024-07-03 11:44 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, bilateral [facility] 2024-07-03 11:44 Other diseases of the pleura (J [id number]) [facility] 2024-07-03 12:18 Candidal stomatitis aissatou [facility] 2024-07-03 12:18 Malignant neoplasm o f unspecified part of unspecified bronchus or lung [facility] 2024-07-03 12:18 Secondary malignant neoplasm of liver and intrahepatic bile duct [facility] 2024-07-03 12:18 Neoplasm related pain (acute) ( chronic) [facility] 2024-07-03 12:18 Other pulmonary embolism withou t acute cor pulmonale [facility] 2024-07-03 12:18 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, bilateral [facility] 2024-07-03 12:18 Other diseases of the pleura (J [id number]) [facility] 2024-07-03 12:20 Candidal stomatitis [facility] 2024-07-03 12:20 Malignant neoplasm o f unspecified part of unspecified bronchus or lung [facility] 2024-07-03 12:20 Secondary malignant neoplasm of liver and intrahepatic bile duct [facility] 2024-07-03 12:20 Neoplasm related pain (acute) ( chronic) [facility] 2024-07-03 12:20 Other pulmonary embolism withou t acute cor pulmonale [facility] 2024-07-03 12:20 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, bilateral [facility] 2024-07-03 12:20 Other diseases of the pleura (J [id number]) [facility] 2024-07-03 12:27 Candidal stomatitis aissatou Lopez [facility] 2024-07-03 12:27 Malignant neoplasm o f unspecified part of unspecified bronchus or lung [facility] 2024-07-03 12:27 Secondary malignant neoplasm of liver and intrahepatic bile duct [facility] 2024-07-03 12:27 Neoplasm related pain (acute) ( chronic) [facility] 2024-07-03 12:27 Other pulmonary embolism withou t acute cor pulmonale [facility] 2024-07-03 12:27 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, bilateral [facility] 2024-07-03 12:27 Other diseases of the pleura (J [id number]) [facility] 2024-07-03 15:53 Candidal stomatitis aissatou [facility] 2024-07-03 15:53 Malignant neoplasm o f unspecified part of unspecified bronchus or lung [facility] 2024-07-03 15:53 Secondary malignant neoplasm of liver and intrahepatic bile duct [facility] 2024-07-03 15:53 Neoplasm related pain (acute) ( chronic) [facility] 2024-07-03 15:53 Other pulmonary embolism withou t acute cor pulmonale [facility] 2024-07-03 15:53 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, bilateral [facility] 2024-07-03 15:53 Other diseases of the pleura (J [id number]) [facility] 2024-07-03 16:42 Candidal stomatitis [facility] 2024-07-03 16:42 Malignant neoplasm o f unspecified part of unspecified bronchus or lung [facility] 2024-07-03 16:42 Secondary malignant neoplasm of liver and intrahepatic bile duct [facility] 2024-07-03 16:42 Neoplasm related pain (acute) ( chronic) [facility] 2024-07-03 16:42 Other pulmonary embolism withou t acute cor pulmonale [facility] 2024-07-03 16:42 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, bilateral [facility] 2024-07-03 16:42 Other diseases of the pleura (J [id number]) [facility] 2024-07-07 12:33 [facility]24-07-07 12:33 Malignant neoplasm o f unspecified part of unspecified bronchus or lung [facility] 2024-07-07 12:33 Malignant neoplasm o f unspecified part of right bronchus or lung [facility] 2024-07-07 12:33 Secondary malignant neoplasm of liver and intrahepatic bile duct [facility] 2024-07-07 12:33 Neoplasm related pain (acute) ( chronic) [facility] 2024-07-07 12:33 Other pulmonary embolism withou t acute cor pulmonale [facility] 2024-07-07 12:33 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, bilateral [facility] 2024-07-07 12:33 Other diseases of the pleura (J [id number]) [facility] 2024-07-07 12:33 Constipation, unspecified [facility] Hospital[facility] 2024-07-07 12:33 Other chest pain [facility] 2024-07-07 12:33 Right upper quadrant pain [facility] 2024-07-07 12:33 Unspecified abdominal pain [facility] [employer] 2024-07-07 12:33 Vomiting, unspecified [facility] 2024-07-07 12:33 Localized edema [facility] 2024-07-07 12:33 Other specified counseling [employer] [facility] [employer] 2024-07-08 13:06 Malignant neoplasm o f unspecified part of unspecified bronchus or lung [facility] 2024-07-08 13:06 Malignant neoplasm o f unspecified part of right bronchus or lung [facility] 2024-07-08 13:06 Secondary malignant neoplasm of liver and intrahepatic bile duct [facility] 2024-07-08 13:06 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[facility] 2024-07-08 15:37 Candidal stomatitis [facility] 2024-07-08 15:37 Malignant neoplasm o f unspecified part of unspecified bronchus or lung [facility] 2024-07-08 15:37 Malignant neoplasm o f unspecified part of right bronchus or lung [facility] 2024-07-08 15:37 Secondary malignant neoplasm of liver and intrahepatic bile duct [facility] 2024-07-08 15:37 Neoplasm related pain (acute) ( chronic) [facility] 2024-07-08 15:37 Other pulmonary embolism withou t acute cor pulmonale [facility] 2024-07-08 15:37 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, bilateral [facility] 2024-07-08 15:37 Other diseases of the pleura (J 90-J94) [facility] 2024-07-08 15:37 Constipation, unspecified [facility] 2024-07-08 15:37 Other chest pain [facility] 2024-07-08 15:37 Right upper quadrant pain [facility] 2024-07-08 15:37 Unspecified abdominal pain [facility] [employer] 2024-07-08 15:37 Vomiting, unspecified [facility] 2024-07-08 15:37 Localized edema [facility] 2024-07-08 15:37 Other specified counseling [facility] [employer] 2024-07-10 07:03 Candidal stomatitis [facility] 2024-07-10 07:03 Malignant neoplasm o f unspecified part of right bronchus or lung [facility] 2024-07-10 07:03 Neoplasm related pain (acute) ( chronic) [facility]10 07:03 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, bilateral [facility] 2024-07-10 07:03 Pressure ulcer of unspecified s ite, stage 1 [facility] 2024-07-10 07:03 Muscle weakness (generalized) [employer] 2024-07-10 07:03 Localized edema [facility] 2024-07-10 07:03 Anorexia [facility] 2024-07-10 07:03 Encounter for palliative care [facility] 2024-07-10 07:03 Other specified counseling [facility] 2024-07-16 12:26 Malignant neoplasm o f unspecified part of unspecified bronchus or lung [facility] 2024-07-16 12:26 Secondary malignant neoplasm of liver and intrahepatic bile duct [facility] 2024-07-16 13:38 Malignant neoplasm o f unspecified part of unspecified bronchus or lung [facility] 2024-07-16 13:38 Malignant neoplasm o f unspecified part of right bronchus or lung [facility] 2024-07-16 13:38 Secondary malignant neoplasm of liver and intrahepatic bile duct [facility] 2024-07-16 13:38 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[facility] 2024-07-16 14:38 Shortness of breath [facility] 2024-07-16 14:39 Shortness of breath [facility] 2024-07-16 14:42 Shortness of breath [facility] 2024-07-17 00:00 Malignant neoplasm o f unspecified part of unspecified bronchus or lung [facility] 2024-07-17 00:00 Secondary malignant neoplasm of liver and intrahepatic bile duct [facility] 2024-07-17 00:00 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[facility] 2024-07-17 00:00 Diplopia [facility] 2024-07-17 00:00 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, bilateral [facility] 2024-07-17 00:00 Atelectasis [facility] 2024-07-17 00:00 Pain in thoracic spine [facility] 2024-07-17 00:00 Shortness of breath [facility] 2024-07-17 00:00 Encounter for genera l adult medical examination without abnormal findings [facility] 2024-07-17 00:00 Encounter for antineoplastic ch emotherapy [facility] 2024-07-17 00:02 Shortness of breath [facility] 2024-07-17 00:04 Malignant neoplasm o f unspecified part of unspecified bronchus or lung [facility] 2024-07-17 00:04 Secondary malignant neoplasm of liver and intrahepatic bile duct [facility] 2024-07-17 00:04 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, bilateral [facility] 2024-07-17 00:04 Encounter for antineoplastic ch emotherapy [facility] 2024-07-17 09:20 Malignant neoplasm o f unspecified part of unspecified bronchus or lung [facility] 2024-07-17 17:05 Malignant neoplasm o f unspecified part of unspecified bronchus or lung [facility] 2024-07-17 17:05 Secondary malignant neoplasm of liver and intrahepatic bile duct [facility] 2024-07-17 17:05 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[facility] 2024-07-17 17:05 Diplopia [facility] 2024-07-17 17:05 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, bilateral [facility] 2024-07-17 17:05 Atelectasis [facility] 2024-07-17 17:05 Pain in thoracic spine [facility] 2024-07-17 17:05 Shortness of breath [facility] 2024-07-17 17:05 Encounter for genera l adult medical examination without abnormal findings [facility] 2024-07-17 17:05 Encounter for antineoplastic ch emotherapy [facility] 2024-07-18 15:03 Malignant neoplasm o f unspecified part of right bronchus or lung [facility] 2024-07-18 15:03 Other pulmonary embolism withou t acute cor pulmonale [facility] 2024-07-18 15:03 Pneumothorax, unspecified [facility] 2024-07-18 15:03 Localized edema [facility] 2024-07-18 15:06 Malignant neoplasm o f unspecified part of right bronchus or lung [facility] 2024-07-18 15:06 Other pulmonary embolism withou t acute cor pulmonale [facility] 2024-07-18 15:06 Pneumothorax, unspecified [facility] 2024-07-18 15:06 Localized edema [facility] 2024-07-18 15:08 Malignant neoplasm o f unspecified part of right bronchus or lung [employer] 2024-07-18 15:08 Other pulmonary embolism withou t [...] embolism withou t acute cor pulmonale [facility] 2024-07-18 15:33 Pneumothorax, unspecified [facility] 2024-07-18 15:33 Localized edema [facility] 2024-07-18 15:56 Malignant neoplasm o f unspecified part of right bronchus or lung [facility] 2024-07-18 15:56 Other pulmonary embolism withou t acute cor pulmonale [facility] 2024-07-18 15:56 Pneumothorax, unspecified [facility] 2024-07-18 15:56 Localized edema [facility] 2024-07-18 16:15 Malignant neoplasm o f unspecified part of right bronchus or lung [facility] 2024-07-18 16:15 Other pulmonary embolism withou t acute cor pulmonale [facility] 2024-07-18 16:15 Pneumothorax, unspecified [facility] 2024-07-18 16:15 Localized edema [facility] 2024-07-18 17:22 Malignant neoplasm o f unspecified part of right bronchus or lung [facility] 2024-07-18 17:22 Other pulmonary embolism withou t acute cor pulmonale [facility] 2024-07-18 17:22 Pneumothorax, unspecified [facility] 2024-07-18 17:22 Localized edema [facility] 2024-07-18 17:33 Malignant neoplasm o f unspecified part of right bronchus or lung [facility] 2024-07-18 17:33 Other pulmonary embolism withou t acute cor pulmonale [facility] 2024-07-18 17:33 [facility]orax, [facility] 17:33 Localized edema [facility] 2024-07-20 05:38 Malignant pleural effusion [facility] 2024-07-20 13:59 Malignant neoplasm of middle lo be, bronchus or lung [facility] 2024-07-21 12:41 Candidal stomatitis [facility] 2024-07-21 12:41 Malignant neoplasm o f unspecified part of unspecified bronchus or lung [facility] 2024-07-21 12:41 Malignant neoplasm o f unspecified part of right bronchus or lung [facility] 2024-07-21 12:41 Secondary malignant neoplasm of liver and intrahepatic bile duct [facility] 2024-07-21 12:41 Neoplasm related pain (acute) ( chronic) [facility] 2024-07-21 12:41 Other pulmonary embolism withou t acute cor pulmonale [facility] 2024-07-21 12:41 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, bilateral [facility] 2024-07-21 12:41 Other diseases of the pleura (J 90-J94) [facility] 2024-07-21 12:41 Shortness of breath [facility] 2024-07-21 12:41 Localized swelling, mass and lump, lower limb, bilateral [facility] 2024-07-21 12:41 Localized edema [facility] 2024-07-21 12:41 Other specified counseling [facility] 2024-07-21 12:55 Candidal stomatitis [facility] 2024-07-21 12:55 Malignant neoplasm o f unspecified part of unspecified bronchus or lung [facility] 2024-07-21 12:55 Malignant neoplasm o f unspecified part of right bronchus or lung [facility] 2024-07-21 12:55 Secondary malignant neoplasm of liver and intrahepatic bile duct [facility] 2024-07-21 12:55 Neoplasm related pain (acute) ( chronic) [facility] 2024-07-21 12:55 Single subsegmental thrombotic pulmonary embolism without acute cor pulmonale [facility] 2024-07-21 12:55 Other pulmonary embolism withou t acute cor pulmonale [facility] 2024-07-21 12:55 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, bilateral [facility] 2024-07-21 12:55 Other diseases of the pleura (J 90-J94) [facility] 2024-07-21 12:55 Shortness of breath [facility] 2024-07-21 12:55 Localized swelling, mass and lump, lower limb, bilateral [facility] 2024-07-21 12:55 Localized edema [facility] 2024-07-21 12:55 Other specified counseling [facility] [employer] 2024-07-22 10:38 Malignant neoplasm o f unspecified part of unspecified bronchus or lung [facility] 2024-07-22 10:38 Malignant neoplasm o f unspecified part of right bronchus or lung [facility] 2024-07-22 10:38 Secondary malignant neoplasm of liver and intrahepatic bile duct [facility] 2024-07-22 10:38 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[facility] 2024-07-22 14:40 Malignant neoplasm o f unspecified part of unspecified bronchus or lung [facility] 2024-07-22 14:40 Secondary malignant neoplasm of liver and intrahepatic bile duct [facility] 2024-07-22 14:40 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[employer] [facility] 2024-07-22 15:46 Malignant neoplasm o f unspecified part of unspecified bronchus or lung [facility] 2024-07-22 15:46 Malignant neoplasm o f unspecified part of right bronchus or lung [facility] 2024-07-22 15:46 Secondary malignant neoplasm of liver and intrahepatic bile duct [employer] [facility] 2024-07-22 15:46 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[employer] [facility] 2024-07-23 00:00 Malignant neoplasm o f unspecified part of unspecified bronchus or lung [facility] 2024-07-23 00:00 Malignant neoplasm o f unspecified part of right bronchus or lung [facility] 2024-07-23 00:00 Secondary malignant neoplasm of liver and intrahepatic bile duct [facility] 2024-07-23 00:00 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[facility] 2024-07-23 00:00 Other primary thrombophilia [facility] [employer] 2024-07-23 00:00 Diplopia [facility] 2024-07-23 00:00 Other diseases of the pleura (J 90-J94) [facility] 2024-07-23 00:00 Pneumothorax, unspecified [facility] [employer] 2024-07-23 00:00 Pain in thoracic spine [facility] 2024-07-23 00:00 Encounter for antineoplastic ch emotherapy [facility] 2024-07-23 00:03 Malignant neoplasm o f unspecified part of unspecified bronchus or lung [facility] 2024-07-23 00:03 Secondary malignant neoplasm of liver and intrahepatic bile duct [facility] 2024-07-23 00:03 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[facility] 2024-07-23 05:37 Malignant neoplasm o f unspecified part of unspecified bronchus or lung [facility] 2024-07-23 05:37 Secondary malignant neoplasm of liver and intrahepatic bile duct [facility] 2024-07-23 05:37 Diplopia [facility] 2024-07-23 09:08 Malignant neoplasm o f unspecified part of unspecified bronchus or lung [facility] 2024-07-23 09:08 Malignant neoplasm o f unspecified part of right bronchus or lung [facility] 2024-07-23 09:08 Secondary malignant neoplasm of liver and intrahepatic bile duct [facility] 2024-07-23 09:08 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[facility] 2024-07-23 09:32 Malignant pleural effusion [facility] [employer] 2024-07-23 10:01 Malignant pleural effusion [facility] [employer] 2024-07-24 10:49 Malignant neoplasm o f unspecified part of unspecified bronchus or lung [facility] 2024-07-24 10:49 Secondary malignant neoplasm of liver and intrahepatic bile duct [facility] 2024-07-24 10:49 Diplopia [facility] 2024-07-24 15:38 Malignant neoplasm o f unspecified part of unspecified bronchus or lung [facility] 2024-07-24 15:38 Secondary malignant neoplasm of liver and intrahepatic bile duct [facility] 2024-07-24 15:38 Other diseases of the pleura (J 90-J94) [facility] 2024-07-24 15:38 Pneumothorax, unspecified idb [facility] 2024-07-24 15:41 Malignant neoplasm o f unspecified part of unspecified bronchus or lung [facility] 2024-07-24 15:41 Secondary malignant neoplasm of liver and intrahepatic bile duct [facility] 2024-07-24 15:41 Other diseases of the pleura (J 90-J94) [facility] 2024-07-24 15:41 Pneumothorax, unspecified [facility] 2024-07-24 15:44 Malignant neoplasm o f unspecified part of unspecified bronchus or lung [facility] 2024-07-24 15:44 Secondary malignant neoplasm of liver and intrahepatic bile duct [facility] 2024-07-24 15:44 Other diseases of the pleura (J 90-J94) [facility] 2024-07-24 15:44 Pneumothorax, unspecified [facility] 2024-07-27 10:46 Candidal stomatitis [facility] 2024-07-27 10:46 Malignant neoplasm o f unspecified part of unspecified bronchus or lung [facility] 2024-07-27 10:46 Malignant neoplasm o f unspecified part of right bronchus or lung [facility] 2024-07-27 10:46 Secondary malignant neoplasm of liver and intrahepatic bile duct [facility] 2024-07-27 10:46 Neoplasm related pain (acute) ( chronic) [facility] 2024-07-27 10:46 Diplopia [facility] 2024-07-27 10:46 Single subsegmental thrombotic pulmonary embolism without acute cor pulmonale [facility] [employer] 2024-07-27 10:46 Other pulmonary embolism withou t acute cor pulmonale [facility] 2024-07-27 10:46 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, bilateral [facility] 2024-07-27 10:46 Other diseases of the pleura (J 90-J94) [facility] 2024-07-27 10:46 Malignant pleural effusion [facility] 2024-07-27 10:46 Constipation, unspecified [facility] 2024-07-27 10:46 [facility]27 10:46 Other chest pain [facility] 2024-07-27 10:46 Right upper quadrant pain [facility] 2024-07-27 10:46 Unspecified abdominal pain [facility] 2024-07-27 10:46 Vomiting, unspecified [facility] 2024-07-27 10:46 Localized swelling, mass and lump, lower limb, bilateral [facility] 2024-07-27 10:46 Localized edema [facility] 2024-07-27 10:46 Other specified counseling [facility] 2024-07-27 12:29 Malignant neoplasm of middle lo be, bronchus or lung [facility] 2024-07-27 12:29 Malignant neoplasm o f unspecified part of unspecified bronchus or lung [facility] 2024-07-27 12:29 Malignant neoplasm o f unspecified part of right bronchus or lung [facility] 2024-07-27 12:29 Secondary malignant neoplasm of liver and intrahepatic bile duct [facility] 2024-07-27 12:29 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[facility] 2024-07-27 12:29 Other primary thrombophilia [facility] 2024-07-27 12:29 Diplopia [facility] 2024-07-27 12:29 Other diseases of the pleura (J 90-J94) [facility] 2024-07-27 12:29 Pneumothorax, unspecified [facility] 2024-07-27 12:29 Pain in thoracic spine [facility] 2024-07-27 12:29 Encounter for antineoplastic ch emotherapy [facility] 2024-07-27 14:31 Malignant pleural effusion [facility] 2024-07-28 00:02 Malignant pleural effusion [facility] 2024-07-28 13:05 Malignant neoplasm o f unspecified part of unspecified bronchus or lung [facility] 2024-07-28 13:05 Other diseases of the pleura (J 90-J94) [facility] 2024-07-28 13:05 Pneumothorax, unspecified [facility] 2024-07-28 16:37 Malignant neoplasm o f unspecified part of unspecified bronchus or lung [facility] 2024-07-28 16:37 Secondary malignant neoplasm of liver and intrahepatic bile duct [facility] 2024-07-28 16:37 Diplopia [facility] 2024-07-29 00:01 Malignant neoplasm o f unspecified part of unspecified bronchus or lung [facility] 2024-07-29 00:01 Secondary malignant neoplasm of liver and intrahepatic bile duct [facility] 2024-07-29 00:01 Diplopia [facility] 2024-07-30 13:28 Malignant neoplasm o f unspecified part of right bronchus or lung [facility] 2024-07-30 13:28 Anemia, unspecified [facility] 2024-07-30 15:38 Frequency of micturition [facility] 2024-07-31 00:04 Malignant neoplasm o f unspecified part of right bronchus or lung [facility] 2024-07-31 00:04 Anemia, unspecified [facility] 2024-07-31 08:55 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, bilateral [facility] 2024-07-31 08:55 Other specified soft tissue dis orders [facility] 2024-07-31 09:21 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, bilateral [facility] 2024-07-31 09:21 Other specified soft tissue dis orders [facility] 2024-07-31 09:29 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, bilateral [facility] 2024-07-31 09:29 Other specified soft tissue dis orders [facility] 2024-07-31 15:11 Other diseases of the pleura (J 90-J94) [employer] Results/Labs test date facility value unit notes Result panel 1 [facility] - LACTATE DEHYDROGENASE 2024-04-30 13:45 [employer] 355 iu/l Called supa Worthy RN/CHRISTIANE by Shantal Holm M.T.([facility]) at 1150 06/19/24. @Test reordered(Y/N)? yes As of October 2022 testing method has changed, this may include reference ranges. Result panel 2 NUCLEATED RED BLOOD CELLS AUTO 2024-06-11 10:31 [employer] 0.0 /100wbc (missing) NRBC ABSOLUTE COUNT (AUTO) 2024-06-11 10:31 [employer] 0.00 x10 3/ul (missing) BASOPHILS # (AUTO) 2024-06-11 10:31 [employer] 0.1 10 3/ul (missing) MONOCYTES # (AUTO) 2024-06-11 10:31 [employer] 0.9 10 3/ul (missing) W[facility] MORPHOLOGY (MULTIPLE) 2024-06-11 10:31 [employer] 1+ REACTIVE LYMPHS (missing) (missing) [facility] MORPHOLOGY (MULTIPLE) 2024-06-11 10:31 [employer] 1+ VACUOLATION (missing) (missing) ALBUMIN/GLOBULIN RATIO 2024-06-11 10:31 [employer] 1.0 (missing) (missing) LYMPHOCYTES # (AUTO) 2024-06-11 10:31 [employer] 1.0 10 3/ul (missing) CREATININE 2024-06-11 10:31 [employer] 1.1 mg/dl As of October 2022 testing method has changed, this may include reference ranges. BILIRUBIN,TOTAL 2024-06-11 10:31 [employer] 1.2 mg/dl As of October 2022 testing method has changed, this may include reference ranges. CHLORIDE 2024-06-11 10:31 [employer] 105 mmol/l As of October 2022 testing method has changed, this may include reference ranges. HGB - HEMOGLOBIN 2024-06-11 10:31 [employer] 12.6 g/dl (missing) TRIGLYCERIDES 2024-06-11 10:31 [employer] 137 mg/dl Social History date description facility 2024-05-07 12:34 (unavailable) [facility] 2024-05-27 13:17 (unavailable) [facility] 2024-06-01 08:48 (unavailable) [facility]
[2024-08-01] MEDS ORDERED: SODIUM CHLORIDE FLUSH 0.9% 10 ML SYRINGE IVP PRN (20:53)
[2024-08-01] MEDS ORDERED: MAGNESIUM OXIDE AA CHELATE PO SCH (21:45)
[2024-08-01] MEDS: SODIUM CHLORIDE FLUSH 0.9% 10 ML SYRINGE IVP SCH (23:42)
[2024-08-02 05:29] LABS: BILIRUBIN,URINE NEGATIVE (NEGATIVE); GLUCOSE, URINE (UA) NEGATIVE (NEGATIVE); KETONES,URINE (UA) 15 mg/dL (NEGATIVE); LEUKOCYTE ESTERASE, URINE MODERATE (NEGATIVE); NITRITE,URINE NEGATIVE (NEGATIVE); OCCULT BLOOD,URINE TRACE-INTA (NEGATIVE); PROTEIN,URINE 30 mg/dL (NEGATIVE); UROBILINOGEN,URINE 1 (NORMAL) E.U./dL (NORMAL)
[2024-08-02 05:31] LABS: CLARITY,URINE HAZY (CLEAR)
[2024-08-02 05:41] LABS: BACTERIA,URINE Many /HPF (None Seen); RBC,URINE 0-5 /HPF (0-5); SQUAMOUS EPITHELIAL CELL,UR RARE Squamous (<= Few); WBC,URINE >25 /HPF (0-3)
[2024-08-02 05:49] LABS: BASOPHILS % (AUTO) 0.5 %; EOSINOPHILS % (AUTO) 11.1 %; HCT - HEMATOCRIT 36.9 % (42.0-52.0); HGB - HEMOGLOBIN 12.4 g/dL (14.0-18.0); LYMPHOCYTES % (AUTO) 6.6 %; MEAN CORPUSCULAR HEMOGLOBIN 32.5 pg (27.0-31.0); MEAN CORPUSCULAR HGB CONC 33.6 g/dL (32.0-36.0); MEAN CORPUSCULAR VOLUME 96.6 fL (80.0-94.0); MEAN PLATELET VOLUME 10.6 fL (7.4-11.4); MONOCYTES % (AUTO) 9.5 %; NEUTROPHILS % (AUTO) 71.8 %; PLT - PLATELET COUNT 212 10^3/uL (130-450); RED BLOOD COUNT 3.82 10^6/uL (4.70-6.10); RED CELL DISTRIBUTION WIDTH 16.9 % (12.0-15.0); WHITE BLOOD COUNT 16.7 x10^3/uL (4.8-10.8)
[2024-08-02 05:59] LABS: CALCIUM 7.2 mg/dL (8.5-10.3); CREATININE 0.8 mg/dL (0.6-1.3)
[2024-08-02 06:13] LABS: ABNORMAL LYMPHS % (MANUAL) 0 %; BAND NEUTROPHILS % (MANUAL) 0 %; PLATELET ESTIMATE, MANUAL NORMAL (130-450,000) (NORMAL)
[2024-08-02 06:16] LABS: EOSINOPHILS # (MANUAL) 1.7 10^3/uL (0-0.7); LYMPHOCYTES % (MANUAL) 6 %; MONOCYTES # (MANUAL) 1.2 10^3/uL (0.0-1.0); NEUTROPHILS # (MANUAL) 12.9 10^3/uL (1.5-6.6)
[2024-08-02 06:21] LABS: DIFFERENTIAL COMMENT MANUAL DIFFERENTIAL; PLATELET MORPHOLOGY PLATELET CLUMPING (NORMAL); RBC MORPHOLOGY (MULTIPLE) NORMAL APPEARANCE (NORMAL); WBC MORPHOLOGY (MULTIPLE) NORMAL APPEARANCE (NORMAL)
[2024-08-02] MEDS: ACETAMINOPHEN 325 MG TABLET PO PRN (07:03)
[2024-08-02] MEDS: APIXABAN 5 MG TABLET PO SCH (08:26)
[2024-08-02] MEDS: PANTOPRAZOLE 40 MG TABLET PO SCH (08:26)
[2024-08-02] MEDS: FOLIC ACID 1 MG TABLET PO SCH (08:26)
[2024-08-02] MEDS ORDERED: VIT B COMPLEX COMBO NO 2 PO SCH (09:00)
[2024-08-02] MEDS: cefTRIAXone 1 GM VIAL IVP SCH (11:32)
[2024-08-02] MEDS: FUROSEMIDE 20 MG/2 ML VIAL IVP SCH (12:16)
--- NOTE | 2024-08-02 13:18 | PHARMACY PROGRESS NOTE ---
Best Possible Medication History Admit Date and Time: 08/01/24 1816 Home Medications Medication Instructions Recorded Confirmed Type mv-mn-folic 200 mcg-vit K 15 1 cap PO DAILY 02/17/24 08/02/24 History mcg-lutein 5 mg-zeaxanthin 1 mg capsule (PreserVision AREDS 2 Plus Multivit) pantoprazole 40 mg tablet,delayed 40 mg PO BID #90 tabs 03/25/24 08/02/24 Rx release (Protonix) folic acid 1 mg tablet 1 mg PO QDAY #90 tabs 05/01/24 08/02/24 Rx Permanent Disabled Placard #1 ea 05/27/24 07/23/24 Rx mirtazapine 15 mg tablet 7.5 mg PO QPM 07/02/24 08/02/24 History magnesium oxide-magnesium amino 4 cap PO QDAY 07/08/24 08/02/24 History acid chelate 300 mg capsule omega-3 fatty acids 1,000 mg 1,000 mg PO QDAY 07/08/24 08/02/24 History capsule fentanyl 75 mcg/hr transdermal 1 patch transdermal Q72H Pain #10 07/17/24 08/02/24 Rx patch ea ondansetron 4 mg disintegrating 4 mg PO Q6H PRN nausea and 07/17/24 08/02/24 Rx tablet vomiting #60 tabs oxycodone 10 mg tablet 10 mg PO Q3H PRN pain #240 tabs 07/17/24 08/02/24 Rx apixaban 5 mg tablet (Eliquis) 5 mg PO BID #180 tabs 07/21/24 08/02/24 Rx capmatinib 150 mg tablet 300 mg PO BID 08/01/24 08/02/24 History Processed by: Pharmacy Medications reviewed in ED?: Yes Medication History completed: Yes Patient Interview: Completed Secondary Source(s): Insurance records [facility] Statement: As the person ultimately responsible for medication therapy, providers are able to order a medication from an existing home medication list in [facility] via the "Reconcile Routine" prior to Confirmation of that medication by administrative support assoc. Such practice is discouraged except when the physician, in their clinical judgment, deems that a medical need exists for a medication without regard to previous use.
[2024-08-02] MEDS: ALBUMIN 25% 12.5 GM/50 ML VIAL IV STA (13:25)
--- NOTE | 2024-08-02 17:21 | PROVIDER PROGRESS NOTE ---
Subjective Prog Note Date Prog Note Date: 08/02/24 Subjective Pt reports feeling: No change Current Medications Current Medications Current Medications: Current Medications Generic Name Dose Route Start Last Admin Trade Name [place] PRN Reason Stop Dose Admin Acetaminophen 650 mg 08/01/24 20:53 08/02/24 07:03 Acetaminophen 325 Mg Tablet PO 650 mg Q4HR PRN Administration Pain 1 to 4, or Fever Apixaban 5 mg 08/02/24 09:00 08/02/24 08:26 Apixaban 5 Mg Tablet PO 5 mg BID KINGS Administration Ceftriaxone Sodium 1 gm 08/02/24 11:00 08/02/24 11:32 Ceftriaxone 1 Gm Vial IVP 1 gm DAILY KINGS Administration Folic Acid 1 mg 08/02/24 09:00 08/02/24 08:26 Folic Acid 1 Mg Tablet PO 1 mg DAILY KINGS Administration Furosemide 20 mg 08/02/24 11:00 08/02/24 14:31 Furosemide 20 Mg/2 Ml Vial IVP 20 mg DAILY KINGS Administration Mirtazapine 15 mg 08/02/24 21:00 Mirtazapine 15 Mg Tablet PO QPM KINGS Oxycodone HCl 10 mg 08/02/24 09:19 Oxycodone 5 Mg Tablet PO Q3H PRN Moderate Pain (Level 4-6) Pantoprazole Sodium 40 mg 08/02/24 09:00 08/02/24 08:26 Pantoprazole 40 Mg Tablet PO 40 mg BID KINGS Administration Sodium Chloride 10 ml 08/01/24 20:53 Sodium Chloride Flush 0.9% 10 Ml Syringe IVP PRN PRN NEEDED PER PROVIDER ORDERS Sodium Chloride 10 ml 08/02/24 01:00 08/02/24 08:26 Sodium Chloride Flush 0.9% 10 Ml Syringe IVP 10 ml 0100,0900,1700 KINGS Administration Objective Vital Signs/Intake & Output Reviewed Vital Signs: Yes Vital Signs: Vital Signs x48h Temp Pulse Pulse Resp BP BP Pulse Ox 08/02/24 16:01 36.6 C 88 20 97/69 93 08/02/24 14:00 36.6 C 81 16 92/64 94 08/02/24 11:37 101 H 18 94/64 O2 Flow Rate 08/02/24 16:01 08/02/24 14:00 0 08/02/24 11:37 Intake & Output: Intake & Output 07/30/24 07/31/24 08/01/24 08/02/24 23:59 23:59 23:59 23:59 Intake Total 1849 270 / 270 Output Total 175 / 175 Balance 1849 95 / 95 Weight (kg) 69.5 kg Objective General Appearance: positive No acute distress and Alert Eyes Bilateral: positive Other ENT: positive Other (Bitemporal wasting) Neck: positive Nml inspection Respiratory: positive Chest non-tender Cardiovascular: positive Regular rate & rhythm Abdomen: positive Tenderness Skin: positive Color nml Extremities: positive Non-tender and Pedal edema Neurologic/Psychiatric: positive Oriented x3 Lab Results 08/02/24 05:15 08/02/24 05:15 Other Labs: Lab Results x24hrs 08/02/24 08/02/24 08/01/24 Range/Units 05:20 05:15 13:21 WBC 16.7 H (4.8-10.8) x10^3/uL RBC 3.82 L (4.70-6.10) 10^6/uL Hgb 12.4 L (14.0-18.0) g/dL Hct 36.9 L (42.0-52.0) % MCV 96.6 H (80.0-94.0) fL MCH 32.5 H (27.0-31.0) pg MCHC 33.6 (32.0-36.0) g/dL RDW 16.9 H (12.0-15.0) % Plt Count 212 (130-450) 10^3/uL MPV 10.6 (7.4-11.4) fL Neut # (Auto) Not Reportable Lymph # (Auto) Not Reportable [place]assen # (Auto) Not Reportable Eos # (Auto) Not Reportable Baso # (Auto) Not Reportable Absolute Nucleated RBC Not Reportable Total Counted 100 Band Neuts % (Manual) 0 (0 - 10) % Abnorm Lymph % (Manual) 0 % Nucleated RBC % Not Reportable Neutrophils # (Manual) 12.9 H (1.5-6.6) 10^3/uL Lymphocytes # (Manual) 1.0 L (1.5-3.5) 10^3/uL Monocytes # (Manual) 1.2 H (0.0-1.0) 10^3/uL Eosinophils # (Manual) 1.7 H (0-0.7) 10^3/uL Basophils # (Manual) 0.0 (0-0.1) 10^3/uL Differential Comment MANUAL DIFFERENTIAL WBC Morphology NORMAL APPEARANCE (NORMAL) Platelet Estimate NORMAL (130-450,000) (NORMAL) Platelet Morphology PLATELET CLUMPING (NORMAL) RBC Morph Micro Appear NORMAL APPEARANCE (NORMAL) Sodium 134 L (135-145) mmol/L Potassium 4.0 (3.5-4.5) mmol/L Chloride 105 (101-111) mmol/L Carbon Dioxide 23 (21-32) mmol/L Anion Gap 6.0 (6-13) BUN 21 H (6-20) mg/dL Creatinine 0.8 (0.6-1.3) mg/dL Estimated GFR (MDRD) 94 (>89) Glucose 107 H (74-104) mg/dL Calcium 7.2 L (8.5-10.3) mg/dL B-Natriuretic Peptide 54 (5-100) pg/mL Urine Color DARK YELLOW Urine Clarity HAZY (CLEAR) Urine pH 6.0 (5.0-7.5) PH Ur Specific [place] 1.015 (1.002-1.030) Urine Protein 30 H (NEGATIVE) mg/dL Urine Glucose (UA) NEGATIVE (NEGATIVE) mg/dL Urine Ketones 15 H (NEGATIVE) mg/dL Urine Occult Blood TRACE-INTA (NEGATIVE) Urine Nitrite NEGATIVE (NEGATIVE) Urine Bilirubin NEGATIVE (NEGATIVE) Urine Urobilinogen 1 (NORMAL) (NORMAL) E.U./dL Ur Leukocyte Esterase MODERATE H (NEGATIVE) Urine RBC 0-5 (0-5) /HPF Urine WBC >25 H (0-3) /HPF Ur Squamous Epith Cells RARE Squamous (<= Few) Urine Bacteria Many H (None Seen) /HPF Ur Microscopic Review INDICATED Urine Culture Comments INDICATED Assessment/Plan Problem List (1) Anasarca: Impression: He has been having soft blood pressures with systolic blood pressures in the 90s I have added a one-time dose of albumin to go with today's Lasix to support blood pressure during IV diuresis Continue strict intake and output (2) Cancer, metastatic to liver: Impression: Established with Dr. Olmedo/Jany Altamirano On capmatinib for his lung cancer He is already established with palliative care He had a recent informational visit with hospice, but he and his declined at that time 08/02/2024: I spoke with hospice today, they will send an RN over for an informational visit Suspect that placement could not happen until Saturday or Saturday I am continuing medical management of complications of his cancer for now He continues to endorse severe cancer related pain, I am adding Dilaudid 0.5 mg IV as needed I am continuing his oxycodone 10 mg p.o. every 3 hours He has a fentanyl patch on that was placed last night from home (3) Pneumothorax on right: Impression: Stable If he has any respiratory distress, will obtain chest x-ray
[2024-08-02] MEDS: MIRTAZAPINE 15 MG TABLET PO SCH (20:48)
[2024-08-02] MEDS: oxyCODONE 5 MG TABLET PO PRN (20:49)
[2024-08-03] MEDS: SENNA 8.6 MG TABLET PO SCH (04:28)
[2024-08-03 05:35] LABS: BASOPHILS % (AUTO) 0.5 %; EOSINOPHILS % (AUTO) 14.9 %; HCT - HEMATOCRIT 35.3 % (42.0-52.0); HGB - HEMOGLOBIN 11.6 g/dL (14.0-18.0); LYMPHOCYTES % (AUTO) 6.9 %; MEAN CORPUSCULAR HEMOGLOBIN 32.4 pg (27.0-31.0); MEAN CORPUSCULAR HGB CONC 32.9 g/dL (32.0-36.0); MEAN CORPUSCULAR VOLUME 98.6 fL (80.0-94.0); MEAN PLATELET VOLUME 10.5 fL (7.4-11.4); MONOCYTES % (AUTO) 8.8 %; NEUTROPHILS % (AUTO) 68.3 %; RED BLOOD COUNT 3.58 10^6/uL (4.70-6.10); RED CELL DISTRIBUTION WIDTH 16.9 % (12.0-15.0)
[2024-08-03 05:46] LABS: CALCIUM 7.1 mg/dL (8.5-10.3); CREATININE 0.8 mg/dL (0.6-1.3); POTASSIUM 3.5 mmol/L (3.5-4.5)
[2024-08-03 05:57] LABS: SLIDE REVIEW? Indicated
[2024-08-03 06:09] LABS: PLT - PLATELET COUNT 218 10^3/uL (130-450); WHITE BLOOD COUNT 16.9 x10^3/uL (4.8-10.8)
[2024-08-03 06:11] LABS: PLATELET ESTIMATE, MANUAL NORMAL (130-450,000) (NORMAL); PLATELET MORPHOLOGY PLATELET CLUMPING (NORMAL)
[2024-08-03 06:12] LABS: ABNORMAL LYMPHS % (MANUAL) 0 %; BAND NEUTROPHILS % (MANUAL) 0 %; RBC MORPHOLOGY (MULTIPLE) 1+ OVALOCYTES (NORMAL); WBC MORPHOLOGY (MULTIPLE) NORMAL APPEARANCE (NORMAL)
[2024-08-03 06:19] LABS: DIFFERENTIAL COMMENT MANUAL DIFFERENTIAL; EOSINOPHILS # (MANUAL) 2.4 10^3/uL (0-0.7); LYMPHOCYTES # (MANUAL) 0.5 10^3/uL (1.5-3.5); LYMPHOCYTES % (MANUAL) 3 %
[2024-08-03] MEDS: polyethylene glycoL 3350 17 GM PACKET PO SCH (08:59)
[2024-08-03] MEDS: MIDODRINE 2.5 MG TABLET PO SCH (09:16)
[2024-08-03] MEDS: ALBUMIN 25% 12.5 GM/50 ML VIAL IV STA (09:16)
--- NOTE | 2024-08-03 11:48 | Palliative Care ---
Vitals Vital Signs 08/01/24 13:10 08/01/24 13:21 08/01/24 13:36 08/01/24 13:51 08/01/24 14:06 08/01/24 14:21 08/01/24 14:30 08/01/24 14:45 08/01/24 15:00 08/01/24 15:15 08/01/24 15:30 08/01/24 16:15 08/01/24 16:30 08/01/24 16:51 08/01/24 17:51 08/01/24 18:21 08/01/24 19:39 08/01/24 19:54 08/01/24 23:40 08/02/24 08:27 08/02/24 11:37 08/02/24 14:00 08/02/24 16:01 08/02/24 23:47 08/03/24 09:01 08/03/24 11:48 Height 5 ft 7 in 5 ft 10 in 5 ft 10 in Weight 160 lb 7.944 oz 153 lb 3.54 oz 153 lb 3.54 oz BMI 22.0 BP 85/65 L 93/67 94/68 98/72 93/66 88/67 L 90/68 92/69 92/69 110/78 10 6/65 90/64 103/77 103/77 97/72 90/64 96/68 98/68 90/64 94/64 92/64 97/69 86/67 L 89/58 L Respiration 22 20 20 20 20 20 20 18 18 19 17 17 16 20 16 16 14 16 22 18 16 20 18 16 Pulse 86 94 77 78 82 80 79 78 81 80 76 73 86 97 82 79 94 81 9 8 101 H 81 88 99 87 Temp 97.8 F 98.1 F 97.9 F 97.3 F L 97.9 F 97.9 F 98.1 F 98.1 F Temp Source Oral Skin Temporal Artery Scan Temporal Artery Sc an Temporal Artery Scan Temporal Artery Scan Temporal Artery Scan Temporal Arter y Scan Pulse Oximetry 95 97 94 96 96 95 96 96 96 96 96 97 96 96 96 96 95 95 96 94 93 95 96 Meds/Allgy Home Medications Ambulatory Orders Medication Instructions Recorded Confirmed mv-mn-folic 200 mcg-vit K 15 1 cap PO DAILY 02/17/24 08/02/24 mcg-lutein 5 mg-zeaxanthin 1 mg capsule (PreserVision AREDS 2 Plus Multivit) pantoprazole 40 mg tablet,delayed 40 mg PO BID #90 tabs 03/25/24 08/02/24 release (Protonix) folic acid 1 mg tablet 1 mg PO QDAY #90 tabs 05/01/24 08/02/24 Permanent Disabled Placard #1 ea 05/27/24 07/23/24 mirtazapine 15 mg tablet 7.5 mg PO QPM 07/02/24 08/02/24 magnesium oxide-magnesium amino 4 cap PO QDAY 07/08/24 08/02/24 acid chelate 300 mg capsule omega-3 fatty acids 1,000 mg 1,000 mg PO QDAY 07/08/24 08/02/24 capsule fentanyl 75 mcg/hr transdermal 1 patch transdermal Q72H Pain #10 07/17/24 08/02/24 patch ea ondansetron 4 mg disintegrating 4 mg PO Q6H PRN nausea and 07/17/24 08/02/24 tablet vomiting #60 tabs oxycodone 10 mg tablet 10 mg PO Q3H PRN pain #240 tabs 07/17/24 08/02/24 apixaban 5 mg tablet (Eliquis) 5 mg PO BID #180 tabs 07/21/24 08/02/24 capmatinib 150 mg tablet 300 mg PO BID 08/01/24 08/02/24 Allergies Allergies Allergy/AdvReac Type Severity Reaction Status Date / Time No Known Drug Allergies Allergy Verified 07/22/24 12:35 CC HPI Chief Complaint Chief Complaint: Failure to thrive; Met Lung CA with extensive mets History Obtained From Records Reviewed: ED/oncology; hospitalist History obtained from: ; hospitalist Exam Limitations: patient very weak and sleepy; fluctuating confusion History of Present Illness HPI: This is a frail, 73-year-old elderly, gentleman with Stage IV Lung Cancer with extensive bone and liver mets, with obstructing tumor of RML. Patient had recurrent shortness of breath last week, and had a thoracentesis 07/27 with 1/5 liters removed. His previous one with hospital stay was 07/17 for 1.8 liters. Patient admitted over weekend related to worsening weakness, had to call 911. has continued to hope patient would improve, is aware patient is pending hospice admit, but has been happy with diuretics and care has received. Patient's CT scan done in ED showed worsening disease, and though aware, wa s hoping for a miracle and answered prayers. She is able to admit he is dying and has been moving forward with plans, patient did get annoinnted last night, and she is feeling overwhelmed about bringing him home with out "nursing care". Concern for recurrent and symptomatic pleural effusions, has pending on ordered for thoracentesis, does not present with any respiratory distress, has dry cough, and slept through most of my visit. Patient does not present with hypoxia. Patient with mild improvement only of swelling of extremities. Patient is on Fentanyl 75 mcg. Pain is still notable in coccyx and lower back. Does have the hospital bed at home. Patient has been, patient most comfortable laying out. Patient continues to sleep most of the time, and sister have been at bedside, she reports he has taken a small amount of ensure. Chantal's [facility], so has some support to help with patient's ongoing care needs. Palliative Care Performance Status Performance status: Has been mostly bedbound, walking only short distances prior to hospitalization. More difficult with anasarca, needing assist with ADLs. Palliative Care Discussion: Met with Chantal, discussed at length the patient's demise and her perception regarding his hospitalization. She has been pleased they "gave him diuretics", that she does feel like he is more comfortable though we discussed that this is not going to make things better. Reviewed again what Maddie looks like, the patient has worsening disease, they will not continue his current oral treatment, though she wanted to start at lower dose. She does acknowledge patient is going home on hospice with the goal for a comfortable . She is distressed there will not be a nurse 12/11, we discussed though it will be available as far as help and support, will feel more tended to than home health, and bathing will be followed through on. They had been "waiting" for home health aide for several weeks with home health services. She does remain fairly distressed at just the length of time and has taken to work him up, get his treatment, and continued his failure to thrive. She is able to reflect on the fact her "prayers have not been answered". She is been talking to him about plans, feels like they have not come to a final agreement, he does want to be cremated. She is planning to take him back to the [facility] as well as return herself to live with her sister. Her sister Anastasia is here which is of support to her. She appears quite exhausted both physically and emotionally. Psychosocial support and reassurance provided. [facility], [facility] Active Problems All Active Problems (Updated 08/01/24 @ 18:01 by Magdi Johns DNP) Cancer, metastatic to liver (Acute) Cancer, metastatic to bone (Acute) Anasarca (Acute) Anasarca (Acute) Elevated WBC count (Acute) Urinary frequency (Acute) Thrombophilia (Acute) Diplopia (Acute) Pneumothorax on right (Acute) Pain due to neoplasm (Acute) Stage I decubitus ulcer and pressure area (Acute) Edema of both lower extremities (Acute) Non-small cell cancer of right lung (Acute) Pleural effusion, right (Acute) Pulmonary embolism on left (Acute) Acute bilateral deep vein thrombosis (DVT) of popliteal veins (Acute) Encounter for antineoplastic chemotherapy (Acute) Leg swelling (Acute) Dyspnea (Acute) Muscle weakness (generalized) (Acute) Stage II pressure ulcer of buttock (Acute) Obstructive pneumonia (Acute) Obstructive airway disease (Chronic) Dehydration (Acute) Back pain (Acute) Collapse of right lung (Acute) Non-small cell lung cancer metastatic to liver (Chronic) Spondylosis (Acute) Advance care planning (Acute) Cancer associated pain (Acute) Healthcare maintenance (Acute) 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(Chronic) Anxiety (Acute) Constipation due to opioid therapy (Acute) Caregiver burden (Acute) Counseling regarding advance care planning and goals of care (Acute) Anorexia (Acute) Endobronchial mass (Acute) Epigastric pain (Acute) Allergic arthritis of right knee (Acute) Acute arthritis (Acute) Rotator cuff impingement syndrome (Acute) Diverticulitis, colon (Acute) Thrombocytopenia (Acute) DJD (degenerative joint disease), lumbar (Acute) Mixed hyperlipidemia (Acute) Medical History Medical History (Updated 08/01/24 @ 18:01 by Magdi Johns DNP) Helicobacter pylori gastritis Oral candidiasis Exposure to hepatitis B 02/2020, + core antibody and - surface antigen Gastritis Angular cheilitis Inflamed seborrheic keratosis Chronic rhinitis Onychomycosis Skin nodule Degenerative joint disease (DJD) of lumbar spine Hyperlipidemia History of diverticulosis Male pattern alopecia Right upper quadrant abdominal pain Surgical History Surgical History H/O endoscopy History of esophagogastroduodenoscopy (EGD) (~03/25/24) gastritis, no ulcer History of hydrocelectomy History of colonoscopy Family History Family History Mother Diabetes Father CVA (cerebral vascular accident) Brother Diabetes Aunt Breast cancer Son Arthritis Social History Social History Smoking Status: Former smoker If you are a former smoker, when did you quit? (Date/Year): 2004 Number of Years Smoked: 20 How many cigarettes a day do you smoke? (20 cigarettes=1 Pk): 10 Second hand tobacco smoke exposure: Yes Do you dip or chew tobacco?: No Do you vape?: No Patient requests smoking cessation consult: No Initiate information on smoking cessation: No Smoking Status Details: quit 30 years ago Living arrangement: At home Marital Status: Living Condition: With spouse/s.o. 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 reports he is the one that is choosing hospice. Exam Exam Vital Signs: Vital Signs x48h Temp Pulse Resp BP Pulse Ox 08/03/24 09:01 98.1 F 87 16 89/58 L 96 Patient sleeping on back with mouth open, intermittent dry cough. Did awaken and recognize PLANT [employer], said in response how he is doing "I am exhausted". Does not present with respiratory distress, remains quite cachetic with anasarca of extremities though less. Impression Impression: This is a 73-year-old elderly, gentleman who has metastatic lung cancer, widely spread metastatic disease worsening, has failed his current treatment regimen. Patient with recurrent pleural effusions, anasarca, and declining functional and cognitive status. Patient wanting to at home, Chantal struggling with patient's imminent demise. Counseling provided in support of transition to hospice, awaiting hospice informational visit. Assessment & Plan Assessment & Plan (1) Counseling regarding advance care planning and goals of care: Assessment: Patient not really able to participate in goals conversation today, though Chantal identifies he did say yes to hospice and wants to go home to . Code(s): Z71.89 - Other specified counseling Plan: Patient appropriate to discharge with hospice, will need ambulance transfer, and concern for high risk bereavement with Chantal. Discussed her dilemma with her adelaida and patient's wishes for plans. Has received annointing from his one piece expansion maker hand last night, she knows he will now "[facility] when he [facility]. (2) Caregiver burden: Assessment: Patient continues with high care needs and dependence on caregiving. Chantal has been quite exhausted through all of this, her sister Anastasia has arrived from the [facility] to provide support. Chantal presents with continued anticipatory grief. Her adelaida is very important to her, and finds it very supportive to her in this current situation but feels her prayers were not answered so struggles some. Code(s): Z63.6 - Dependent relative needing care at home (3) Pain due to neoplasm: Assessment: Patient's pain is multifactorial, most notable per patient's complaint in lower lumbar/coccyx area. This is combination of both disease and mechanical with weight loss and pressure points. Patient is currently on fentanyl 75 mcg patch, is using less oxycodone 1-2 in 24 hours, suspect pain also somewhat mitigated by hospital bed and being able to lay flat. Patient has done well on current regimen. Code(s): G89.3 - Neoplasm related pain (acute) (chronic) (4) Anasarca: Assessment: Patient presents with worsening anasarca, with third spacing not only lower extremity edema up to thighs and sacral area, as well as upper extremities. Suspect this is multifactorial, including low albumin, side effects of medication, and sedentary status. He has had some diuresis during hospital stay, perceives this has helped. Counseling provided regarding that this may persist given this is part of the dying process. Code(s): R60.1 - Generalized edema Plan Palliative care with superintendent terminal rapport with patient and , visit made to support transition to hospice. Awaiting informational visit and plans for discharge. Medications: On Hold magnesium oxide-Mg AA chelate 300 mg Hold Comment: Per Patient 4 caps PO QDAY
[2024-08-03] MEDS ORDERED: PROCHLORPERAZINE 10 MG/2 ML VIAL IVP PRN (14:53)
--- NOTE | 2024-08-03 15:23 | PROVIDER PROGRESS NOTE ---
Subjective Prog Note Date Prog Note Date: 08/03/24 Subjective Pt reports feeling: No change Subjective: Having nausea and soft blood pressures Current Medications Current Medications Current Medications: Current Medications Generic Name Dose Route Start Last Admin Trade Name Freq PRN Reason Stop Dose Admin Acetaminophen 650 mg 08/01/24 20:53 08/02/24 07:03 Acetaminophen 325 Mg Tablet PO 650 mg Q4HR PRN Administration Pain 1 to 4, or Fever Apixaban 5 mg 08/02/24 09:00 08/03/24 08:58 Apixaban 5 Mg Tablet PO 5 mg BID KINGS Administration Ceftriaxone Sodium 1 gm 08/02/24 11:00 08/03/24 08:58 Ceftriaxone 1 Gm Vial IVP 1 gm DAILY KINGS Administration Folic Acid 1 mg 08/02/24 09:00 08/03/24 08:58 Folic Acid 1 Mg Tablet PO 1 mg DAILY KINGS Administration Furosemide 20 mg 08/02/24 11:00 08/03/24 08:58 Furosemide 20 Mg/2 Ml Vial IVP 20 mg DAILY KINGS Administration Hydromorphone HCl 0.5 mg 08/02/24 17:21 Hydromorphone 0.5 Mg/0.5 Ml Syringe IVP Q2H PRN Severe Pain (Level 7-10) Midodrine 5 mg 08/03/24 10:00 08/03/24 15:03 Midodrine 2.5 Mg Tablet PO 5 mg TID KINGS Administration Mirtazapine 15 mg 08/02/24 21:00 08/02/24 20:48 Mirtazapine 15 Mg Tablet PO 15 mg QPM KINGS Administration Ondansetron HCl 4 mg 08/03/24 14:53 Ondansetron 4 Mg/2 Ml Vial IVP Q4HR PRN Nausea / Vomiting Oxycodone HCl 10 mg 08/02/24 09:19 08/03/24 07:51 Oxycodone 5 Mg Tablet PO 10 mg Q3H PRN Administration Moderate Pain (Level 4-6) Pantoprazole Sodium 40 mg 08/02/24 09:00 08/03/24 08:58 Pantoprazole 40 Mg Tablet PO 40 mg BID KINGS Administration Polyethylene Glycol 17 gm 08/03/24 09:00 08/03/24 08:59 Polyethylene Glycol 3350 17 Gm Packet PO 17 gm DAILY KINGS Administration Prochlorperazine Edisylate 10 mg 08/03/24 14:53 Prochlorperazine 10 Mg/2 Ml Vial IVP Q6HR PRN Nausea / Vomiting Senna 8.6 - 17.2 mg 08/03/24 05:00 08/03/24 04:28 Senna 8.6 Mg Tablet PO 8.6 mg DAILY KINGS Administration Sodium Chloride 10 ml 08/01/24 20:53 Sodium Chloride Flush 0.9% 10 Ml Syringe IVP PRN PRN NEEDED PER PROVIDER ORDERS Sodium Chloride 10 ml 08/02/24 01:00 08/03/24 08:59 Sodium Chloride Flush 0.9% 10 Ml Syringe IVP 10 ml 0100,0900,1700 KINGS Administration Objective Vital Signs/Intake & Output Reviewed Vital Signs: Yes Vital Signs: Vital Signs x48h Temp Pulse Resp BP Pulse Ox 08/03/24 09:01 36.7 C 87 16 89/58 L 96 Intake & Output: Intake & Output 07/31/24 08/01/24 08/02/24 08/03/24 23:59 23:59 23:59 23:59 Intake Total 1850 / 1850 470 / 470 286 / 286 Output Total 175 / 175 Balance 1850 / 1850 295 / 295 286 / 286 Weight (kg) 69.5 kg 69.5 kg Objective General Appearance: positive No acute distress and Alert Eyes Bilateral: positive Other ENT: positive Other (Bitemporal wasting) Neck: positive Nml inspection Respiratory: positive Chest non-tender Cardiovascular: positive Regular rate & rhythm Abdomen: positive Tenderness Skin: positive Color nml Extremities: positive Non-tender and Pedal edema Neurologic/Psychiatric: positive Oriented x3 Lab Results 08/03/24 04:52 08/03/24 04:52 Other Labs: Lab Results x24hrs 08/03/24 Range/Units 04:52 WBC 16.9 H (4.8-10.8) x10^3/uL RBC 3.58 L (4.70-6.10) 10^6/uL Hgb 11.6 L (14.0-18.0) g/dL Hct 35.3 L (42.0-52.0) % MCV 98.6 H (80.0-94.0) fL MCH 32.4 H (27.0-31.0) pg MCHC 32.9 (32.0-36.0) g/dL RDW 16.9 H (12.0-15.0) % Plt Count 218 (130-450) 10^3/uL MPV 10.5 (7.4-11.4) fL Neut # (Auto) Not Reportable Lymph # (Auto) Not Reportable [place] # (Auto) Not Reportable Eos # (Auto) Not Reportable Baso # (Auto) Not Reportable Absolute Nucleated RBC Not Reportable Total Counted 100 Band Neuts % (Manual) 0 (0 - 10) % Abnorm Lymph % (Manual) 0 % Nucleated RBC % Not Reportable Neutrophils # (Manual) 13.0 H (1.5-6.6) 10^3/uL Lymphocytes # (Manual) 0.5 L (1.5-3.5) 10^3/uL Monocytes # (Manual) 1.0 (0.0-1.0) 10^3/uL Eosinophils # (Manual) 2.4 H (0-0.7) 10^3/uL Basophils # (Manual) 0.0 (0-0.1) 10^3/uL Differential Comment MANUAL DIFFERENTIAL Manual Slide Review Indicated WBC Morphology NORMAL APPEARANCE (NORMAL) Platelet Estimate NORMAL (130-450,000) (NORMAL) Platelet Morphology PLATELET CLUMPING (NORMAL) RBC Morph Micro Appear 1+ OVALOCYTES (NORMAL) Sodium 134 L (135-145) mmol/L Potassium 3.5 (3.5-4.5) mmol/L Chloride 104 (101-111) mmol/L Carbon Dioxide 26 (21-32) mmol/L Anion Gap 4.0 L (6-13) BUN 22 H (6-20) mg/dL Creatinine 0.8 (0.6-1.3) mg/dL Estimated GFR (MDRD) 94 (>89) Glucose 113 H (74-104) mg/dL Calcium 7.1 L (8.5-10.3) mg/dL Assessment/Plan Problem List (1) Anasarca: Impression: He has been having soft blood pressures with systolic blood pressures in the 90s I have added a one-time dose of albumin to go with today's Lasix to support blood pressure during IV diuresis Continue strict intake and output 08/03/2024: Blood pressure this morning was 89/58. I have added midodrine and albumin to support diuresis. I am continuing to impress upon the family at bedside that he is actively dying. Awaiting hospice input (2) Cancer, metastatic to liver: Impression: Established with Dr. Olmedo/Jany Altamirano On capmatinib for his lung cancer He is already established with palliative care He had a recent informational visit with hospice, but he and his declined at that time 08/02/2024: I spoke with hospice today, they will send an RN over for an informational visit Suspect that placement could not happen until Saturday or Saturday I am continuing medical management of complications of his cancer for now He continues to endorse severe cancer related pain, I am adding Dilaudid 0.5 mg IV as needed I am continuing his oxycodone 10 mg p.o. every 3 hours He has a fentanyl patch on that was placed last night from home 08/03/2024: I am continuing his home fentanyl patch and oxycodone. I am also continuing his Dilaudid 0.5 mg IV. Nursing to monitor closely for respiratory depression. Still awaiting input from hospice regarding placement at discharge. Family is open to discussing with hospice but has not agreed to make him hospice yet. Family reports that Dr. Olmedo had recommended a thoracentesis as he continues to have pleural effusion. He still has a pneumothorax from the last thoracentesis and is on room air with no respiratory distress so I am hesitant to perform another thoracentesis at this time (3) Pneumothorax on right: Impression: Stable If he has any respiratory distress, will obtain chest x-ray
[2024-08-03] MEDS: ONDANSETRON 4 MG/2 ML VIAL IVP PRN (21:25)
[2024-08-04 05:09] LABS: BASOPHILS % (AUTO) 0.8 %; EOSINOPHILS % (AUTO) 18.8 %; HGB - HEMOGLOBIN 11.2 g/dL (14.0-18.0); LYMPHOCYTES % (AUTO) 8.9 %; MEAN CORPUSCULAR HEMOGLOBIN 32.5 pg (27.0-31.0); MEAN CORPUSCULAR HGB CONC 33.9 g/dL (32.0-36.0); MEAN CORPUSCULAR VOLUME 95.7 fL (80.0-94.0); MEAN PLATELET VOLUME 9.9 fL (7.4-11.4); MONOCYTES % (AUTO) 10.7 %; NEUTROPHILS % (AUTO) 60.2 %; RED BLOOD COUNT 3.45 10^6/uL (4.70-6.10); RED CELL DISTRIBUTION WIDTH 16.8 % (12.0-15.0); WHITE BLOOD COUNT 14.1 x10^3/uL (4.8-10.8)
[2024-08-04 05:19] LABS: PLT - PLATELET COUNT 139 10^3/uL (130-450)
[2024-08-04 05:20] LABS: ABNORMAL LYMPHS % (MANUAL) 0 %
[2024-08-04 05:54] LABS: CALCIUM 6.7 mg/dL (8.5-10.3); CREATININE 0.7 mg/dL (0.6-1.3); POTASSIUM 3.4 mmol/L (3.5-4.5)
[2024-08-04 06:16] LABS: BAND NEUTROPHILS % (MANUAL) 5 %; BASOPHILS # (MANUAL) 0.1 10^3/uL (0-0.1); BASOPHILS % (MANUAL) 1 %; EOSINOPHILS # (MANUAL) 2.8 10^3/uL (0-0.7); LYMPHOCYTES # (MANUAL) 1.8 10^3/uL (1.5-3.5); LYMPHOCYTES % (MANUAL) 13 %; MONOCYTES # (MANUAL) 0.4 10^3/uL (0.0-1.0); NEUTROPHILS # (MANUAL) 8.9 10^3/uL (1.5-6.6); RBC MORPHOLOGY (MULTIPLE) NORMAL APPEARANCE (NORMAL)
[2024-08-04 06:17] LABS: DIFFERENTIAL COMMENT MANUAL DIFFERENTIAL; PLATELET ESTIMATE, MANUAL NORMAL (130-450,000) (NORMAL); PLATELET MORPHOLOGY PLATELET C (NORMAL); WBC MORPHOLOGY (MULTIPLE) NORMAL APPEARANCE (NORMAL)
[2024-08-04] MEDS: POTASSIUM BICARB 25 MEQ TABLET PO ONE (11:31)
--- NOTE | 2024-08-04 12:03 | PROVIDER PROGRESS NOTE ---
Subjective Prog Note Date Prog Note Date: 08/04/24 Subjective Pt reports feeling: No change Current Medications Current Medications Current Medications: Current Medications Generic Name Dose Route Start Last Admin Trade Name [place] PRN Reason Stop Dose Admin Acetaminophen 650 mg 08/01/24 20:53 08/02/24 07:03 Acetaminophen 325 Mg Tablet PO 650 mg Q4HR PRN Administration Pain 1 to 4, or Fever Apixaban 5 mg 08/02/24 09:00 08/04/24 08:41 Apixaban 5 Mg Tablet PO 5 mg BID KINGS Administration Ceftriaxone Sodium 1 gm 08/02/24 11:00 08/04/24 08:41 Ceftriaxone 1 Gm Vial IVP 1 gm DAILY KINGS Administration Folic Acid 1 mg 08/02/24 09:00 08/04/24 08:41 Folic Acid 1 Mg Tablet PO 1 mg DAILY KINGS Administration Furosemide 20 mg 08/02/24 11:00 08/04/24 08:41 Furosemide 20 Mg/2 Ml Vial IVP 20 mg DAILY KINGS Administration Hydromorphone HCl 0.5 mg 08/02/24 17:21 Hydromorphone 0.5 Mg/0.5 Ml Syringe IVP Q2H PRN Severe Pain (Level 7-10) Midodrine 5 mg 08/03/24 10:00 08/04/24 05:59 Midodrine 2.5 Mg Tablet PO 5 mg TID KINGS Administration Mirtazapine 15 mg 08/02/24 21:00 08/03/24 21:06 Mirtazapine 15 Mg Tablet PO 15 mg QPM KINGS Administration Ondansetron HCl 4 mg 08/03/24 14:53 08/03/24 21:25 Ondansetron 4 Mg/2 Ml Vial IVP 4 mg Q4HR PRN Administration Nausea / Vomiting Oxycodone HCl 10 mg 08/02/24 09:19 08/04/24 05:59 Oxycodone 5 Mg Tablet PO 10 mg Q3H PRN Administration Moderate Pain (Level 4-6) Pantoprazole Sodium 40 mg 08/02/24 09:00 08/04/24 08:41 Pantoprazole 40 Mg Tablet PO 40 mg BID KINGS Administration Polyethylene Glycol 17 gm 08/03/24 09:00 08/04/24 08:41 Polyethylene Glycol 3350 17 Gm Packet PO 17 gm DAILY KINGS Administration Prochlorperazine Edisylate 10 mg 08/03/24 14:53 Prochlorperazine 10 Mg/2 Ml Vial IVP Q6HR PRN Nausea / Vomiting Senna 8.6 - 17.2 mg 08/03/24 05:00 08/04/24 08:41 Senna 8.6 Mg Tablet PO 8.6 mg DAILY KINGS Administration Sodium Chloride 10 ml 08/01/24 20:53 Sodium Chloride Flush 0.9% 10 Ml Syringe IVP PRN PRN NEEDED PER PROVIDER ORDERS Sodium Chloride 10 ml 08/02/24 01:00 08/04/24 08:41 Sodium Chloride Flush 0.9% 10 Ml Syringe IVP 10 ml 0100,0900,1700 KINGS Administration Objective Vital Signs/Intake & Output Reviewed Vital Signs: Yes Vital Signs: Vital Signs x48h Temp Pulse Resp BP Pulse Ox 08/04/24 07:59 36.9 C 76 18 91/61 92 Intake & Output: Intake & Output 08/01/24 08/02/24 08/03/24 08/04/24 23:59 23:59 23:59 23:59 Intake Total 1850 / 1850 470 / 470 586 / 586 360 / 360 Output Total 175 / 175 400 / 400 Balance 1850 / 1850 295 / 295 586 / 586 -40 / -40 Weight (kg) 69.5 kg 69.5 kg Objective General Appearance: positive No acute distress and Alert Eyes Bilateral: positive Other ENT: positive Other (Bitemporal wasting) Neck: positive Nml inspection Respiratory: positive Chest non-tender Cardiovascular: positive Regular rate & rhythm Abdomen: positive Tenderness Skin: positive Color nml Extremities: positive Non-tender and Pedal edema Neurologic/Psychiatric: positive Oriented x3 Lab Results 08/04/24 05:01 08/04/24 05:01 Other Labs: Lab Results x24hrs 08/04/24 Range/Units 05:01 WBC 14.1 H (4.8-10.8) x10^3/uL RBC 3.45 L (4.70-6.10) 10^6/uL Hgb 11.2 L (14.0-18.0) g/dL Hct 33.0 L (42.0-52.0) % MCV 95.7 H (80.0-94.0) fL MCH 32.5 H (27.0-31.0) pg MCHC 33.9 (32.0-36.0) g/dL RDW 16.8 H (12.0-15.0) % Plt Count 139 (130-450) 10^3/uL MPV 9.9 (7.4-11.4) fL Neut # (Auto) Not Reportable Lymph # (Auto) Not Reportable [place] # (Auto) Not Reportable Eos # (Auto) Not Reportable Baso # (Auto) Not Reportable Absolute Nucleated RBC Not Reportable Total Counted 100 Band Neuts % (Manual) 5 (0 - 10) % Abnorm Lymph % (Manual) 0 % Nucleated RBC % Not Reportable Neutrophils # (Manual) 8.9 H (1.5-6.6) 10^3/uL Lymphocytes # (Manual) 1.8 (1.5-3.5) 10^3/uL Monocytes # (Manual) 0.4 (0.0-1.0) 10^3/uL Eosinophils # (Manual) 2.8 H (0-0.7) 10^3/uL Basophils # (Manual) 0.1 (0-0.1) 10^3/uL Differential Comment MANUAL DIFFERENTIAL WBC Morphology NORMAL APPEARANCE (NORMAL) Platelet Estimate NORMAL (130-450,000) (NORMAL) Platelet Morphology PLATELET C (NORMAL) RBC Morph Micro Appear NORMAL APPEARANCE (NORMAL) Sodium 135 (135-145) mmol/L Potassium 3.4 L (3.5-4.5) mmol/L Chloride 105 (101-111) mmol/L Carbon Dioxide 27 (21-32) mmol/L Anion Gap 3.0 L (6-13) BUN 16 (6-20) mg/dL Creatinine 0.7 (0.6-1.3) mg/dL Estimated GFR (MDRD) 110 (>89) Glucose 95 (74-104) mg/dL Calcium 6.7 L (8.5-10.3) mg/dL Assessment/Plan Problem List (1) Anasarca: Impression: He has been having soft blood pressures with systolic blood pressures in the 90s I have added a one-time dose of albumin to go with today's Lasix to support blood pressure during IV diuresis Continue strict intake and output 08/03/2024: Blood pressure this morning was 89/58. I have added midodrine and albumin to support diuresis. I am continuing to impress upon the family at bedside that he is actively dying. Awaiting hospice input 08/04/2024: Hospitalist rounded yesterday while was not available. The goes home and takes naps during the day. Plan to have discussion with at bedside at 3 with hospice present. I did reach out to the oncology office to ask for their input. I suspect that this patient has less than 2 weeks to live regardless of any treatment. The midodrine has had some effect on blood pressure, it was 91/61 this morning. I am continuing the midodrine. He has poor urine output. I am switching him to a Bumex drip for more gentle diuresis (2) Cancer, metastatic to liver: Impression: Established with Dr. Olemdo/Jany Altamirano On capmatinib for his lung cancer He is already established with palliative care He had a recent informational visit with hospice, but he and his declined at that time 08/02/2024: I spoke with hospice today, they will send an RN over for an informational visit Suspect that placement could not happen until Saturday or Saturday I am continuing medical management of complications of his cancer for now He continues to endorse severe cancer related pain, I am adding Dilaudid 0.5 mg IV as needed I am continuing his oxycodone 10 mg p.o. every 3 hours He has a fentanyl patch on that was placed last night from home 08/03/2024: I am continuing his home fentanyl patch and oxycodone. I am also continuing his Dilaudid 0.5 mg IV. Nursing to monitor closely for respiratory depression. Still awaiting input from hospice regarding placement at discharge. Family is open to discussing with hospice but has not agreed to make him hospice yet. Family reports that Dr. Olmedo had recommended a thoracentesis as he continues to have pleural effusion. He still has a pneumothorax from the last thoracentesis and is on room air with no respiratory distress so I am hesitant to perform another thoracentesis at this time (3) Pneumothorax on right: Impression: Stable If he has any respiratory distress, will obtain chest x-ray
[2024-08-04] MEDS: BUMETANIDE INJ 10 MG in SODIUM CHLORIDE 0.9% 210 ML IV SCH (13:27)
[2024-08-04] MEDS: FENTANYL 75 MCG/HR TOP SCH (14:45)
[2024-08-04] MEDS: HYDROmorphone 0.5 MG/0.5 ML SYRINGE IVP PRN (22:08)
[2024-08-05 06:07] LABS: BASOPHILS % (AUTO) 0.5 %; EOSINOPHILS % (AUTO) 13.1 %; HCT - HEMATOCRIT 39.7 % (42.0-52.0); HGB - HEMOGLOBIN 13.3 g/dL (14.0-18.0); LYMPHOCYTES % (AUTO) 7.8 %; MEAN CORPUSCULAR HEMOGLOBIN 31.9 pg (27.0-31.0); MEAN CORPUSCULAR HGB CONC 33.5 g/dL (32.0-36.0); MEAN CORPUSCULAR VOLUME 95.2 fL (80.0-94.0); MEAN PLATELET VOLUME 11.1 fL (7.4-11.4); NEUTROPHILS % (AUTO) 68.1 %; RED BLOOD COUNT 4.17 10^6/uL (4.70-6.10); RED CELL DISTRIBUTION WIDTH 16.4 % (12.0-15.0); WHITE BLOOD COUNT 17.2 x10^3/uL (4.8-10.8)
[2024-08-05 06:15] LABS: PLT - PLATELET COUNT 165 10^3/uL (130-450)
[2024-08-05 06:16] LABS: CALCIUM 6.7 mg/dL (8.5-10.3); CREATININE 0.8 mg/dL (0.6-1.3); POTASSIUM 2.6 mmol/L (3.5-4.5)
[2024-08-05 06:17] LABS: ABNORMAL LYMPHS % (MANUAL) 0 %
[2024-08-05 06:38] LABS: BAND NEUTROPHILS % (MANUAL) 4 %; EOSINOPHILS # (MANUAL) 3.8 10^3/uL (0-0.7); LYMPHOCYTES # (MANUAL) 0.9 10^3/uL (1.5-3.5); LYMPHOCYTES % (MANUAL) 5 %; MONOCYTES # (MANUAL) 1.2 10^3/uL (0.0-1.0); NEUTROPHILS # (MANUAL) 11.4 10^3/uL (1.5-6.6)
[2024-08-05 06:39] LABS: DIFFERENTIAL COMMENT MANUAL DIFFERENTIAL; PLATELET ESTIMATE, MANUAL NORMAL (130-450,000) (NORMAL); PLATELET MORPHOLOGY PLATELET CLUMPING (NORMAL); RBC MORPHOLOGY (MULTIPLE) NORMAL APPEARANCE (NORMAL); WBC MORPHOLOGY (MULTIPLE) 1+ TOXIC GRANULATION (NORMAL)
[2024-08-05] MEDS: POTASSIUM CHLOR 10 MEQ/100 ML 10 MEQ/100 ML BAG IV SCH (09:10)
[2024-08-05] MEDS: POTASSIUM CHLORIDE 20 MEQ TABLET PO ONE (09:10)
--- NOTE | 2024-08-05 12:37 | PROVIDER PROGRESS NOTE ---
Subjective Prog Note Date Prog Note Date: 08/05/24 Subjective Pt reports feeling: No change Subjective: When I asked patient how he is, he said "not so good". Offers no other complaints. says, "we are ready for hospice". Current Medications Current Medications Current Medications: Current Medications Generic Name Dose Route Start Last Admin Trade Name Freq PRN Reason Stop Dose Admin Acetaminophen 650 mg 08/01/24 20:53 08/02/24 07:03 Acetaminophen 325 Mg Tablet PO 650 mg Q4HR PRN Administration Pain 1 to 4, or Fever Apixaban 5 mg 08/02/24 09:00 08/05/24 09:11 Apixaban 5 Mg Tablet PO 5 mg BID KINGS Administration Ceftriaxone Sodium 1 gm 08/02/24 11:00 08/05/24 09:11 Ceftriaxone 1 Gm Vial IVP 1 gm DAILY KINGS Administration Folic Acid 1 mg 08/02/24 09:00 08/05/24 09:11 Folic Acid 1 Mg Tablet PO 1 mg DAILY KINGS Administration Hydromorphone HCl 0.5 mg 08/02/24 17:21 08/05/24 03:43 Hydromorphone 0.5 Mg/0.5 Ml Syringe IVP 0.5 mg Q2H PRN Administration Severe Pain (Level 7-10) Bumetanide 10 mg/ Sodium 250 mls @ 12.5 mls/hr 08/04/24 13:00 08/05/24 09:31 Chloride IV 0.5 mg/hr .Q20H KINGS 12.5 mls/hr Administration Protocol 0.5 MG/HR Potassium Chloride 10 meq in 100 mls @ 100 mls/hr 08/05/24 09:00 08/05/24 11:01 Potassium Chloride IV 08/05/24 12:59 100 mls/hr Q1H KINGS Administration Midodrine 5 mg 08/03/24 10:00 08/05/24 05:42 Midodrine 2.5 Mg Tablet PO 5 mg TID KINGS Administration Mirtazapine 15 mg 08/02/24 21:00 08/04/24 22:17 Mirtazapine 15 Mg Tablet PO 15 mg QPM KINGS Administration Ondansetron HCl 4 mg 08/03/24 14:53 08/04/24 22:08 Ondansetron 4 Mg/2 Ml Vial IVP 4 mg Q4HR PRN Administration Nausea / Vomiting Oxycodone HCl 10 mg 08/02/24 09:19 08/04/24 05:59 Oxycodone 5 Mg Tablet PO 10 mg Q3H PRN Administration Moderate Pain (Level 4-6) Pantoprazole Sodium 40 mg 08/05/24 16:00 Pantoprazole 40 Mg Tablet PO BIDAC KINGS Fentanyl 75 Mcg/Hr 1 each 08/04/24 13:00 08/04/24 15:49 Patch 72 Hour TOP 1 each Q72H KINGS Administration Polyethylene Glycol 17 gm 08/03/24 09:00 08/05/24 09:10 Polyethylene Glycol 3350 17 Gm Packet PO 17 gm DAILY KINGS Administration Prochlorperazine Edisylate 10 mg 08/03/24 14:53 Prochlorperazine 10 Mg/2 Ml Vial IVP Q6HR PRN Nausea / Vomiting Senna 8.6 - 17.2 mg 08/03/24 05:00 08/05/24 09:11 Senna 8.6 Mg Tablet PO 8.6 mg DAILY KINGS Administration Sodium Chloride 10 ml 08/01/24 20:53 Sodium Chloride Flush 0.9% 10 Ml Syringe IVP PRN PRN NEEDED PER PROVIDER ORDERS Sodium Chloride 10 ml 08/02/24 01:00 08/05/24 09:11 Sodium Chloride Flush 0.9% 10 Ml Syringe IVP 10 ml 0100,0900,1700 KINGS Administration Objective Vital Signs/Intake & Output Reviewed Vital Signs: Yes Vital Signs: Vital Signs x48h Temp Pulse Resp BP Pulse Ox 08/05/24 08:10 37.1 C 106 H 16 90/61 96 Intake & Output: Intake & Output 08/02/24 08/03/24 08/04/24 08/05/24 23:59 23:59 23:59 23:59 Intake Total 470 / 470 586 / 586 880 / 880 350 / 350 Output Total 175 / 175 2200 / 2200 2200 / 2200 Balance 295 / 295 586 / 586 -1320 / -1320 -1850 / -1850 Weight (kg) 69.5 kg Objective General Appearance: positive No acute distress and Alert Eyes Bilateral: positive Other ENT: positive Other (Bitemporal wasting) Neck: positive Nml inspection Respiratory: positive Chest non-tender Cardiovascular: positive Regular rate & rhythm Abdomen: positive Tenderness Skin: positive Color nml Extremities: positive Non-tender and No pedal edema Neurologic/Psychiatric: positive Oriented x3 Lab Results 08/05/24 05:37 08/05/24 05:37 Other Labs: Lab Results x24hrs 08/05/24 Range/Units 05:37 WBC 17.2 H (4.8-10.8) x10^3/uL RBC 4.17 L (4.70-6.10) 10^6/uL Hgb 13.3 L (14.0-18.0) g/dL Hct 39.7 L (42.0-52.0) % MCV 95.2 H (80.0-94.0) fL MCH 31.9 H (27.0-31.0) pg MCHC 33.5 (32.0-36.0) g/dL RDW 16.4 H (12.0-15.0) % Plt Count 165 (130-450) 10^3/uL MPV 11.1 (7.4-11.4) fL Neut # (Auto) Not Reportable Lymph # (Auto) Not Reportable [place] # (Auto) Not Reportable Eos # (Auto) Not Reportable Baso # (Auto) Not Reportable Absolute Nucleated RBC Not Reportable Total Counted 100 Band Neuts % (Manual) 4 (0 - 10) % Abnorm Lymph % (Manual) 0 % Nucleated RBC % Not Reportable Neutrophils # (Manual) 11.4 H (1.5-6.6) 10^3/uL Lymphocytes # (Manual) 0.9 L (1.5-3.5) 10^3/uL Monocytes # (Manual) 1.2 H (0.0-1.0) 10^3/uL Eosinophils # (Manual) 3.8 H (0-0.7) 10^3/uL Basophils # (Manual) 0.0 (0-0.1) 10^3/uL Differential Comment MANUAL DIFFERENTIAL WBC Morphology 1+ TOXIC GRANULATION (NORMAL) Platelet Estimate NORMAL (130-450,000) (NORMAL) Platelet Morphology PLATELET CLUMPING (NORMAL) RBC Morph Micro Appear NORMAL APPEARANCE (NORMAL) Sodium 136 (135-145) mmol/L Potassium 2.6 L (3.5-4.5) mmol/L Chloride 98 L (101-111) mmol/L Carbon Dioxide 30 (21-32) mmol/L Anion Gap 8.0 (6-13) BUN 14 (6-20) mg/dL Creatinine 0.8 (0.6-1.3) mg/dL Estimated GFR (MDRD) 94 (>89) Glucose 120 H (74-104) mg/dL Calcium 6.7 L (8.5-10.3) mg/dL Assessment/Plan Problem List (1) Cancer, metastatic to liver: Impression: Oncology stopped by bedside today. no further treatment is available. he is too weak to withstand further tx. agrees that he is in need of hospice services at this time. They will be having informational visit with [facility] this afternoon. Family has elected to admit to hospice. 08/02/2024: I spoke with hospice today, they will send an RN over for an informational visit Suspect that placement could not happen until Saturday or Saturday I am continuing medical management of complications of his cancer for now He continues to endorse severe cancer related pain, I am adding Dilaudid 0.5 mg IV as needed I am continuing his oxycodone 10 mg p.o. every 3 hours He has a fentanyl patch on that was placed last night from home 08/03/2024: I am continuing his home fentanyl patch and oxycodone. I am also continuing his Dilaudid 0.5 mg IV. Nursing to monitor closely for respiratory depression. Still awaiting input from hospice regarding placement at discharge. Family is open to discussing with hospice but has not agreed to make him hospice yet. Family reports that Dr. Olmedo had recommended a thoracentesis as he continues to have pleural effusion. He still has a pneumothorax from the last thoracentesis and is on room air with no respiratory distress so I am hesitant to perform another thoracentesis at this time 08/04: Established with Dr. Olmedo/Jany Altamirano On capmatinib for his lung cancer He is already established with palliative care He had a recent informational visit with hospice, but he and his declined at that time (2) Anasarca: Impression: He does not appear clinically fluid overloaded today. lungs are clear to auscultation. He is -3L in the last 24 hours, I am going to dc bumex gtt. This will also help with his hypokalemia, and potentially his hypotension. 08/04/24 07:59 08/04/24 15:39 08/04/24 23:34 Pulse Rate [Brachial] 91 71 Pulse Rate [Monitoring electrodes] 76 Blood Pressure [Left Brachial artery] 97/68 86/63 L Blood Pressure [Right Brachial artery] 91/61 08/05/24 08:10 Pulse Rate [Brachial] 106 H Pulse Rate [Monitoring electrodes] Blood Pressure [Left Brachial artery] 90/61 Blood Pressure [Right Brachial artery] 08/03/2024: Blood pressure this morning was 89/58. I have added midodrine and albumin to support diuresis. I am continuing to impress upon the family at bedside that he is actively dying. Awaiting hospice input 08/04/2024: Hospitalist rounded yesterday while was not available. The goes home and takes naps during the day. Plan to have discussion with at bedside at 3 with hospice present. I did reach out to the oncology office to ask for their input. I suspect that this patient has less than 2 weeks to live regardless of any treatment. The midodrine has had some effect on blood pressure, it was 91/61 this morning. I am continuing the midodrine. He has poor urine output. I am switching him to a Bumex drip for more gentle diuresis (3) Pneumothorax on right: Impression: Stable If he has any respiratory distress, will obtain chest x-ray. He is not tachypneic nor does he have any chest pain today. (4) Hypokalemia: Impression: likely due to diuresis. K = 2.6 today. has been given 40mEq po and 40mEq IV repletion. I have ordered BMP for the AM. (5) Urinary tract infection: Impression: Urine culture positive for jewell sensitive E coli. Will do a total of 5 days IV abx. He is day 07/25- this is a mix of rocephin which was escalated to Zosyn. I will continue Zosyn through 08/06. I have spent 36 minutes in the care of this patient today. This includes time [id number], review and ordering of diagnostic imaging and laboratory studies. Monitoring the patient's signs symptoms, evaluation of medication effectiveness and patient's response to treatment.
[2024-08-05] MEDS: PANTOPRAZOLE 40 MG TABLET PO SCH (16:15)
[2024-08-05] MEDS: LORazepam 2 MG/ML VIAL IVP PRN (21:27)
[2024-08-05] MEDS: GLYCOPYRROLATE 1 MG/5 ML VIAL SUBQ PRN (21:36)
[2024-08-06 00:50] VITALS: O2SAT 96
[2024-08-06 05:54] LABS: BASOPHILS % (AUTO) 0.6 %; EOSINOPHILS % (AUTO) 14.1 %; HCT - HEMATOCRIT 36.5 % (42.0-52.0); HGB - HEMOGLOBIN 12.4 g/dL (14.0-18.0); LYMPHOCYTES % (AUTO) 7.9 %; MEAN CORPUSCULAR HEMOGLOBIN 32.5 pg (27.0-31.0); MEAN CORPUSCULAR VOLUME 95.8 fL (80.0-94.0); MEAN PLATELET VOLUME 10.6 fL (7.4-11.4); MONOCYTES % (AUTO) 10.3 %; NEUTROPHILS % (AUTO) 66.7 %; RED BLOOD COUNT 3.81 10^6/uL (4.70-6.10); RED CELL DISTRIBUTION WIDTH 16.6 % (12.0-15.0); WHITE BLOOD COUNT 16.2 x10^3/uL (4.8-10.8)
[2024-08-06 06:20] LABS: ABNORMAL LYMPHS % (MANUAL) 0 %
[2024-08-06 06:21] LABS: CREATININE 0.8 mg/dL (0.6-1.3); POTASSIUM 3.1 mmol/L (3.5-4.5)
[2024-08-06 06:31] LABS: BAND NEUTROPHILS % (MANUAL) 5 %; DIFFERENTIAL COMMENT MANUAL DIFFERENTIAL; EOSINOPHILS # (MANUAL) 3.9 10^3/uL (0-0.7); LYMPHOCYTES # (MANUAL) 0.8 10^3/uL (1.5-3.5); LYMPHOCYTES % (MANUAL) 5 %; MONOCYTES # (MANUAL) 0.6 10^3/uL (0.0-1.0); NEUTROPHILS # (MANUAL) 10.9 10^3/uL (1.5-6.6); PLATELET ESTIMATE, MANUAL NORMAL (130-450,000) (NORMAL); PLATELET MORPHOLOGY PLATELET CLUMPING (NORMAL); RBC MORPHOLOGY (MULTIPLE) NORMAL APPEARANCE (NORMAL); WBC MORPHOLOGY (MULTIPLE) NORMAL APPEARANCE (NORMAL)
[2024-08-06 06:32] LABS: PLT - PLATELET COUNT 149 10^3/uL (130-450)
--- NOTE | 2024-08-06 14:12 | PROVIDER PROGRESS NOTE ---
Subjective Prog Note Date Prog Note Date: 08/06/24 Subjective Subjective: has been somnolent but comfortable most of the day Current Medications Current Medications Current Medications: Current Medications Generic Name Dose Route Start Last Admin Trade Name Freq PRN Reason Stop Dose Admin Acetaminophen 650 mg 08/01/24 20:53 08/02/24 07:03 Acetaminophen 325 Mg Tablet PO 650 mg Q4HR PRN Administration Pain 1 to 4, or Fever Apixaban 5 mg 08/02/24 09:00 08/06/24 09:31 Apixaban 5 Mg Tablet PO Not Given BID KINGS Folic Acid 1 mg 08/02/24 09:00 08/06/24 09:31 Folic Acid 1 Mg Tablet PO Not Given DAILY KINGS Glycopyrrolate 0.2 mg 08/05/24 19:47 08/05/24 21:36 Glycopyrrolate 1 Mg/5 Ml Vial SUBQ 0.2 mg Q4H PRN Administration Excessive secretions Hydromorphone HCl 0.5 mg 08/02/24 17:21 08/06/24 06:01 Hydromorphone 0.5 Mg/0.5 Ml Syringe IVP 0.5 mg Q2H PRN Administration Severe Pain (Level 7-10) Lorazepam 1 mg 08/05/24 19:47 08/05/24 21:27 Lorazepam 2 Mg/Ml Vial IVP 1 mg Q6H PRN Administration Anxiety/Agitation Midodrine 5 mg 08/03/24 10:00 08/06/24 13:54 Midodrine 2.5 Mg Tablet PO Not Given TID KINGS Mirtazapine 15 mg 08/02/24 21:00 08/05/24 21:31 Mirtazapine 15 Mg Tablet PO 15 mg QPM KINGS Administration Ondansetron HCl 4 mg 08/03/24 14:53 08/05/24 16:15 Ondansetron 4 Mg/2 Ml Vial IVP 4 mg Q4HR PRN Administration Nausea / Vomiting Oxycodone HCl 10 mg 08/02/24 09:19 08/04/24 05:59 Oxycodone 5 Mg Tablet PO 10 mg Q3H PRN Administration Moderate Pain (Level 4-6) Pantoprazole Sodium 40 mg 08/05/24 16:00 08/06/24 05:49 Pantoprazole 40 Mg Tablet PO 40 mg BIDAC KINGS Administration Fentanyl 75 Mcg/Hr 1 each 08/04/24 13:00 08/04/24 15:49 Patch 72 Hour TOP 1 each Q72H KINGS Administration Polyethylene Glycol 17 gm 08/03/24 09:00 08/06/24 09:31 Polyethylene Glycol 3350 17 Gm Packet PO Not Given DAILY KINGS Prochlorperazine Edisylate 10 mg 08/03/24 14:53 Prochlorperazine 10 Mg/2 Ml Vial IVP Q6HR PRN Nausea / Vomiting Senna 8.6 - 17.2 mg 08/03/24 05:00 08/06/24 09:31 Senna 8.6 Mg Tablet PO Not Given DAILY KINGS Sodium Chloride 10 ml 08/01/24 20:53 Sodium Chloride Flush 0.9% 10 Ml Syringe IVP PRN PRN NEEDED PER PROVIDER ORDERS Sodium Chloride 10 ml 08/02/24 01:00 08/06/24 09:26 Sodium Chloride Flush 0.9% 10 Ml Syringe IVP 10 ml 0100,0900,1700 KINGS Administration Objective Vital Signs/Intake & Output Reviewed Vital Signs: Yes Vital Signs: Vital Signs x48h Temp Pulse Resp BP BP Pulse Ox 08/06/24 08:10 36.5 C 102 H 18 97/64 86/62 L 96 Intake & Output: Intake & Output 08/03/24 08/04/24 08/05/24 08/06/24 23:59 23:59 23:59 23:59 Intake Total 586 / 586 880 / 880 959 / 959 Output Total 2200 / 2200 2675 / 2675 Balance 586 / 586 -1320 / -1320 -1716 / -1716 Weight (kg) 69.5 kg Objective General Appearance: positive No acute distress and Alert Eyes Bilateral: positive Other ENT: positive Other (Bitemporal wasting) Neck: positive Nml inspection Respiratory: positive Chest non-tender Cardiovascular: positive Regular rate & rhythm Abdomen: positive Tenderness Skin: positive Color nml Extremities: positive Non-tender and No pedal edema Neurologic/Psychiatric: positive Oriented x3 Lab Results 08/06/24 05:35 08/06/24 05:35 Other Labs: Lab Results x24hrs 08/06/24 Range/Units 05:35 WBC 16.2 H (4.8-10.8) x10^3/uL RBC 3.81 L (4.70-6.10) 10^6/uL Hgb 12.4 L (14.0-18.0) g/dL Hct 36.5 L (42.0-52.0) % MCV 95.8 H (80.0-94.0) fL MCH 32.5 H (27.0-31.0) pg MCHC 34.0 (32.0-36.0) g/dL RDW 16.6 H (12.0-15.0) % Plt Count 149 (130-450) 10^3/uL MPV 10.6 (7.4-11.4) fL Neut # (Auto) Not Reportable Lymph # (Auto) Not Reportable [place] # (Auto) Not Reportable Eos # (Auto) Not Reportable Baso # (Auto) Not Reportable Absolute Nucleated RBC Not Reportable Total Counted 100 Band Neuts % (Manual) 5 (0 - 10) % Abnorm Lymph % (Manual) 0 % Nucleated RBC % Not Reportable Neutrophils # (Manual) 10.9 H (1.5-6.6) 10^3/uL Lymphocytes # (Manual) 0.8 L (1.5-3.5) 10^3/uL Monocytes # (Manual) 0.6 (0.0-1.0) 10^3/uL Eosinophils # (Manual) 3.9 H (0-0.7) 10^3/uL Basophils # (Manual) 0.0 (0-0.1) 10^3/uL Differential Comment MANUAL DIFFERENTIAL WBC Morphology NORMAL APPEARANCE (NORMAL) Platelet Estimate NORMAL (130-450,000) (NORMAL) Platelet Morphology PLATELET CLUMPING (NORMAL) RBC Morph Micro Appear NORMAL APPEARANCE (NORMAL) Sodium 135 (135-145) mmol/L Potassium 3.1 L (3.5-4.5) mmol/L Chloride 98 L (101-111) mmol/L Carbon Dioxide 33 H (21-32) mmol/L Anion Gap 4.0 L (6-13) BUN 19 (6-20) mg/dL Creatinine 0.8 (0.6-1.3) mg/dL Estimated GFR (MDRD) 94 (>89) Glucose 101 (74-104) mg/dL Calcium 7.0 L (8.5-10.3) mg/dL Assessment/Plan Problem List (1) Cancer, metastatic to liver: Impression: Oncology has consulted. no further treatment is available. he is too weak to withstand further tx. agrees that he is in need of hospice services at this time. will be admitted to hospice on 08/07. comfort pack meds were [facility] to [facility] today. 08/02/2024: I spoke with hospice today, they will send an RN over for an informational visit Suspect that placement could not happen until Saturday or Saturday I am continuing medical management of complications of his cancer for now He continues to endorse severe cancer related pain, I am adding Dilaudid 0.5 mg IV as needed I am continuing his oxycodone 10 mg p.o. every 3 hours He has a fentanyl patch on that was placed last night from home 08/03/2024: I am continuing his home fentanyl patch and oxycodone. I am also continuing his Dilaudid 0.5 mg IV. Nursing to monitor closely for respiratory depression. Still awaiting input from hospice regarding placement at discharge. Family is open to discussing with hospice but has not agreed to make him hospice yet. Family reports that Dr. Olmedo had recommended a thoracentesis as he continues to have pleural effusion. He still has a pneumothorax from the last thoracentesis and is on room air with no respiratory distress so I am hesitant to perform another thoracentesis at this time 08/04: Established with Dr. Olmedo/Jany Altamirano On capmatinib for his lung cancer He is already established with palliative care He had a recent informational visit with hospice, but he and his declined at that time (2) Anasarca: Impression: Improved. 08/03/2024: Blood pressure this morning was 89/58. I have added midodrine and albumin to support diuresis. I am continuing to impress upon the family at bedside that he is actively dying. Awaiting hospice input 08/04/2024: Hospitalist rounded yesterday while was not available. The goes home and takes naps during the day. Plan to have discussion with at bedside at 3 with hospice present. I did reach out to the oncology office to ask for their input. I suspect that this patient has less than 2 weeks to live regardless of any treatment. The midodrine has had some effect on blood pressure, it was 91/61 this morning. I am continuing the midodrine. He has poor urine output. I am switching him to a Bumex drip for more gentle diuresis (3) Pneumothorax on right: Impression: Stable If he has any respiratory distress, will obtain chest x-ray. He is not tachypneic nor does he have any chest pain today. (4) Hypokalemia: Impression: likely due to diuresis. K = 3.1, improved. . no further repletion today labs cancelled. he is comfort status. . (5) Urinary tract infection: Impression: Urine culture positive for jewell sensitive E coli. Will do a total of 5 days IV abx. He is day 08/24- this is a mix of rocephin which was escalated to Zosyn. abx finished. I have spent 26 minutes in the care of this patient today. This includes time [id number], review and ordering of diagnostic imaging and laboratory studies. Monitoring the patient's signs symptoms, evaluation of medication effectiveness and patient's response to treatment.
--- NOTE | 2024-08-06 15:13 | CT Report ---
PROCEDURE: CHEST W INDICATIONS: lung cancer, anasarca, SOA TECHNIQUE: After the administration of intravenous contrast, 1 mm axial images were acquired from the pulmonary apices through the posterior costophrenic angles. Axial 5 mm soft tissue kernel reconstructions were performed as well as 8 mm axial MIP and coronal and sagittal 5 mm reformations. For radiation dose reduction, the following was used: automated exposure control, adjustment of mA and/or kV according to patient size. COMPARISON: CT angiogram of chest dated 07/17/2024. FINDINGS: Image quality: Excellent. Lungs and pleura: Moderate to large right pleural effusion and moderate left pleural effusion with ne ar complete atelectasis of bilateral lower lobes. Scarring/atelectasis in posterior aspect of bilater al upper lobes and right middle lobe are seen. There is small pneumothorax along anterior aspect of r ight hemithorax. Mediastinum: Heart size is enlarged. No pericardial effusion. No large vessel abnormality. Soft tissu e fullness in mediastinum and bilateral hilar region are seen concerning for lymphadenopathy. Soft ti ssue density is also noted in right hilar region and may indicate malignant process in this area give n patient's history. Chest wall and lower neck: Thyroid is unremarkable. No axillary or supraclavicular adenopathy by size . Generalized anasarca. Bones: Extensive heterogeneous marrow density throughout the bony thorax suggestive of extensive bony metastases. Upper Abdomen: Please refer to CT of abdomen and pelvis findings. IMPRESSION: 1. Moderate to large right pleural effusion and moderate left pleural effusion with near complete ate lectasis of bilateral lower lobe and segmental atelectasis in posterior aspect of bilateral upper lob es and right middle lobe. Ill-defined soft tissue density in right infrahilar region which may repres ent malignant process given patient's history. Small anterior right pneumothorax. 2. Suggestion of mediastinal or hilar lymphadenopathy. Cardiomegaly, no pericardial effusion. 3. Generalized anasarca. 4. Extensive bony metastases. Reviewed by: Osmar Regalado MD on 08/01/2024 4:59 PM PDT Approved by: Osmar Regalado MD on 08/01/2024 4:59 PM PDT Station ID: [id number]
--- NOTE | 2024-08-06 15:13 | CT Report ---
PROCEDURE: ABDOMEN/PELVIS W INDICATIONS: lung cancer, weakness, back pain TECHNIQUE: After the administration of intravenous contrast, a CT scan of the abdomen and pelvis was performed. Images were recorded and evaluated at appropriate window settings. Reformats: coronal and sagittal. F or radiation dose reduction, the following was used: automated exposure control, adjustment of mA and /or kV according to patient size. COMPARISON: 04/28/2024. FINDINGS: Image quality: Diagnostic. Lower chest: Base correlate with CT chest findings from the same day. Liver: Extensive liver metastatic disease significantly increased in size and numbers compared to pre vious study with the largest lesion in right hepatic dome measures up to 4.0 x 4.6 cm in size series 2 image 32. Gallbladder: Gallbladder is distended contains a single calcified stone. No gallbladder wall thickeni ng. Biliary tree: No intrahepatic or extrahepatic dilation, accounting for age. Spleen: No splenomegaly. Pancreas: No pancreatic ductal dilation. Adrenals: Ill-defined heterogeneous enhancing bilateral adrenal nodules are seen. Kidneys and ureters: No hydronephrosis. Simple appearing right renal cyst is again seen. No renal cys tic lesion which requires follow up. No solid mass. Stomach, bowel and peritoneum: There is moderate to large fecal stasis in the colon. Colonic divertic ulosis without CT evidence of acute diverticulitis. Questionable gastric wall thickening which may in dicate gastritis versus under distention. No small bowel wall thickening. No abscess collection. No f ree fluid or free air. Lymph nodes: No central or retroperitoneal adenopathy. Vessels: Mild infrarenal abdominal aortic aneurysm measures up to 2.8 x 3.3 cm in largest AP and henderson sverse diameter. Patent portal vein. PELVIS Reproductive organs: Unremarkable. Bladder: No abnormal wall thickening. Pelvic lymph nodes: No pelvic adenopathy by size criteria. Bones: Well-defined sclerotic areas seen scattered throughout the bony pelvis, lower thoracic and lum bar spine suggestive of extensive bony metastases. Other: No significant ventral or inguinal hernia. Generalized anasarca is seen. IMPRESSION: 1. Interval progression of liver metastases as above. 2. Cholelithiasis. No CT evidence of acute cholecystitis. 3. Generalized anasarca. 4. No bowel obstruction or abnormal bowel wall thickening. No abscess collection. No free fluid of fr ee air. 5. Extensive bony metastases significantly progressed since previous study. No gross pathologic fract ure. 6. Ill-defined heterogeneously enhancing bilateral adrenal nodules more prominent on the right side c oncerning for adrenal metastases. Reviewed by: Osmar Regalado MD on 08/01/2024 4:53 PM PDT Approved by: Osmar Regalado MD on 08/01/2024 4:53 PM PDT Station ID: [id number]
[2024-08-06] MEDS: polyethylene glycoL 3350 17 GM PACKET PO SCH (22:45)
[2024-08-07 07:52] VITALS: BP 155/79; TEMP 98.1
--- NOTE | 2024-08-07 16:36 | Discharge Summary ---
"Discharge Summary Admit Date: 08/01/24 Discharge Date: 08/07/24 Discharging Provider: Rissa Werner PA-C Primary Care Provider: Neil Stearns MD Code Status: Do Not Attempt Resuscitation DIAGNOSES Discharge Diagnoses with Status of Each Condition: Lung cancer metastasized to [facility] hospice care Anasarcaimproved Pneumothoraxiatrogenic, asymptomatic Hypokalemia improved, comfort care status no further monitoring Urinary tract infectiontreated and resolved HPI History of Present Illness: Mr. Christian presented to the ED for follow up of lower extremity swelling. Doppler ultrasound demonstrated bilateral lower extremity DVTs. Patient also reported shortness of breath that has been associated with his lower extremity edema and has progressively worsened over the past week. He denied cough or chest pain. CT was obtained in the ED and demonstrated right subsegmental PE. patient vitals were stable on room air, he was without chest pain. Troponin and EKG within normal limits. Hospitalist asked to admit for observation and intiation of anticoagulation. CONSULTS | PROCEDURES Consultations: Palliative care-Joyce Gómez Procedures: Chest CT: Moderate to large right pleural effusion and moderate left pleural effusion with near complete atelectasis of bilateral lower lobes and segmental atelectasis in the posterior aspect of bilateral upper lobes and right middle lobe. Ill-defined soft tissue density in right infrahilar region may represent malignant process. Small anterior right pneumothorax. Suggestion of mediastinal or hilar lymphadenopathy. Cardiomegaly without pericardial effusion. Generalized anasarca Extensive bony metastasis CT abdomen pelvis: Interval progression of liver metastasis, cholelithiasis without cholecystitis, generalized anasarca, no bowel obstruction or abnormal bowel wall thickening no abscess collection or abdominal free fluid. Extensive bony metastasis which have progressed without pathologic fracture. Heterogeneously enhancing bilateral adrenal nodules right greater than left concerning for adrenal metastases. HOSPITAL COURSE Hospital Course: (1) Cancer, metastatic to liver: Oncology has consulted. no further treatment is available. he is too weak to withstand further tx. agrees that he is in need of hospice services at this time. will be admitted to hospice on 08/07. comfort pack meds were [facility] to [facility]. 08/02/2024: I spoke with hospice today, they will send an RN over for an informational visit Suspect that placement could not happen until Saturday or Saturday I am continuing medical management of complications of his cancer for now He continues to endorse severe cancer related pain, I am adding Dilaudid 0.5 mg IV as needed I am continuing his oxycodone 10 mg p.o. every 3 hours He has a fentanyl patch on that was placed last night from home 08/03/2024: I am continuing his home fentanyl patch and oxycodone. I am also continuing his Dilaudid 0.5 mg IV. Nursing to monitor closely for respiratory depression. Still awaiting input from hospice regarding placement at discharge. Family is open to discussing with hospice but has not agreed to make him hospice yet. Family reports that Dr. Olmedo had recommended a thoracentesis as he continues to have pleural effusion. He still has a pneumothorax from the last thoracentesis and is on room air with no respiratory distress so I am hesitant to perform another thoracentesis at this time 08/04: Established with Dr. Olmedo/Jany Altamirano On capmatinib for his lung cancer He is already established with palliative care He had a recent informational visit with hospice, but he and his declined at that time (2) Anasarca: Improved. 08/03/2024: Blood pressure this morning was 89/58. I have added midodrine and albumin to support diuresis. I am continuing to impress upon the family at bedside that he is actively dying. Awaiting hospice input 08/04/2024: Hospitalist rounded yesterday while was not available. The goes home and takes naps during the day. Plan to have discussion with at bedside at 3 with hospice present. I did reach out to the oncology office to ask for their input. I suspect that this patient has less than 2 weeks to live regardless of any treatment. The midodrine has had some effect on blood pressure, it was 91/61 this morning. I am continuing the midodrine. He has poor urine output. I am switching him to a Bumex drip for more gentle diuresis (3) Pneumothorax on right: Stable on imaging and not symptomatic. related to thoracentesis. (4) Hypokalemia: likely due to diuresis. K = 3.1, improved. . no further repletion labs cancelled. he is comfort status. . (5) Urinary tract infection: Impression: Urine culture positive for jewell sensitive E coli. Will do a total of 5 days IV abx. He is day 5- this is a mix of rocephin which was escalated to Zosyn. abx finished. ALLERGIES Allergies Allergy/AdvReac Type Severity Reaction Status Date / Time No Known Drug Allergies Allergy Verified 07/22/24 12:35 MEDICATIONS Ambulatory Orders Medication Instructions Recorded Confirmed Permanent Disabled Placard #1 ea 05/27/24 07/23/24 bisacodyl 10 mg rectal suppository 10 mg UT DAILY PRN Constipation #3 08/06/24 (Dulcolax (bisacodyl)) ea lorazepam 0.5 mg tablet (Ativan) 0.5 mg PO Q6H PRN Anxiety #10 tabs 08/06/24 morphine concentrate 100 mg/5 mL 5 mg (0.25 mL) PO Q4H PRN pain or 08/06/24 (20 mg/mL) oral solution breathlessness #30 mL olanzapine 5 mg disintegrating 5 mg PO DAILY PRN Agitation, 08/06/24 tablet (Zyprexa Zydis) nausea and vomiting #10 tabs sennosides 8.6 mg tablet (senna) 8.6 mg PO BID PRN Constipation #10 08/06/24 tabs PHYSICAL EXAM AT DISCHARGE Physical Exam Other/Comments: General Appearance: positive No acute distress and somnolent Eyes Bilateral: positive Other ENT: positive Other (Bitemporal wasting) Neck: positive Nml inspection Respiratory: positive Chest non-tender Cardiovascular: positive Regular rate & rhythm Abdomen: positive Tenderness Skin: positive Color nml Extremities: positive Non-tender and No pedal edema Neurologic/Psychiatric:arousable, but does not answer questions. LABS 08/06/24 05:35 08/06/24 05:35 FOLLOW UP Follow Up: patient admitted to hospice. TIME SPENT Time Spent in Discharge (Minutes): 35 Discharge Plan Discharge Patient Disposition: 50 Hospice/Home DC/Xfer Condition: Poor Medically Cleared Date:: 08/07/24 Prescriptions: New sennosides [senna] 8.6 mg Tablet 8.6 mg PO BID PRN (Reason: Constipation) Qty: 10 0RF Rx Instructions: Take one tablet, by mouth, twice a day as needed for constipation. morphine concentrate 100 mg/5 mL (20 mg/mL) Solution 5 mg PO Q4H PRN (Reason: pain or breathlessness) Qty: 30 0RF Rx Instructions: Take 0.25 ml (equal to 5 mg) by mouth, or under the tongue, every 4 hours as needed for moderate to severe pain. lorazepam [Ativan] 0.5 mg Tablet 0.5 mg PO Q6H PRN (Reason: Anxiety) Qty: 10 0RF Rx Instructions: Take one tablet, by mouth, every 6 hours as needed for anxiety. bisacodyl [Dulcolax (bisacodyl)] 10 mg Suppository 10 mg UT DAILY PRN (Reason: Constipation) Qty: 3 0RF Rx Instructions: Unwrap and insert one suppository rectally daily, as needed for constipation. olanzapine [Zyprexa Zydis] 5 mg Tablet,Disintegrating 5 mg PO DAILY PRN (Reason: Agitation, nausea and vomiting) Qty: 10 0RF Rx Instructions: Dissolve one tablet, in mouth, twice daily as needed for agitation or nausea and/or vomiting. Continued (DME) [facility] .ROUTE .MEDSUPPLY Qty: 1 0RF Rx Instructions: As directed Discontinued ondansetron 4 mg tablet,disintegrating 4 mg PO Q6H PRN (Reason: nausea and vomiting) Qty: 60 3RF fentanyl 75 mcg/hr patch 72 hour 1 patch transdermal Q72H Qty: 10 0RF oxycodone 10 mg tablet 10 mg PO Q3H PRN (Reason: pain) Qty: 240 0RF Eliquis 5 mg tablet 5 mg PO BID Qty: 180 2RF pantoprazole [Protonix] 40 mg tablet,delayed release (DR/EC) 40 mg PO BID Qty: 90 3RF mirtazapine 15 mg tablet 7.5 mg PO QPM folic acid 1 mg tablet 1 mg PO QDAY Qty: 90 1RF capmatinib 150 mg tablet 300 mg PO BID Rx Instructions: holding for three days PreserVision AREDS 2 Plus MV 200 mcg-15 mcg- 5 mg-1 mg capsule 1 cap PO DAILY omega-3 fatty acids 1,000 mg capsule 1,000 mg PO QDAY Rx Instructions: hold per patient magnesium oxide-Mg AA chelate 300 mg capsule 4 cap PO QDAY Rx Instructions: holding per patient Print Language: Swiss Patient Instructions: Hospice Stand Alone Forms: PCP List Follow-up Care: Neil Stearns MD [Primary Care Provider] -"
== END 2024-08-07 08:55 | disposition hospice, home (50) | DRG 180 ==
LOC: ED 13:05 → MS2 18:16
PROVIDERS: ADMIT Nurse Practitioner Acute Care; ATTEND Nurse Practitioner Acute Care